=== PATIENT | male | born 1955 | race Caucasian/White ===

== ENCOUNTER 2017-10-21 09:45 | Inpatient (IN) | payer MEDICARE, MEDICAID ==
[2017-10-21 09:49] VITALS: BMI 25.7
--- NOTE | 2017-10-21 09:57 | C.PDOC ---
Time Seen by Provider: 10/21/17 09:54 Chief Complaint (Nursing): Weakness/Neurological Deficit Past Medical History - Medical History PMH: Anemia, GERD, HTN, Multiple Sclerosis, Seizures Denies: Alzheimer's Disease, Asthma, Atrial Fibrillation, Bronchitis, Cardia Arrhythmia, CHF, COPD, Dementia, Emphysema, HIV, Hypercholesterolemia, Hyperthyroidism, Hypothyroidism, Kidney Stones, Migraine, Mitral Valve Prolapse , Parkinson's Disease, Peripheral Edema, Pneumonia, Pulmonary Embolism, Chronic Kidney Disease, Sleep Apnea, TIA Surgical History: Denies: Pacemaker - [facility] Procedures INFUSION OF IMMUNOSUPPRESSIVE ANTIBODY THERAPY (05/01/14) INJECT CA CHEMOTHER NEC (02/03/14) INJECT/INFUSE NEC (05/19/13) Family History: States: Unknown Family Hx - Social History Hx Tobacco Use: No Hx Alcohol Use: No Hx Substance Use: No - Immunization History Hx Tetanus Toxoid Vaccination: No Hx Influenza Vaccination: No Hx Pneumococcal Vaccination: No Disposition - Disposition
--- NOTE | 2017-10-21 10:01 | C.PDOC ---
History Of Present Illness 62yo male, with history of MS, sent to ED from [facility] due to slurred speech for an unknown duration. Per patient, he has a chronic weakness to his right arm and bilateral legs. A full HPI and ROS is limited due to patient's clinical condition. LIMITED DUE TO CLIN COND Time Seen by Provider: 10/21/17 09:54 Chief Complaint (Nursing): Weakness/Neurological Deficit History Per: Other ([facility] records) History/Exam Limitations: clinical condition Onset/Duration Of Symptoms: Unknown Past Medical History Reviewed: Historical Data, Nursing Documentation, Vital Signs Vital Signs: Last Vital Signs Temp 101 F H 10/21/17 12:32 Pulse 106 H 10/21/17 12:32 Resp 18 10/21/17 12:32 BP 119/75 10/21/17 12:32 Pulse Ox 97 10/21/17 13:26 - Medical History PMH: Anemia, GERD, HTN, Multiple Sclerosis, Seizures Denies: Alzheimer's Disease, Asthma, Atrial Fibrillation, Bronchitis, Cardia Arrhythmia, CHF, COPD, Dementia, Emphysema, HIV, Hypercholesterolemia, Hyperthyroidism, Hypothyroidism, Kidney Stones, Migraine, Mitral Valve Prolapse , Parkinson's Disease, Peripheral Edema, Pneumonia, Pulmonary Embolism, Chronic Kidney Disease, Sleep Apnea, TIA Surgical History: Denies: Pacemaker - [facility] Procedures INFUSION OF IMMUNOSUPPRESSIVE ANTIBODY THERAPY (05/01/14) INJECT CA CHEMOTHER NEC (02/03/14) INJECT/INFUSE NEC (05/19/13) Family History: States: Unknown Family Hx - Social History Hx Tobacco Use: No Hx Alcohol Use: No Hx Substance Use: No - Immunization History Hx Tetanus Toxoid Vaccination: No Hx Influenza Vaccination: Yes Hx Pneumococcal Vaccination: Yes Review Of Systems Review Of Systems: ROS cannot be obtained secondary to pt's inabilty to answer questions. Physical Exam - Physical Exam Appears: Toxic (mild), Other (moderate painful distress) Skin: Normal Color, Warm, Other (large sacral pressure ulcer) Head: Atraumatic, Normacephalic Eye(s): bilateral: Normal Inspection, PERRL, EOMI Neck: Normal ROM, Supple Chest: Symmetrical Cardiovascular: Rhythm Regular Respiratory: Other (poor effort, no focal findinds) Gastrointestinal/Abdominal: Normal Exam, Soft, No Tenderness Back: Normal Inspection Extremity: Other (chronc contractions to right arm and bilateral legs) Neurological/Psych: Other (Appropriate response to verbal stimulus and command. CN) ED Course And Treatment - Laboratory Results Result Diagrams: 10/21/17 10:14 10/21/17 10:14 ECG: Interpreted By Me ECG Rhythm: Sinus Tachycardia Interpretation Of ECG: TWI I, AVL CHANGED FROM 2014 Rate From EC O2 Sat by Pulse Oximetry: 97 (RA) Pulse Ox Interpretation: Normal Progress - Re-Evaluation Re-evaluation Note: 10/21/17 12:00 IMPROVED ALERTNESS. @ BEDSIDE. STATES PT W SLURRED SPEECH X 4 DAYS, "LESS ALERT". CHRONIC RUE, B/L LEG WEAKNESS. PENDING LABS 10/21/17 13:26 D/W DR BHAT AWARE OF ER FINDINGS WILL ADMIT - Data Reviewed Data Reviewed: Lab, Diagnostic imaging, EKG, Old records - Continuity of Care Discussed patient case with:: Patient, Family-HIPPA compliant Medical Decision Making Medical Decision Making: Plan: -- CMP -- CBC -- Magnesium -- Phosphorous -- PT -- PTT -- VBG -- Urine culture -- Blood culture -- Urinalysis -- CXR -- EKG -- Tylenol 975 mg NE -- IV Lactated Ringers Prior records: Records from patient's last visit in 2014 reviewed, patient was bedridden due to MS. Disposition Counseled Patient/Family Regarding: Studies Performed, Diagnosis - Disposition Disposition: HOSPITALIZED Disposition Time: 14:02 Condition: STABLE Forms: [facility] (Fijian) - POA Present On Arrival: None - Clinical Impression Clinical Impression: Urinary tract infection, Altered mental status - Scribe Statement The provider has reviewed the documentation as recorded by the Scribe (Galilea Kothari) Provider Attestation: All medical record entries made by the Scribe were at my direction and personally dictated by me. I have reviewed the chart and agree that the record accurately reflects my personal performance of the history, physical exam, medical decision making, and the department course for this patient. I have also personally directed, reviewed, and agree with the discharge instructions and disposition. Decision To Admit - Pt Status Changed To: Hospital Disposition Of: Inpatient - Admit Certification Admit to Inpatient:: After my assessment, the patient will require hospitalization for at least two midnights. This is because of the severity of symptoms shown, intensity of services needed, and/or the medical risk in this patient being treated as an outpatient. - InPatient: Physician Admission Certification:: see note - . Bed Request Type: Regular Admitting Physician: Dayanara Bhat Patient Diagnosis: Urinary tract infection, Altered mental status
[2017-10-21 10:21] LABS: BASO % 0.4 % (0.0-2.0); EOS # 0.1 K/uL (0.0-0.7); HEMOGLOBIN 13.2 g/dL (12.0-18.0); LYMPH # 0.8 K/uL (1.0-4.3); LYMPH % 8.8 % (20.0-40.0); MEAN CELL VOLUME 86.4 fL (80.0-94.0); MEAN CORPUSCULAR HEMOGLOBIN 28.7 pg (27.0-31.0); MEAN CORPUSCULAR HGB CONC 33.2 g/dL (33.0-37.0); MEAN PLATELET VOLUME 9.4 fL (7.2-11.7); MONO # 0.5 K/uL (0.0-0.8); MONO % 5.1 % (0.0-10.0); NEUT # 7.8 K/uL (1.8-7.0); NEUT % 84.7 % (50.0-75.0); PLATELET COUNT 190 K/uL (130-400); RBC 4.59 Mil/uL (4.40-5.90); RED CELL DISTRIBUTION WIDTH 15.4 % (11.5-14.5); WHITE BLOOD COUNT 9.2 K/uL (4.8-10.8)
[2017-10-21 10:24] LABS: VENOUS BLOOD GAS BASE EXCESS 1.5 mmol/L (0.0-2.0); VENOUS BLOOD GAS PCO2 39 mmHg (40-60); VENOUS BLOOD GAS PO2 63 mm/Hg (30-55); VENOUS BLOOD PH 7.43 (7.32-7.43)
[2017-10-21 10:29] LABS: INR 1.2; PROTHROMBIN TIME 13.8 SECONDS (9.7-12.2)
--- NOTE | 2017-10-21 10:37 | RAD ---
HISTORY: Sepsis Patient COMPARISON: Chest radiograph dated 10/28/2014. FINDINGS: LUNGS: No active pulmonary disease. PLEURA: No significant pleural effusion identified, no pneumothorax apparent. CARDIOVASCULAR: Normal. OSSEOUS STRUCTURES: Unchanged. VISUALIZED UPPER ABDOMEN: Gaseous distention of bowel loops. OTHER FINDINGS: None. IMPRESSION: No active disease.
[2017-10-21 10:41] LABS: ALBUMIN 3.9 g/dL (3.5-5.0); ALT/SGPT 11 U/L (21-72); AST/SGOT 20 U/L (17-59); BLOOD UREA NITROGEN 14 mg/dL (9-20); CALCIUM 8.3 mg/dl (8.6-10.4); GFR AFRICAN-AMERICAN > 60; GFR NON-AFRICAN AMERICAN > 60
[2017-10-21] MEDS ORDERED: Vancomycin 1 gm/NS 200 ml 1 GM/200 ML BAG IVPB STA (10:42)
[2017-10-21] MEDS ORDERED: Piperacill/Tazo 3.375gm in Dex 3.375 GM/50 ML BAG IVPB STA (10:42)
[2017-10-21 10:49] LABS: BANDS 2 % (0-2); MONOCYTE 6 % (0-10); TOTAL CELLS COUNTED 100
[2017-10-21 10:50] LABS: ANISOCYTOSIS SLIGHT; LYMPHOCYTE 11 % (20-40); NEUTROPHIL 81 % (50-75); PLATELET ESTIMATE NORMAL (NORMAL)
[2017-10-21 11:36] LABS: SQUAMOUS EPITHIAL < 1 /hpf (0-5); URINE BACTERIA RARE (<OCC); URINE BILIRUBIN NEGATIVE (NEGATIVE); URINE BLOOD NEGATIVE (NEGATIVE); URINE CLARITY Hazy (Clear); URINE COLOR Yellow (YELLOW); URINE GLUCOSE (UA) NORMAL (Normal); URINE LEUKOCYTE ESTERASE 3+ Leu/uL (Negative); URINE PROTEIN NEGATIVE (NEGATIVE); URINE UROBILINOGEN NORMAL mg/dL (0.2-1.0)
[2017-10-21] MEDS ORDERED: Vancomycin 1 GM 1 GM/250 ML BAG IVPB ONE (12:06)
[2017-10-21] MEDS ORDERED: Piperacillin/Tazobact 3.375 gm 100 ML IVPB ONE (12:06)
--- NOTE | 2017-10-21 14:17 | CP.PCM.HP ---
History of Present Illness - History of Present Illness History of Present Illness: COMPREHENSIVE HISTORY & PHYSICAL EXAM HPI PT TRANSFERRED FROM [place] AFTER PT FOUNG TO HAVE CHANGE OF MENTAL STATUS AND TEMP OF 101F . EVALUATED IN ER, SHOWED URO SEPSIS . PT HAS PH OF MS IN [place] , BED BOUND WITH NO POWER L EXT AND UPPER EXT HTN PAST HIST. PERSONAL HIST: Smoking. N Alcohol. N Allergy N Travel_- . FAMILY HIST : ROS : Constitutional: Negative for weight change, Eyes: Negative for redness, swelling, itching, discharge, vision changes, blurry vision, double vision, glaucoma, cataracts, Ears: Negative for hearing loss, ringing, , tinnitus, vertigo Nose: Negative for rhinorrhea, stuffiness, sniffing, itching, postnasal drip, discoloration, nasal congestion and epistaxis. Throat: Negative for throat clearing, sore throat, hoarseness, difficulty swallowing and difficulty speaking. Respiratory: Negative for cough, , sputum production, chest tightness, wheezing, pleuritic chest pain ,daytime somnolence, chronic cough, hemoptysis, snoring at night, Cardiovascular: Negative for chest pain, palpitations, orthopnea, PND, Edema of legs, leg cramps, angina, claudication, , irregular heartbeat, Neurology: Negative for seizures, tremors, migraines, slurred speech, syncope , memory loss, mood changes, recurrent headaches Gastrointestinal: Negative for difficulty swallowing, diarrhea, constipation, black stools, rectal bleeding, nausea, flatulence, reflux, poor appetite, changes in bowel habits, abdominal pain Genitourinary: Negative for frequent urination, hematuria, discharge, incontinence, urinary retention, frequent UTI, Psychiatric: Negative for depression, anxiety/panic, suicidal tendencies, Musculoskeletal: Negative for swollen joints, back pain, , neck pain, morning stiffness of joints, . Skin: Negative for rash,itching, dry skin and pigmented lesions. P/E: Constitutional: Appears stated age and in no apparent distress. Head: Normocephalic. Ears: External ear canals patent without inflammation. Tympanic membranes intact with normal light reflex and landmark. Eyes: Pupils are central, bilaterally equal, symmetrical and reacts to light with normal movements and no icterus or pallor. Nose: External nares are patent. Mucosa is pink Mouth-Throat: Good general appearance and condition. No post-pharyngeal/oropharyngeal erythema and tonsillar hypertrophy. Good dental hygiene. Neck-Lymphatic: Neck is supple with normal ROM, no thyromegaly, lymph nodes or masses. JVD is normal with no carotid bruit. Lungs: Clear to percussion and auscultation with bilateral normal air entry. Cardiovascular: S1 and S2 are normal with no murmurs, gallops and rub. GI Exam: No hepatomegaly. Abdomen is soft and non-tender. No Organomegaly , masses or hernias are evident and bowel sounds are normal and active. Neurology: Higher function and all cranial nerves intact, NO POWER ALL EXT WITH REFLEXES DOWN , Musculoskeletal: No tender spots with normal curvature of the spine with no swelling or restricted ROM of the small and large joints. CONTRACTURE OF BOTH HANDS Extremities: Homans sign absent. Intact pulses with no pitting edema, calf tenderness or skin color changes. Skin: No rash, eruptions or abnormal skin pigmentation STG. 2 LEFT GLUTEAL D. ULCER LAB/RADIOLOGY: ASSESMENT : UTI WITH SEPSIS , CHANGE OF MENTAL STATUS MS , SLOWLY PROGRESSING HTN STG 2 L GLUTEAL DECUBITI PLAN: IV FLUIDS IV AB ID EVAL Present on Admission - Present on Admission History of DVT/PE: No History of Uncontrolled Diabetes: No Urinary Catheter: No Decubitus Ulcer Present: Yes (left glut. fold ) Decubitus Ulcer Stage: II Past Patient History - Past Social History Smoking Status: Unknown If Ever Smoked - CARDIAC Hx Atrial Fibrillation: No Hx Cardia Arrhythmia: No Hx Congestive Heart Failure: No Hx Hypercholesterolemia: No Hx Hypertension: Yes Hx Mitral Valve Prolapse: No Hx Pacemaker: No Hx Peripheral Edema: No - PULMONARY Hx Asthma: No Hx Bronchitis: No Hx Chronic Obstructive Pulmonary Disease (COPD): No Hx Emphysema: No Hx Pneumonia: No Hx Pulmonary Embolism: No Hx Sleep Apnea: No - NEUROLOGICAL Hx Alzheimer's Disease: No Hx Dementia: No Hx Migraine: No Hx Multiple Sclerosis: Yes Hx Parkinson's Disease: No Hx Seizures: Yes Hx Transient Ischemic Attacks (TIA): No - HEENT Hx HEENT Problems: No Hx Blind: No Hx Cataracts: No Hx Deafness: No Hx Difficulty Chewing: No Hx Epistaxis: No Hx Glaucoma: No Hx Macular Degeneration: No - RENAL Hx Chronic Kidney Disease: No Hx Kidney Stones: No - ENDOCRINE/METABOLIC Hx Hyperthyroidism: No Hx Hypothyroidism: No - HEMATOLOGICAL/ONCOLOGICAL Hx Anemia: Yes Hx Human Immunodeficiency Virus (HIV): No - MUSCULOSKELETAL/RHEUMATOLOGICAL Hx Falls: No - GASTROINTESTINAL Hx Gastrointestinal Disorders: Yes Hx Gastroesophageal Reflux: Yes - PSYCHIATRIC Hx Substance Use: No Meds Allergies/Adverse Reactions: Allergies Allergy/AdvReac Type Severity Reaction Status Date / Time No Known Allergies Allergy Verified 10/21/17 09:48 Results - Vital Signs Recent Vital Signs: Last Vital Signs Temp 101 F H 10/21/17 12:32 Pulse 106 H 10/21/17 12:32 Resp 18 10/21/17 12:32 BP 119/75 10/21/17 12:32 Pulse Ox 97 10/21/17 14:03 - Labs Result Diagrams: 10/22/17 07:26 10/22/17 07:26 Labs: Laboratory Results - last 24 hr 10/21/17 10/21/17 10/21/17 09:48 10:14 10:14 WBC 9.2 RBC 4.59 Hgb 13.2 D Hct 39.7 MCV 86.4 MCH 28.7 MCHC 33.2 RDW 15.4 H Plt Count 190 MPV 9.4 Neut % (Auto) 84.7 H Lymph % (Auto) 8.8 L [place] % (Auto) 5.1 Eos % (Auto) 1.0 Baso % (Auto) 0.4 Neut # (Auto) 7.8 H Lymph # (Auto) 0.8 L [place] # (Auto) 0.5 Eos # (Auto) 0.1 Baso # (Auto) 0.0 Neutrophils % (Manual) 81 H Band Neutrophils % 2 Lymphocytes % (Manual) 11 L Monocytes % (Manual) 6 Platelet Estimate Normal Anisocytosis (manual) Slight PT 13.8 H INR 1.2 APTT 31 pO2 VBG pH VBG pCO2 VBG HCO3 VBG Total CO2 VBG O2 Sat (Calc) VBG Base Excess VBG Potassium Glucose Lactate Sodium Potassium Chloride Carbon Dioxide Anion Gap BUN Creatinine Est GFR ( Amer) Est GFR (Non-Af Amer) POC Glucose (mg/dL) 87 Random Glucose Calcium Phosphorus Magnesium Total Bilirubin AST ALT Alkaline Phosphatase Troponin I Total Protein Albumin Globulin Albumin/Globulin Ratio Venous Blood Potassium Urine Color Urine Clarity Urine pH Ur Specific [place] Urine Protein Urine Glucose (UA) Urine Ketones Urine Blood Urine Nitrate Urine Bilirubin Urine Urobilinogen Ur Leukocyte Esterase Urine WBC (Auto) Urine RBC (Auto) Ur Squamous Epith Cells Urine Bacteria Influenza Typ A,B (EIA) 10/21/17 10/21/17 10/21/17 10:14 10:19 11:17 WBC RBC Hgb Hct MCV MCH MCHC RDW Plt Count MPV Neut % (Auto) Lymph % (Auto) [place] % (Auto) Eos % (Auto) Baso % (Auto) Neut # (Auto) Lymph # (Auto) [place] # (Auto) Eos # (Auto) Baso # (Auto) Neutrophils % (Manual) Band Neutrophils % Lymphocytes % (Manual) Monocytes % (Manual) Platelet Estimate Anisocytosis (manual) PT INR APTT pO2 63 H VBG pH 7.43 VBG pCO2 39 L VBG HCO3 26.0 VBG Total CO2 27.1 VBG O2 Sat (Calc) 95.9 H VBG Base Excess 1.5 VBG Potassium 3.6 Glucose 90 Lactate 1.3 Sodium 144 142.0 Potassium 3.7 Chloride 105 107.0 Carbon Dioxide 25 Anion Gap 17 BUN 14 Creatinine 0.7 L Est GFR ( Amer) > 60 Est GFR (Non-Af Amer) > 60 POC Glucose (mg/dL) Random Glucose 93 Calcium 8.3 L Phosphorus 2.4 L Magnesium 1.8 Total Bilirubin 0.8 AST 20 ALT 11 L D Alkaline Phosphatase 74 Troponin I < 0.0120 Total Protein 7.7 Albumin 3.9 Globulin 3.7 Albumin/Globulin Ratio 1.0 Venous Blood Potassium 3.6 Urine Color Yellow Urine Clarity Hazy Urine pH 5.0 Ur Specific [place] 1.018 Urine Protein Negative Urine Glucose (UA) Normal Urine Ketones Negative Urine Blood Negative Urine Nitrate Negative Urine Bilirubin Negative Urine Urobilinogen Normal Ur Leukocyte Esterase 3+ H Urine WBC (Auto) 221 H Urine RBC (Auto) 3 Ur Squamous Epith Cells < 1 Urine Bacteria Rare Influenza Typ A,B (EIA) 10/21/17 11:54 WBC RBC Hgb Hct MCV MCH MCHC RDW Plt Count MPV Neut % (Auto) Lymph % (Auto) [place] % (Auto) Eos % (Auto) Baso % (Auto) Neut # (Auto) Lymph # (Auto) [place] # (Auto) Eos # (Auto) Baso # (Auto) Neutrophils % (Manual) Band Neutrophils % Lymphocytes % (Manual) Monocytes % (Manual) Platelet Estimate Anisocytosis (manual) PT INR APTT pO2 VBG pH VBG pCO2 VBG HCO3 VBG Total CO2 VBG O2 Sat (Calc) VBG Base Excess VBG Potassium Glucose Lactate Sodium Potassium Chloride Carbon Dioxide Anion Gap BUN Creatinine Est GFR ( Amer) Est GFR (Non-Af Amer) POC Glucose (mg/dL) Random Glucose Calcium Phosphorus Magnesium Total Bilirubin AST ALT Alkaline Phosphatase Troponin I Total Protein Albumin Globulin Albumin/Globulin Ratio Venous Blood Potassium Urine Color Urine Clarity Urine pH Ur Specific [place] Urine Protein Urine Glucose (UA) Urine Ketones Urine Blood Urine Nitrate Urine Bilirubin Urine Urobilinogen Ur Leukocyte Esterase Urine WBC (Auto) Urine RBC (Auto) Ur Squamous Epith Cells Urine Bacteria Influenza Typ A,B (EIA) Negative for flu a/b
--- NOTE | 2017-10-21 14:29 | CT ---
PROCEDURE: CT HEAD WITHOUT CONTRAST. HISTORY: AMS COMPARISON: CT head dated 07/17/2012. TECHNIQUE: Axial computed tomography images were obtained through the head/brain without intravenous contrast. Radiation dose: Total exam DLP = 1349.9 mGy-cm. This CT exam was performed using one or more of the following dose reduction techniques: Automated exposure control, adjustment of the mA and/or kV according to patient size, and/or use of iterative reconstruction technique. FINDINGS: HEMORRHAGE: No intracranial hemorrhage. BRAIN: No mass effect or edema. Mild atrophy. Mild chronic microvascular ischemic changes. Nonspecific hypodensities in the supratentorial white matter. VENTRICLES: Mildly prominent. No hydrocephalus. CALVARIUM: Unremarkable. PARANASAL SINUSES: Unremarkable as visualized. No significant inflammatory changes. MASTOID AIR CELLS: Unremarkable as visualized. No inflammatory changes. OTHER FINDINGS: None. IMPRESSION: Nonspecific small hypodensities in the supratentorial white matter. MRI of the brain is recommended for further evaluation.
[2017-10-21] MEDS ORDERED: Enoxaparin 40 mg Syringe SC SCH (14:30)
[2017-10-21 14:35] LABS: VENOUS BLOOD GAS BASE EXCESS 0.3 mmol/L (0.0-2.0); VENOUS BLOOD GAS PCO2 42 mmHg (40-60); VENOUS BLOOD GAS PO2 37 mm/Hg (30-55); VENOUS BLOOD PH 7.39 (7.32-7.43)
[2017-10-21 16:17] VITALS: RESP 20
--- NOTE | 2017-10-21 18:15 | CP.PCM.CON ---
History of Present Illness - History of Present Illness History of Present Illness: INFECTIOUS DISEASE CONSULT; History of Present Illness: 62-year-old male admitted via the emergency room because of altered mental status and slurring of the speech and elevated temperature to 101-102 as noted. Patient is a [facility] resident with history of multiple sclerosis, anemia, GERD, hypertension. A Vyas catheter was inserted while in the ER and appropriate cultures were done. Urine was cloudy and hazy with wbc's of 221 and 3+ leukocytes. Patient unable to give any details. History obtained mainly from the chart/and who is at the bedside. Patient was given a dose of Zosyn 3.3751 in the ER and vancomycin 1 g IV piggyback 1 dose. Infectious disease consultation requested by PMD for further evaluation. PMH: Anemia, GERD, HTN, Multiple Sclerosis, Seizures Other PMH: Urosepsis, Syncope, bradycardia Surgical History: No Surg Hx. ALLERGY; NKA Social History;denies smoking, denies drinking. Patient is a [facility] resident. MEDS; SEE MARS. Review of Systems - Review of Systems Systems not reviewed;Unavailable: Altered Mental Status - Constitutional Constitutional: Chills, Fever, Lethargy - EENT Nose/Mouth/Throat: Dry Mouth - Cardiovascular Cardiovascular: absent: Dyspnea - Respiratory Respiratory: absent: Cough - Gastrointestinal Gastrointestinal: absent: Nausea, Vomiting - Genitourinary Genitourinary: Pyuria, Freq UTI - Musculoskeletal Musculoskeletal: As Per HPI, Limited Range of Motion, Muscle Weakness - Integumentary Integumentary: Skin Ulcer (LT. BUTTOCK-STAGE 2) - Neurological Neurological: As Per HPI (SLURRING OF SPEECH.), Confusion, Weakness. absent: Syncope - Hematologic/Lymphatic Hematologic: As Per HPI Past Patient History - Past Social History Smoking Status: Unknown If Ever Smoked - CARDIAC Hx Atrial Fibrillation: No Hx Cardia Arrhythmia: No Hx Congestive Heart Failure: No Hx Hypercholesterolemia: No Hx Hypertension: Yes Hx Mitral Valve Prolapse: No Hx Pacemaker: No Hx Peripheral Edema: No - PULMONARY Hx Asthma: No Hx Bronchitis: No Hx Chronic Obstructive Pulmonary Disease (COPD): No Hx Emphysema: No Hx Pneumonia: No Hx Pulmonary Embolism: No Hx Sleep Apnea: No - NEUROLOGICAL Hx Alzheimer's Disease: No Hx Dementia: No Hx Migraine: No Hx Multiple Sclerosis: Yes Hx Parkinson's Disease: No Hx Seizures: Yes Hx Transient Ischemic Attacks (TIA): No - HEENT Hx HEENT Problems: No Hx Blind: No Hx Cataracts: No Hx Deafness: No Hx Difficulty Chewing: No Hx Epistaxis: No Hx Glaucoma: No Hx Macular Degeneration: No - RENAL Hx Chronic Kidney Disease: No Hx Kidney Stones: No - ENDOCRINE/METABOLIC Hx Hyperthyroidism: No Hx Hypothyroidism: No - HEMATOLOGICAL/ONCOLOGICAL Hx Anemia: Yes Hx Human Immunodeficiency Virus (HIV): No - MUSCULOSKELETAL/RHEUMATOLOGICAL Hx Falls: No - GASTROINTESTINAL Hx Gastrointestinal Disorders: Yes Hx Gastroesophageal Reflux: Yes - PSYCHIATRIC Hx Substance Use: No Meds Allergies/Adverse Reactions: Allergies Allergy/AdvReac Type Severity Reaction Status Date / Time No Known Allergies Allergy Verified 10/21/17 09:48 - Medications Medications: Current Medications Acetaminophen (Tylenol 325 Mg Supp) 975 mg MO ONCE PRN PRN Reason: Fever >100.4 F Last Admin: 10/21/17 09:55 Dose: 975 mg Baclofen (Lioresal) 20 mg PO QID [facility] Diazepam (Valium) 5 mg PO HS [facility] Enoxaparin Sodium (Lovenox) mg SC DAILY [facility] Famotidine (Pepcid) 20 mg PO DAILY [facility] Heparin Sodium (Porcine) (Heparin) 5,000 units SC Q12 [facility] Home Med (Losartan) 1 tab PO DAILY [facility] Home Med (Zinc Oxide [Boudreauxs]) 10 gm TP TID [facility] Lactic Acid (Lac-Hydrin 12% Lotion (225 G)) 1 gm TOP DAILY [facility] Losartan Potassium (Cozaar) 50 mg PO DAILY [facility] Magnesium Hydroxide (Milk Of Magnesia) 30 ml PO HS [facility] Physical Exam - Constitutional Appears: No Acute Distress, Confused - Head Exam Head Exam: NORMAL INSPECTION - Eye Exam Eye Exam: EOMI, PERRL - ENT Exam ENT Exam: Mucous Membranes Dry - Neck Exam Neck exam: Positive for: Normal Inspection. Negative for: Meningismus - Respiratory Exam Respiratory Exam: Decreased Breath Sounds - Cardiovascular Exam Cardiovascular Exam: REGULAR RHYTHM, +S1, +S2 - GI/Abdominal Exam GI & Abdominal Exam: Normal Bowel Sounds, Soft. absent: Tenderness - Extremities Exam Extremities exam: Positive for: pedal pulses present. Negative for: calf tenderness, full ROM (chronc contractions to right arm and bilateral legs) - Neurological Exam Neurological exam: Altered (SLURRED SPEECH.) - Psychiatric Exam Psychiatric exam: Flat Affect - Skin Skin Exam: Warm Results - Vital Signs Recent Vital Signs: Last Vital Signs Temp 99.3 F 10/21/17 15:30 Pulse 82 10/21/17 15:30 Resp 20 10/21/17 15:30 BP 122/81 10/21/17 15:30 Pulse Ox 100 10/21/17 15:30 - Labs Result Diagrams: 10/21/17 10:14 10/21/17 10:14 Labs: Laboratory Results - last 24 hr 10/21/17 10/21/17 10/21/17 09:48 10:14 10:14 WBC 9.2 RBC 4.59 Hgb 13.2 D Hct 39.7 MCV 86.4 MCH 28.7 MCHC 33.2 RDW 15.4 H Plt Count 190 MPV 9.4 Neut % (Auto) 84.7 H Lymph % (Auto) 8.8 L Hopkins % (Auto) 5.1 Eos % (Auto) 1.0 Baso % (Auto) 0.4 Neut # (Auto) 7.8 H Lymph # (Auto) 0.8 L Hopkins # (Auto) 0.5 Eos # (Auto) 0.1 Baso # (Auto) 0.0 Neutrophils % (Manual) 81 H Band Neutrophils % 2 Lymphocytes % (Manual) 11 L Monocytes % (Manual) 6 Platelet Estimate Normal Anisocytosis (manual) Slight PT 13.8 H INR 1.2 APTT 31 pO2 VBG pH VBG pCO2 VBG HCO3 VBG Total CO2 VBG O2 Sat (Calc) VBG Base Excess VBG Potassium Glucose Lactate Sodium Potassium Chloride Carbon Dioxide Anion Gap BUN Creatinine Est GFR ( Amer) Est GFR (Non-Af Amer) POC Glucose (mg/dL) 87 Random Glucose Calcium Phosphorus Magnesium Total Bilirubin AST ALT Alkaline Phosphatase Troponin I Total Protein Albumin Globulin Albumin/Globulin Ratio Venous Blood Potassium Urine Color Urine Clarity Urine pH Ur Specific [place] Urine Protein Urine Glucose (UA) Urine Ketones Urine Blood Urine Nitrate Urine Bilirubin Urine Urobilinogen Ur Leukocyte Esterase Urine WBC (Auto) Urine RBC (Auto) Ur Squamous Epith Cells Urine Bacteria Influenza Typ A,B (EIA) 10/21/17 10/21/17 10/21/17 10:14 10:19 11:17 WBC RBC Hgb Hct MCV MCH MCHC RDW Plt Count MPV Neut % (Auto) Lymph % (Auto) Hopkins % (Auto) Eos % (Auto) Baso % (Auto) Neut # (Auto) Lymph # (Auto) Hopkins # (Auto) Eos # (Auto) Baso # (Auto) Neutrophils % (Manual) Band Neutrophils % Lymphocytes % (Manual) Monocytes % (Manual) Platelet Estimate Anisocytosis (manual) PT INR APTT pO2 63 H VBG pH 7.43 VBG pCO2 39 L VBG HCO3 26.0 VBG Total CO2 27.1 VBG O2 Sat (Calc) 95.9 H VBG Base Excess 1.5 VBG Potassium 3.6 Glucose 90 Lactate 1.3 Sodium 144 142.0 Potassium 3.7 Chloride 105 107.0 Carbon Dioxide 25 Anion Gap 17 BUN 14 Creatinine 0.7 L Est GFR ( Amer) > 60 Est GFR (Non-Af Amer) > 60 POC Glucose (mg/dL) Random Glucose 93 Calcium 8.3 L Phosphorus 2.4 L Magnesium 1.8 Total Bilirubin 0.8 AST 20 ALT 11 L D Alkaline Phosphatase 74 Troponin I < 0.0120 Total Protein 7.7 Albumin 3.9 Globulin 3.7 Albumin/Globulin Ratio 1.0 Venous Blood Potassium 3.6 Urine Color Yellow Urine Clarity Hazy Urine pH 5.0 Ur Specific [place] 1.018 Urine Protein Negative Urine Glucose (UA) Normal Urine Ketones Negative Urine Blood Negative Urine Nitrate Negative Urine Bilirubin Negative Urine Urobilinogen Normal Ur Leukocyte Esterase 3+ H Urine WBC (Auto) 221 H Urine RBC (Auto) 3 Ur Squamous Epith Cells < 1 Urine Bacteria Rare Influenza Typ A,B (EIA) 10/21/17 10/21/17 11:54 14:31 WBC RBC Hgb Hct MCV MCH MCHC RDW Plt Count MPV Neut % (Auto) Lymph % (Auto) Hopkins % (Auto) Eos % (Auto) Baso % (Auto) Neut # (Auto) Lymph # (Auto) Hopkins # (Auto) Eos # (Auto) Baso # (Auto) Neutrophils % (Manual) Band Neutrophils % Lymphocytes % (Manual) Monocytes % (Manual) Platelet Estimate Anisocytosis (manual) PT INR APTT pO2 37 VBG pH 7.39 VBG pCO2 42 VBG HCO3 24.4 VBG Total CO2 26.7 VBG O2 Sat (Calc) 76.6 H VBG Base Excess 0.3 VBG Potassium 3.6 Glucose 91 Lactate 1.9 Sodium 144.0 Potassium Chloride 109.0 H Carbon Dioxide Anion Gap BUN Creatinine Est GFR ( Amer) Est GFR (Non-Af Amer) POC Glucose (mg/dL) Random Glucose Calcium Phosphorus Magnesium Total Bilirubin AST ALT Alkaline Phosphatase Troponin I Total Protein Albumin Globulin Albumin/Globulin Ratio Venous Blood Potassium 3.6 Urine Color Urine Clarity Urine pH Ur Specific [place] Urine Protein Urine Glucose (UA) Urine Ketones Urine Blood Urine Nitrate Urine Bilirubin Urine Urobilinogen Ur Leukocyte Esterase Urine WBC (Auto) Urine RBC (Auto) Ur Squamous Epith Cells Urine Bacteria Influenza Typ A,B (EIA) Negative for flu a/b - Imaging and Cardiology CT scan - head Status: Report reviewed by me (NONSPECIFIC SMALL HYPODENSITIES SUPRATENTORIAL WHITE MATTER. mri SUGGESTED.) Assessment & Plan (1) Sepsis syndrome Status: Acute (2) Altered mental status Status: Acute (3) Urinary tract infection Status: Acute (4) Multiple sclerosis Status: Acute - Assessment and Plan (Free Text) Plan: PANCULTURE. WOUND CULTURE LT/BUTTOCK -P PATIENT GOT ONE DOSE OF ZOSYN 3.375 G IN THE ER AND ONE DOSE OF VANCOMYCIN 1 G AFTER APPROPRIATE CULTURES. START iv MAXIPEME 2 G iv PIGGYBACK EVERY 12 HOURLY. 10/21/17. FOR BETTER GRAM-NEGATIVE ESBL E.COLI/kLEBSIELLA PNEUMONIAE COVERAGE. FOLLOW-UP CULTURES TO ADJUST ANTIBIOTICS. LWC aS PER WOUND CARE. cASE DISCUSSED WITH THE STAFF /PMD..
[2017-10-21] MEDS: Cefepime IV 2 gm in Dextrose 2 GM/100 ML BAG IVPB SCH (21:44)
[2017-10-21] MEDS: Magnesium Hydroxide Susp 30 ml UD PO SCH (21:44)
[2017-10-22 07:43] LABS: BASO % 0.7 % (0.0-2.0); EOS # 0.1 K/uL (0.0-0.7); EOS % 2.2 % (0.0-4.0); HEMOGLOBIN 12.4 g/dL (12.0-18.0); LYMPH # 1.5 K/uL (1.0-4.3); LYMPH % 26.6 % (20.0-40.0); MEAN CELL VOLUME 86.7 fL (80.0-94.0); MEAN CORPUSCULAR HEMOGLOBIN 29.1 pg (27.0-31.0); MEAN CORPUSCULAR HGB CONC 33.5 g/dL (33.0-37.0); MEAN PLATELET VOLUME 9.6 fL (7.2-11.7); MONO # 0.5 K/uL (0.0-0.8); MONO % 8.8 % (0.0-10.0); NEUT # 3.4 K/uL (1.8-7.0); NEUT % 61.7 % (50.0-75.0); RBC 4.25 Mil/uL (4.40-5.90); RED CELL DISTRIBUTION WIDTH 15.5 % (11.5-14.5); WHITE BLOOD COUNT 5.5 K/uL (4.8-10.8)
[2017-10-22] MEDS: Cefepime IV 2 gm in Dextrose 2 GM/100 ML BAG IVPB SCH ×2 (09:27→21:57)
[2017-10-22 09:51] LABS: ALBUMIN 3.7 g/dL (3.5-5.0); AST/SGOT 39 U/L (17-59); BLOOD UREA NITROGEN 18 mg/dL (9-20); CALCIUM 8.3 mg/dl (8.6-10.4); GFR AFRICAN-AMERICAN > 60; GFR NON-AFRICAN AMERICAN > 60
[2017-10-22] MEDS ORDERED: LOSARTAN PO SCH (10:00)
[2017-10-22 10:22] LABS: ALT/SGPT 7 U/L (21-72)
--- NOTE | 2017-10-22 13:57 | CP.PCM.PN ---
Subjective - Date & Time of Evaluation Date of Evaluation: 10/22/17 Time of Evaluation: 13:54 - Subjective Subjective: CHIEF COMPLAINTS TODAY : MORE ALERT NO ACUTE DISTRESS ROS. HEENT : N. Resp : No cough, wheezing ,pleuritic CP ,or hemoptysis Cardio : No anginal CP, PND, orthopnea, palpitation GI : No abd.pain, n/v ,diarrhea or GI bleeding . 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 Ext : No swelling ,calf pain PE. Pt. is alert awake in no distress. V.S As noted in the chart Head ,ear nose,throat and eyes : Normal. Neck : Supple with normal carotids. Lungs: Clear air entry. Heart : S1 & S2 normal with S4. No murmur. Abd : Soft non tender with normal bowel sounds. Neuro : ALL EXT MOTOR WEAKNESS Ext : No edema with intact pulses.Non tender calves Derm : No rashes or GRADE 2 L. GLUTEAL decubitus ulcer. LABS/RADIOLOGY: DU MULTI ORGANISM / URINE GRAM -VE >100,000 ASSESSMENT/PLAN : IV AB LOCAL D ULCER CARE Objective - Vital Signs/Intake and Output Vital Signs (last 24 hours): Temp Pulse Resp BP Pulse Ox 98.4 F 76 20 118/73 98 10/22/17 08:20 10/22/17 08:20 10/22/17 08:20 10/22/17 08:20 10/22/17 08:20 Intake and Output: 10/22/17 10/22/17 11:59 23:59 Intake Total 120 Output Total 200 Balance -80 - Medications Medications: Current Medications Acetaminophen (Tylenol 325 Mg Supp) 975 mg KS ONCE PRN PRN Reason: Fever >100.4 F Last Admin: 10/21/17 09:55 Dose: 975 mg Baclofen (Lioresal) 20 mg PO QID [facility] Last Admin: 10/22/17 09:27 Dose: 20 mg Diazepam (Valium) 5 mg PO HS [facility] Last Admin: 10/21/17 21:44 Dose: 5 mg Famotidine (Pepcid) 20 mg PO DAILY [facility] Last Admin: 10/22/17 09:27 Dose: 20 mg Heparin Sodium (Porcine) (Heparin) 5,000 units SC Q12 [facility] Last Admin: 10/22/17 09:27 Dose: 5,000 units Home Med (Zinc Oxide [Boudreauxs]) 10 gm TP TID [facility] Cefepime HCl (Maxipime Iv 2 Gm Premix) 2 gm in 100 mls @ 200 mls/hr IVPB Q12H [facility] PRN Reason: Protocol Stop: 10/26/17 22:01 Last Admin: 10/22/17 09:27 Dose: 200 mls/hr Lactic Acid (Lac-Hydrin 12% Lotion (225 G)) 1 gm TOP DAILY [facility] Losartan Potassium (Cozaar) 50 mg PO DAILY [facility] Last Admin: 10/22/17 09:27 Dose: 50 mg Magnesium Hydroxide (Milk Of Magnesia) 30 ml PO HS [facility] Last Admin: 10/21/17 21:44 Dose: 30 ml Pneumococcal Polyvalent Vaccine (Pneumovax 23 Vaccine) 0.5 ml IM .ONCE ONE Stop: 10/24/17 10:01 - Labs Labs: 10/22/17 07:26 10/22/17 07:26 PT 13.8 SECONDS (9.7-12.2) H 10/21/17 10:14 INR 1.2 10/21/17 10:14 APTT 31 SECONDS (21-34) 10/21/17 10:14
[2017-10-22] MEDS: Ammonium Lactate 12% Lotion (225 g) TOP SCH (14:20)
[2017-10-22] MEDS: Magnesium Hydroxide Susp 30 ml UD PO SCH (22:00)
--- NOTE | 2017-10-22 23:10 | CP.PCM.PN ---
Subjective - Date & Time of Evaluation Date of Evaluation: 10/22/17 Time of Evaluation: 23:09 - Subjective Subjective: CHIEF COMPLAINTS TODAY : MORE ALERT TRYING TO VERBALIZE. SPEECH STILL NOT CLEAR ROS. HEENT : N. Resp : No cough, wheezing ,pleuritic CP ,or hemoptysis Cardio : No anginal CP, PND, orthopnea, palpitation GI : No abd.pain, n/v ,diarrhea or GI bleeding . 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 Ext : No swelling ,calf pain PE. Pt. is alert awake in no distress. V.S As noted in the chart Head ,ear nose,throat and eyes : Normal. Neck : Supple with normal carotids. Lungs: Clear air entry. Heart : S1 & S2 normal with S4. No murmur. Abd : Soft non tender with normal bowel sounds. Neuro : ALL EXT MOTOR WEAKNESS Ext : No edema with intact pulses.Non tender calves Derm : No rashes or GRADE 2 L. GLUTEAL decubitus ulcer. LABS/RADIOLOGY: BLOOD CULTURES 10/21/17 -VE GROWTH FOR 24 HOURS. URINE GRAM -VE >100,000 ORGANISMS PER Ml. DECUBITUS ULCER SKIN GNR/GPC ASSESSMENT/PLAN : ON iv MAXIPEME 2 G iv PIGGYBACK EVERY 12 HOURLY. 10/21/17. FOR BETTER GRAM-NEGATIVE ESBL E.COLI/kLEBSIELLA PNEUMONIAE COVERAGE. FOLLOW-UP CULTURES TO ADJUST ANTIBIOTICS. LOCAL DEC.-.ULCER CARE PER WOUND CARE. Objective - Vital Signs/Intake and Output Vital Signs (last 24 hours): Temp Pulse Resp BP Pulse Ox 98.3 F 76 20 113/72 100 10/22/17 15:55 10/22/17 15:55 10/22/17 15:55 10/22/17 15:55 10/22/17 15:55 Intake and Output: 10/22/17 10/23/17 18:59 06:59 Intake Total 450 300 Output Total 300 Balance 150 300 - Medications Medications: Current Medications Acetaminophen (Tylenol 325 Mg Supp) 975 mg KS ONCE PRN PRN Reason: Fever >100.4 F Last Admin: 10/21/17 09:55 Dose: 975 mg Baclofen (Lioresal) 20 mg PO QID [facility] Last Admin: 10/22/17 21:57 Dose: 20 mg Diazepam (Valium) 5 mg PO HS [facility] Last Admin: 10/22/17 21:57 Dose: 5 mg Famotidine (Pepcid) 20 mg PO DAILY [facility] Last Admin: 10/22/17 09:27 Dose: 20 mg Heparin Sodium (Porcine) (Heparin) 5,000 units SC Q12 [facility] Last Admin: 10/22/17 21:56 Dose: 5,000 units Home Med (Zinc Oxide [Boudreauxs]) 10 gm TP TID [facility] Cefepime HCl (Maxipime Iv 2 Gm Premix) 2 gm in 100 mls @ 200 mls/hr IVPB Q12H [facility] PRN Reason: Protocol Stop: 10/26/17 22:01 Last Admin: 10/22/17 21:57 Dose: 200 mls/hr Lactic Acid (Lac-Hydrin 12% Lotion (225 G)) 1 gm TOP DAILY [facility] Last Admin: 10/22/17 14:20 Dose: Not Given Losartan Potassium (Cozaar) 50 mg PO DAILY [facility] Last Admin: 10/22/17 09:27 Dose: 50 mg Magnesium Hydroxide (Milk Of Magnesia) 30 ml PO HS [facility] Last Admin: 10/21/17 21:44 Dose: 30 ml Pneumococcal Polyvalent Vaccine (Pneumovax 23 Vaccine) 0.5 ml IM .ONCE ONE Stop: 10/24/17 10:01 - Labs Labs: 10/22/17 07:26 10/22/17 07:26 PT 13.8 SECONDS (9.7-12.2) H 10/21/17 10:14 INR 1.2 10/21/17 10:14 APTT 31 SECONDS (21-34) 10/21/17 10:14 Assessment and Plan (1) Sepsis syndrome Status: Acute (2) Altered mental status Status: Acute (3) Urinary tract infection Status: Acute (4) Multiple sclerosis Status: Acute
--- NOTE | 2017-10-23 08:06 | CARD ---
APPROVED REPORT EKG Measurement Heart [id number] <Conclusion> Sinus tachycardia Nonspecific ST and T wave abnormality Abnormal ECG
[2017-10-23 08:15] LABS: BASO % 0.7 % (0.0-2.0); EOS # 0.3 K/uL (0.0-0.7); EOS % 5.6 % (0.0-4.0); HEMOGLOBIN 12.3 g/dL (12.0-18.0); LYMPH # 1.7 K/uL (1.0-4.3); LYMPH % 30.3 % (20.0-40.0); MEAN CELL VOLUME 86.5 fL (80.0-94.0); MEAN CORPUSCULAR HGB CONC 33.5 g/dL (33.0-37.0); MEAN PLATELET VOLUME 9.5 fL (7.2-11.7); MONO # 0.5 K/uL (0.0-0.8); MONO % 8.9 % (0.0-10.0); NEUT % 54.5 % (50.0-75.0); RBC 4.24 Mil/uL (4.40-5.90); RED CELL DISTRIBUTION WIDTH 15.7 % (11.5-14.5); WHITE BLOOD COUNT 5.5 K/uL (4.8-10.8)
[2017-10-23 08:31] LABS: ALBUMIN 3.4 g/dL (3.5-5.0); ALT/SGPT 14 U/L (21-72); AST/SGOT 35 U/L (17-59); BLOOD UREA NITROGEN 15 mg/dL (9-20); CALCIUM 7.9 mg/dl (8.6-10.4); GFR AFRICAN-AMERICAN > 60; GFR NON-AFRICAN AMERICAN > 60
[2017-10-23] MEDS ORDERED: Potassium Chloride 20 mEq ER Tab PO ONE (10:00)
[2017-10-23] MEDS: Cefepime IV 2 gm in Dextrose 2 GM/100 ML BAG IVPB SCH ×2 (10:02→21:26)
[2017-10-23] MEDS: Ammonium Lactate 12% Lotion (225 g) TOP SCH (11:55)
--- NOTE | 2017-10-23 13:49 | CP.PCM.PN ---
Subjective - Date & Time of Evaluation Date of Evaluation: 10/23/17 Time of Evaluation: 13:49 - Subjective Subjective: CHIEF COMPLAINTS TODAY : MORE ALERT NO ACUTE DISTRESS ROS. HEENT : N. Resp : No cough, wheezing ,pleuritic CP ,or hemoptysis Cardio : No anginal CP, PND, orthopnea, palpitation GI : No abd.pain, n/v ,diarrhea or GI bleeding . DIRECTOR DENTAL SERVICES : No headache, vertigo, Musculoskel : No joint swelling , Derm : No rash Psych : Normal affect. Ext : No swelling ,calf pain PE. Pt. is alert awake in no distress. V.S As noted in the chart Head ,ear nose,throat and eyes : Normal. Neck : Supple with normal carotids. Lungs: Clear air entry. Heart : S1 & S2 normal with S4. No murmur. Abd : Soft non tender with normal bowel sounds. Neuro : ALL EXT MOTOR WEAKNESS Ext : No edema with intact pulses.Non tender calves Derm : No rashes or GRADE 2 L. GLUTEAL decubitus ulcer. LABS/RADIOLOGY: DU MULTI ORGANISM / URINE GRAM -VE >100,000 CITROBACTER ASSESSMENT/PLAN : IV AB LOCAL D ULCER CARE Objective - Vital Signs/Intake and Output Vital Signs (last 24 hours): Temp Pulse Resp BP Pulse Ox 97.9 F 66 20 112/73 97 10/23/17 07:56 10/23/17 07:56 10/23/17 07:56 10/23/17 07:56 10/23/17 07:56 Intake and Output: 10/23/17 10/23/17 11:59 23:59 Intake Total 120 Output Total 200 Balance -80 - Medications Medications: Current Medications Acetaminophen (Tylenol 325 Mg Supp) 975 mg DC ONCE PRN PRN Reason: Fever >100.4 F Last Admin: 10/21/17 09:55 Dose: 975 mg Baclofen (Lioresal) 20 mg PO QID [facility] Last Admin: 10/23/17 09:53 Dose: 20 mg Diazepam (Valium) 5 mg PO HS [facility] Last Admin: 10/22/17 21:57 Dose: 5 mg Famotidine (Pepcid) 20 mg PO DAILY [facility] Last Admin: 10/23/17 09:47 Dose: 20 mg Heparin Sodium (Porcine) (Heparin) 5,000 units SC Q12 [facility] Last Admin: 10/23/17 09:46 Dose: 5,000 units Cefepime HCl (Maxipime Iv 2 Gm Premix) 2 gm in 100 mls @ 200 mls/hr IVPB Q12H [facility] PRN Reason: Protocol Stop: 10/26/17 22:01 Last Admin: 10/23/17 10:02 Dose: 200 mls/hr Lactic Acid (Lac-Hydrin 12% Lotion (225 G)) 1 gm TOP DAILY [facility] Last Admin: 10/23/17 11:55 Dose: 1 applic Losartan Potassium (Cozaar) 50 mg PO DAILY [facility] Last Admin: 10/23/17 09:47 Dose: 50 mg Magnesium Hydroxide (Milk Of Magnesia) 30 ml PO HS [facility] Last Admin: 10/21/17 21:44 Dose: 30 ml Petrolatum (Desitin Original) 2 gm TOP TID [facility] Pneumococcal Polyvalent Vaccine (Pneumovax 23 Vaccine) 0.5 ml IM .ONCE ONE Stop: 10/24/17 10:01 - Labs Labs: 10/23/17 08:00 10/23/17 08:00 PT 13.8 SECONDS (9.7-12.2) H 10/21/17 10:14 INR 1.2 10/21/17 10:14 APTT 31 SECONDS (21-34) 10/21/17 10:14
[2017-10-23] MEDS: Zinc Oxide Topical 30 gm Tube TOP SCH ×2 (14:08→17:49)
[2017-10-23] MEDS: Magnesium Hydroxide Susp 30 ml UD PO SCH (21:36)
--- NOTE | 2017-10-23 23:05 | CP.PCM.PN ---
Subjective - Date & Time of Evaluation Date of Evaluation: 10/23/17 Time of Evaluation: 23:04 - Subjective Subjective: CHIEF COMPLAINTS TODAY : MORE ALERT STATES FEELING MUCH BETTER ROS. HEENT : N. Resp : No cough, wheezing ,pleuritic CP ,or hemoptysis Cardio : No anginal CP, PND, orthopnea, palpitation GI : No abd.pain, n/v ,diarrhea or GI bleeding . 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 Ext : No swelling ,calf pain PE. Pt. is alert awake in no distress. V.S As noted in the chart Head ,ear nose,throat and eyes : Normal. Neck : Supple with normal carotids. Lungs: Clear air entry. Heart : S1 & S2 normal with S4. No murmur. Abd : Soft non tender with normal bowel sounds. Neuro : ALL EXT MOTOR WEAKNESS Ext : No edema with intact pulses.Non tender calves Derm : No rashes or GRADE 2 L. GLUTEAL decubitus ulcer. LABS/RADIOLOGY: BLOOD CULTURES 10/21/17 -VE GROWTH FOR 48 HOURS. URINE CULTURE +VE>100,000CFU/ML -CITROBACTER DIVERGENCE S- MAXIPIME. DECUBITUS ULCER SKIN GNR/GPC-P IDENTIFICATION. ASSESSMENT/PLAN : ON iv MAXIPEME 2 G iv PIGGYBACK EVERY 12 HOURLY. 10/21/17. FOR BETTER GRAM-NEGATIVE ESBL E.COLI/kLEBSIELLA PNEUMONIAE COVERAGE. FOLLOW-UP CULTURES TO ADJUST ANTIBIOTICS. LOCAL DEC.-.ULCER CARE PER WOUND CARE. Objective - Vital Signs/Intake and Output Vital Signs (last 24 hours): Temp Pulse Resp BP Pulse Ox 98.3 F 62 20 109/71 96 10/23/17 16:23 10/23/17 16:23 10/23/17 16:23 10/23/17 16:23 10/23/17 16:23 Intake and Output: 10/23/17 10/24/17 18:59 06:59 Intake Total 720 300 Output Total 500 250 Balance 220 50 - Medications Medications: Current Medications Acetaminophen (Tylenol 325 Mg Supp) 975 mg ME ONCE PRN PRN Reason: Fever >100.4 F Last Admin: 10/21/17 09:55 Dose: 975 mg Baclofen (Lioresal) 20 mg PO QID [facility] Last Admin: 10/23/17 21:26 Dose: 20 mg Diazepam (Valium) 5 mg PO HS [facility] Last Admin: 10/23/17 21:26 Dose: 5 mg Famotidine (Pepcid) 20 mg PO DAILY [facility] Last Admin: 10/23/17 09:47 Dose: 20 mg Heparin Sodium (Porcine) (Heparin) 5,000 units SC Q12 [facility] Last Admin: 10/23/17 21:25 Dose: 5,000 units Cefepime HCl (Maxipime Iv 2 Gm Premix) 2 gm in 100 mls @ 200 mls/hr IVPB Q12H [facility] PRN Reason: Protocol Stop: 10/26/17 22:01 Last Admin: 10/23/17 21:26 Dose: 200 mls/hr Lactic Acid (Lac-Hydrin 12% Lotion (225 G)) 1 gm TOP DAILY [facility] Last Admin: 10/23/17 11:55 Dose: 1 applic Losartan Potassium (Cozaar) 50 mg PO DAILY [facility] Last Admin: 10/23/17 09:47 Dose: 50 mg Magnesium Hydroxide (Milk Of Magnesia) 30 ml PO HS [facility] Last Admin: 10/23/17 21:36 Dose: Not Given Petrolatum (Desitin Original) 2 gm TOP TID [facility] Last Admin: 10/23/17 17:49 Dose: 1 applic Pneumococcal Polyvalent Vaccine (Pneumovax 23 Vaccine) 0.5 ml IM .ONCE ONE Stop: 10/24/17 10:01 - Labs Labs: 10/23/17 08:00 10/23/17 08:00 PT 13.8 SECONDS (9.7-12.2) H 10/21/17 10:14 INR 1.2 10/21/17 10:14 APTT 31 SECONDS (21-34) 10/21/17 10:14 Assessment and Plan (1) Sepsis syndrome Status: Acute (2) Altered mental status Status: Acute (3) Urinary tract infection Status: Acute (4) Multiple sclerosis Status: Acute
[2017-10-24 08:44] LABS: BASO % 0.7 % (0.0-2.0); EOS # 0.3 K/uL (0.0-0.7); EOS % 6.2 % (0.0-4.0); HEMOGLOBIN 11.8 g/dL (12.0-18.0); LYMPH # 1.9 K/uL (1.0-4.3); LYMPH % 35.7 % (20.0-40.0); MEAN CELL VOLUME 86.6 fL (80.0-94.0); MEAN CORPUSCULAR HEMOGLOBIN 28.8 pg (27.0-31.0); MEAN CORPUSCULAR HGB CONC 33.2 g/dL (33.0-37.0); MEAN PLATELET VOLUME 9.5 fL (7.2-11.7); MONO # 0.4 K/uL (0.0-0.8); MONO % 6.9 % (0.0-10.0); NEUT # 2.6 K/uL (1.8-7.0); NEUT % 50.5 % (50.0-75.0); NRBC % 0.1 % (0.0-2.0); RBC 4.12 Mil/uL (4.40-5.90); RED CELL DISTRIBUTION WIDTH 15.5 % (11.5-14.5); WHITE BLOOD COUNT 5.2 K/uL (4.8-10.8)
[2017-10-24 09:03] LABS: ALBUMIN 3.3 g/dL (3.5-5.0); ALT/SGPT 13 U/L (21-72); AST/SGOT 24 U/L (17-59); BLOOD UREA NITROGEN 14 mg/dL (9-20); CALCIUM 7.7 mg/dl (8.6-10.4); GFR AFRICAN-AMERICAN > 60; GFR NON-AFRICAN AMERICAN > 60
[2017-10-24] MEDS ORDERED: Pneumococcal 23-Valent Vaccine IM ONE (10:00)
[2017-10-24] MEDS: Ammonium Lactate 12% Lotion (225 g) TOP SCH (10:30)
[2017-10-24] MEDS: Zinc Oxide Topical 30 gm Tube TOP SCH ×3 (10:30→18:52)
[2017-10-24] MEDS: Cefepime IV 2 gm in Dextrose 2 GM/100 ML BAG IVPB SCH ×2 (10:33→21:13)
--- NOTE | 2017-10-24 14:36 | CP.PCM.PN ---
Subjective - Date & Time of Evaluation Date of Evaluation: 10/24/17 Time of Evaluation: 14:35 - Subjective Subjective: CHIEF COMPLAINTS TODAY : MORE ALERT NO ACUTE DISTRESS ROS. HEENT : N. Resp : No cough, wheezing ,pleuritic CP ,or hemoptysis Cardio : No anginal CP, PND, orthopnea, palpitation GI : No abd.pain, n/v ,diarrhea or GI bleeding . 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 Ext : No swelling ,calf pain PE. Pt. is alert awake in no distress. V.S As noted in the chart Head ,ear nose,throat and eyes : Normal. Neck : Supple with normal carotids. Lungs: Clear air entry. Heart : S1 & S2 normal with S4. No murmur. Abd : Soft non tender with normal bowel sounds. Neuro : ALL EXT MOTOR WEAKNESS Ext : No edema with intact pulses.Non tender calves Derm : No rashes or GRADE 2 L. GLUTEAL decubitus ulcer. LABS/RADIOLOGY: DU MULTI ORGANISM / URINE GRAM -VE >100,000 CITROBACTER ASSESSMENT/PLAN : IV AB Objective - Vital Signs/Intake and Output Vital Signs (last 24 hours): Temp Pulse Resp BP Pulse Ox 97.7 F 72 20 135/80 96 10/24/17 08:00 10/24/17 08:00 10/24/17 08:00 10/24/17 08:00 10/24/17 08:00 Intake and Output: 10/24/17 10/24/17 11:59 23:59 Intake Total 200 Output Total 200 Balance 0 - Medications Medications: Current Medications Acetaminophen (Tylenol 325 Mg Supp) 975 mg [place] ONCE PRN PRN Reason: Fever >100.4 F Last Admin: 10/21/17 09:55 Dose: 975 mg Baclofen (Lioresal) 20 mg PO QID [facility] Last Admin: 10/24/17 14:04 Dose: 20 mg Diazepam (Valium) 5 mg PO HS [facility] Last Admin: 10/23/17 21:26 Dose: 5 mg Famotidine (Pepcid) 20 mg PO DAILY [facility] Last Admin: 10/24/17 10:29 Dose: 20 mg Heparin Sodium (Porcine) (Heparin) 5,000 units SC Q12 [facility] Last Admin: 10/24/17 10:29 Dose: 5,000 units Cefepime HCl (Maxipime Iv 2 Gm Premix) 2 gm in 100 mls @ 200 mls/hr IVPB Q12H [facility] PRN Reason: Protocol Stop: 10/26/17 22:01 Last Admin: 10/24/17 10:33 Dose: 200 mls/hr Lactic Acid (Lac-Hydrin 12% Lotion (225 G)) 1 gm TOP DAILY [facility] Last Admin: 10/24/17 10:30 Dose: 1 applic Losartan Potassium (Cozaar) 50 mg PO DAILY [facility] Last Admin: 10/24/17 10:29 Dose: 50 mg Magnesium Hydroxide (Milk Of Magnesia) 30 ml PO HS [facility] Last Admin: 10/23/17 21:36 Dose: Not Given Petrolatum (Desitin Original) 2 gm TOP TID [facility] Last Admin: 10/24/17 14:05 Dose: 1 applic - Labs Labs: 10/24/17 08:26 10/24/17 08:26 PT 13.8 SECONDS (9.7-12.2) H 10/21/17 10:14 INR 1.2 10/21/17 10:14 APTT 31 SECONDS (21-34) 10/21/17 10:14
[2017-10-24] MEDS ORDERED: Potassium Chloride 20 mEq ER Tab PO ONE (16:00)
[2017-10-24] MEDS: Magnesium Hydroxide Susp 30 ml UD PO SCH (21:21)
--- NOTE | 2017-10-24 23:48 | CP.PCM.PN ---
Subjective - Date & Time of Evaluation Date of Evaluation: 10/24/17 Time of Evaluation: 23:48 - Subjective Subjective: CHIEF COMPLAINTS TODAY : MORE ALERT STATES FEELING MUCH BETTER ROS. HEENT : N. Resp : No cough, wheezing ,pleuritic CP ,or hemoptysis Cardio : No anginal CP, PND, orthopnea, palpitation GI : No abd.pain, n/v ,diarrhea or GI bleeding . 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 Ext : No swelling ,calf pain PE. Pt. is alert awake in no distress. V.S As noted in the chart Head ,ear nose,throat and eyes : Normal. Neck : Supple with normal carotids. Lungs: Clear air entry. Heart : S1 & S2 normal with S4. No murmur. Abd : Soft non tender with normal bowel sounds. Neuro : ALL EXT MOTOR WEAKNESS Ext : No edema with intact pulses.Non tender calves Derm : No rashes or GRADE 2 L. GLUTEAL decubitus ulcer. LABS/RADIOLOGY: BLOOD CULTURES 10/21/17 -VE GROWTH FOR 48 HOURS. URINE CULTURE +VE>100,000CFU/ML -CITROBACTER DIVERGENCE S- MAXIPIME. DECUBITUS ULCER --POLYMICROBIAL - CONTAMINATED BY FEACAL SHEILA ASSESSMENT/PLAN : ON iv MAXIPEME 2 G iv PIGGYBACK EVERY 12 HOURLY. 10/21/17. FOR BETTER GRAM-NEGATIVE ESBL E.COLI/kLEBSIELLA PNEUMONIAE COVERAGE. LOCAL DEC.-.ULCER CARE PER WOUND CARE. CONTACT ISOLATION. Objective - Vital Signs/Intake and Output Vital Signs (last 24 hours): Temp Pulse Resp BP Pulse Ox 97.6 F 63 20 124/72 97 10/24/17 16:00 10/24/17 16:00 10/24/17 16:00 10/24/17 16:00 10/24/17 16:00 Intake and Output: 10/24/17 10/25/17 18:59 06:59 Intake Total 800 200 Output Total 500 251 Balance 300 -51 - Medications Medications: Current Medications Acetaminophen (Tylenol 325 Mg Supp) 975 mg [place] ONCE PRN PRN Reason: Fever >100.4 F Last Admin: 10/21/17 09:55 Dose: 975 mg Baclofen (Lioresal) 20 mg PO QID [facility] Last Admin: 10/24/17 21:13 Dose: 20 mg Diazepam (Valium) 5 mg PO HS [facility] Last Admin: 10/24/17 21:13 Dose: 5 mg Famotidine (Pepcid) 20 mg PO DAILY [facility] Last Admin: 10/24/17 10:29 Dose: 20 mg Heparin Sodium (Porcine) (Heparin) 5,000 units SC Q12 [facility] Last Admin: 10/24/17 21:13 Dose: 5,000 units Cefepime HCl (Maxipime Iv 2 Gm Premix) 2 gm in 100 mls @ 200 mls/hr IVPB Q12H [facility] PRN Reason: Protocol Stop: 10/26/17 22:01 Last Admin: 10/24/17 21:13 Dose: 200 mls/hr Lactic Acid (Lac-Hydrin 12% Lotion (225 G)) 1 gm TOP DAILY [facility] Last Admin: 10/24/17 10:30 Dose: 1 applic Losartan Potassium (Cozaar) 50 mg PO DAILY [facility] Last Admin: 10/24/17 10:29 Dose: 50 mg Magnesium Hydroxide (Milk Of Magnesia) 30 ml PO HS [facility] Last Admin: 10/24/17 21:21 Dose: Not Given Petrolatum (Desitin Original) 2 gm TOP TID [facility] Last Admin: 10/24/17 18:52 Dose: 1 applic - Labs Labs: 10/24/17 08:26 10/24/17 08:26 PT 13.8 SECONDS (9.7-12.2) H 10/21/17 10:14 INR 1.2 10/21/17 10:14 APTT 31 SECONDS (21-34) 10/21/17 10:14 Assessment and Plan (1) Sepsis syndrome Status: Acute (2) Altered mental status Status: Acute (3) Urinary tract infection Status: Acute (4) Multiple sclerosis Status: Acute
[2017-10-25 07:55] LABS: BASO % 0.9 % (0.0-2.0); EOS # 0.4 K/uL (0.0-0.7); EOS % 7.5 % (0.0-4.0); HEMOGLOBIN 12.3 g/dL (12.0-18.0); LYMPH % 39.7 % (20.0-40.0); MEAN CELL VOLUME 86.3 fL (80.0-94.0); MEAN CORPUSCULAR HEMOGLOBIN 29.3 pg (27.0-31.0); MEAN CORPUSCULAR HGB CONC 33.9 g/dL (33.0-37.0); MEAN PLATELET VOLUME 9.2 fL (7.2-11.7); MONO # 0.4 K/uL (0.0-0.8); MONO % 7.5 % (0.0-10.0); NEUT # 2.2 K/uL (1.8-7.0); NEUT % 44.4 % (50.0-75.0); RBC 4.22 Mil/uL (4.40-5.90)
[2017-10-25 08:18] LABS: ALBUMIN 3.3 g/dL (3.5-5.0); ALT/SGPT 19 U/L (21-72); AST/SGOT 20 U/L (17-59); BLOOD UREA NITROGEN 12 mg/dL (9-20); CALCIUM 7.9 mg/dl (8.6-10.4); GFR AFRICAN-AMERICAN > 60; GFR NON-AFRICAN AMERICAN > 60
[2017-10-25] MEDS: Zinc Oxide Topical 30 gm Tube TOP SCH ×3 (10:33→18:47)
[2017-10-25] MEDS: Ammonium Lactate 12% Lotion (225 g) TOP SCH (10:33)
[2017-10-25] MEDS: Cefepime IV 2 gm in Dextrose 2 GM/100 ML BAG IVPB SCH ×2 (10:35→21:33)
--- NOTE | 2017-10-25 15:17 | CP.PCM.PN ---
Subjective - Date & Time of Evaluation Date of Evaluation: 10/25/17 Time of Evaluation: 15:17 - Subjective Subjective: CHIEF COMPLAINTS TODAY : MORE ALERT NO ACUTE DISTRESS ROS. HEENT : N. Resp : No cough, wheezing ,pleuritic CP ,or hemoptysis Cardio : No anginal CP, PND, orthopnea, palpitation GI : No abd.pain, n/v ,diarrhea or GI bleeding . 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 Ext : No swelling ,calf pain PE. Pt. is alert awake in no distress. V.S As noted in the chart Head ,ear nose,throat and eyes : Normal. Neck : Supple with normal carotids. Lungs: Clear air entry. Heart : S1 & S2 normal with S4. No murmur. Abd : Soft non tender with normal bowel sounds. Neuro : ALL EXT MOTOR WEAKNESS Ext : No edema with intact pulses.Non tender calves Derm : No rashes or GRADE 2 L. GLUTEAL decubitus ulcer. LABS/RADIOLOGY: DU MULTI ORGANISM / URINE GRAM -VE >100,000 CITROBACTER ASSESSMENT/PLAN : IV AB Objective - Vital Signs/Intake and Output Vital Signs (last 24 hours): Temp Pulse Resp BP Pulse Ox 98.3 F 66 20 120/80 98 10/25/17 08:00 10/25/17 08:00 10/25/17 08:00 10/25/17 08:00 10/25/17 08:00 Intake and Output: 10/25/17 10/25/17 11:59 23:59 Output Total 200 Balance -200 - Medications Medications: Current Medications Acetaminophen (Tylenol 325 Mg Supp) 975 mg [place] ONCE PRN PRN Reason: Fever >100.4 F Last Admin: 10/21/17 09:55 Dose: 975 mg Baclofen (Lioresal) 20 mg PO QID [facility] Last Admin: 10/25/17 15:14 Dose: 20 mg Diazepam (Valium) 5 mg PO HS [facility] Last Admin: 10/24/17 21:13 Dose: 5 mg Famotidine (Pepcid) 20 mg PO DAILY [facility] Last Admin: 10/25/17 10:31 Dose: 20 mg Cefepime HCl (Maxipime Iv 2 Gm Premix) 2 gm in 100 mls @ 200 mls/hr IVPB Q12H [facility] PRN Reason: Protocol Stop: 10/26/17 22:01 Last Admin: 10/25/17 10:35 Dose: 200 mls/hr Lactic Acid (Lac-Hydrin 12% Lotion (225 G)) 1 gm TOP DAILY [facility] Last Admin: 10/25/17 10:33 Dose: 1 applic Losartan Potassium (Cozaar) 50 mg PO DAILY [facility] Last Admin: 10/25/17 10:31 Dose: 50 mg Magnesium Hydroxide (Milk Of Magnesia) 30 ml PO HS [facility] Last Admin: 10/24/17 21:21 Dose: Not Given Petrolatum (Desitin Original) 2 gm TOP TID [facility] Last Admin: 10/25/17 15:15 Dose: 1 applic - Labs Labs: 10/25/17 07:40 10/25/17 07:40 PT 13.8 SECONDS (9.7-12.2) H 10/21/17 10:14 INR 1.2 10/21/17 10:14 APTT 31 SECONDS (21-34) 10/21/17 10:14
[2017-10-25] MEDS: Magnesium Hydroxide Susp 30 ml UD PO SCH (21:34)
[2017-10-26 07:21] LABS: BASO # 0.1 K/uL (0.0-0.2); BASO % 1.1 % (0.0-2.0); EOS # 0.4 K/uL (0.0-0.7); EOS % 7.7 % (0.0-4.0); HEMOGLOBIN 11.7 g/dL (12.0-18.0); LYMPH # 1.8 K/uL (1.0-4.3); LYMPH % 35.7 % (20.0-40.0); MEAN CELL VOLUME 86.4 fL (80.0-94.0); MEAN CORPUSCULAR HEMOGLOBIN 29.1 pg (27.0-31.0); MEAN CORPUSCULAR HGB CONC 33.7 g/dL (33.0-37.0); MEAN PLATELET VOLUME 9.3 fL (7.2-11.7); MONO # 0.3 K/uL (0.0-0.8); MONO % 6.7 % (0.0-10.0); NEUT # 2.4 K/uL (1.8-7.0); NEUT % 48.8 % (50.0-75.0); NRBC % 0.1 % (0.0-2.0); RBC 4.04 Mil/uL (4.40-5.90); RED CELL DISTRIBUTION WIDTH 15.6 % (11.5-14.5)
[2017-10-26 07:58] LABS: ALBUMIN 3.3 g/dL (3.5-5.0); ALT/SGPT 15 U/L (21-72); AST/SGOT 22 U/L (17-59); BLOOD UREA NITROGEN 12 mg/dL (9-20); GFR AFRICAN-AMERICAN > 60; GFR NON-AFRICAN AMERICAN > 60
[2017-10-26] MEDS: Cefepime IV 2 gm in Dextrose 2 GM/100 ML BAG IVPB SCH (10:36)
[2017-10-26] MEDS: Ammonium Lactate 12% Lotion (225 g) TOP SCH (10:37)
[2017-10-26] MEDS: Zinc Oxide Topical 30 gm Tube TOP SCH ×2 (10:37→14:07)
--- NOTE | 2017-10-26 11:51 | CP.PCM.PN ---
Subjective - Date & Time of Evaluation Date of Evaluation: 10/26/17 Time of Evaluation: 11:51 - Subjective Subjective: CHIEF COMPLAINTS TODAY : MORE ALERT feeling good ROS. HEENT : N. Resp : No cough, wheezing ,pleuritic CP ,or hemoptysis Cardio : No anginal CP, PND, orthopnea, palpitation GI : No abd.pain, n/v ,diarrhea or GI bleeding . 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 Ext : No swelling ,calf pain PE. Pt. is alert awake in no distress. V.S As noted in the chart Head ,ear nose,throat and eyes : Normal. Neck : Supple with normal carotids. Lungs: Clear air entry. Heart : S1 & S2 normal with S4. No murmur. Abd : Soft non tender with normal bowel sounds. Neuro : ALL EXT MOTOR WEAKNESS Ext : No edema with intact pulses.Non tender calves Derm : No rashes or GRADE 2 L. GLUTEAL decubitus ulcer. LABS/RADIOLOGY: BLOOD CULTURES 10/21/17 -VE GROWTH FOR 48 HOURS. URINE CULTURE +VE>100,000CFU/ML -CITROBACTER DIVERGENCE S- MAXIPIME. DECUBITUS ULCER --POLYMICROBIAL - CONTAMINATED BY FEACAL SHEILA ASSESSMENT/PLAN : dc iv MAXIPEME 2 G iv PIGGYBACK EVERY 12 HOURLY. 10/21/17. start po CIPRO 750MG PO BID X 10DAYS. F/U RENAL FUNCTION CLOSELY. LOCAL DEC.-.ULCER CARE . PER WOUND CARE. CONTACT ISOLATION. Objective - Vital Signs/Intake and Output Vital Signs (last 24 hours): Temp Pulse Resp BP Pulse Ox 98.3 F 62 20 118/73 96 10/26/17 01:15 10/26/17 01:15 10/26/17 01:15 10/26/17 01:15 10/26/17 01:15 Intake and Output: 10/26/17 10/26/17 06:59 18:59 Intake Total 470 Output Total 851 Balance -381 - Medications Medications: Current Medications Acetaminophen (Tylenol 325 Mg Supp) 975 mg [place] ONCE PRN PRN Reason: Fever >100.4 F Last Admin: 10/21/17 09:55 Dose: 975 mg Baclofen (Lioresal) 20 mg PO QID [facility] Last Admin: 10/26/17 10:36 Dose: 20 mg Diazepam (Valium) 5 mg PO HS [facility] Last Admin: 10/25/17 21:34 Dose: 5 mg Famotidine (Pepcid) 20 mg PO DAILY [facility] Last Admin: 10/26/17 10:36 Dose: 20 mg Cefepime HCl (Maxipime Iv 2 Gm Premix) 2 gm in 100 mls @ 200 mls/hr IVPB Q12H [facility] PRN Reason: Protocol Stop: 10/26/17 22:01 Last Admin: 10/26/17 10:36 Dose: 200 mls/hr Lactic Acid (Lac-Hydrin 12% Lotion (225 G)) 1 gm TOP DAILY [facility] Last Admin: 10/26/17 10:37 Dose: 1 applic Losartan Potassium (Cozaar) 50 mg PO DAILY [facility] Last Admin: 10/26/17 10:36 Dose: 50 mg Magnesium Hydroxide (Milk Of Magnesia) 30 ml PO HS [facility] Last Admin: 10/25/17 21:34 Dose: Not Given Petrolatum (Desitin Original) 2 gm TOP TID [facility] Last Admin: 10/26/17 10:37 Dose: 1 applic - Labs Labs: 10/26/17 06:56 10/26/17 06:56 PT 13.8 SECONDS (9.7-12.2) H 10/21/17 10:14 INR 1.2 10/21/17 10:14 APTT 31 SECONDS (21-34) 10/21/17 10:14 Assessment and Plan (1) Sepsis syndrome Status: Acute (2) Altered mental status Status: Acute (3) Urinary tract infection Status: Acute (4) Multiple sclerosis Status: Acute
--- NOTE | 2017-10-26 12:49 | CP.PCM.PN ---
Subjective - Date & Time of Evaluation Date of Evaluation: 10/26/17 Time of Evaluation: 12:41 - Subjective Subjective: -PLACE UNDER THE SERVICE OF DR. UNDERWOOD WHILE AT [facility]---CALL UPON ARRIVAL TO FACILITY FOR FURTHER ADMITTING ORDERS. -CONTINUE MEDICATIONS PER THE MED REC FORM---CHANGES CAN BE MADE BY DR. UNDERWOOD. -CONTINUE ANTIBIOTICS FOLLOWS: CIPRO 750 MG PO BID X10 DAYS (START 10/27/17 AND LAST DOSE TO BE GIVEN DURING THE EVENING OF 11/06/17). -WOUND CARE ORDERS FOR SACRAL DECUBITUS: Recommending to start aloevesta protective ointment to be placed on entire sacral region and to both gluteal folds 3x/day as a protective measure, and must be repositioned frequently using wedge to optimize offloading. Recommended prevalon boots for both heels. -FACILITY WOUND CARE TEAM TO EVALUATE UPON ARRIVAL FOR FURTHER RECOMMENDATIONS. -FOR FURTHER ORDERS OR QUESTIONS, CONTACT DR. UNDERWOOD'S OFFICE. Objective - Vital Signs/Intake and Output Vital Signs (last 24 hours): Temp Pulse Resp BP Pulse Ox 98.3 F 62 20 118/73 96 10/26/17 01:15 10/26/17 01:15 10/26/17 01:15 10/26/17 01:15 10/26/17 01:15 Intake and Output: 10/26/17 10/26/17 06:59 18:59 Intake Total 470 Output Total 851 Balance -381 - Medications Medications: Current Medications Acetaminophen (Tylenol 325 Mg Supp) 975 mg [place] ONCE PRN PRN Reason: Fever >100.4 F Last Admin: 10/21/17 09:55 Dose: 975 mg Baclofen (Lioresal) 20 mg PO QID [facility] Last Admin: 10/26/17 10:36 Dose: 20 mg Diazepam (Valium) 5 mg PO HS [facility] Last Admin: 10/25/17 21:34 Dose: 5 mg Famotidine (Pepcid) 20 mg PO DAILY [facility] Last Admin: 10/26/17 10:36 Dose: 20 mg Cefepime HCl (Maxipime Iv 2 Gm Premix) 2 gm in 100 mls @ 200 mls/hr IVPB Q12H [facility] PRN Reason: Protocol Stop: 10/26/17 22:01 Last Admin: 10/26/17 10:36 Dose: 200 mls/hr Lactic Acid (Lac-Hydrin 12% Lotion (225 G)) 1 gm TOP DAILY [facility] Last Admin: 10/26/17 10:37 Dose: 1 applic Losartan Potassium (Cozaar) 50 mg PO DAILY [facility] Last Admin: 10/26/17 10:36 Dose: 50 mg Magnesium Hydroxide (Milk Of Magnesia) 30 ml PO HS [facility] Last Admin: 10/25/17 21:34 Dose: Not Given Petrolatum (Desitin Original) 2 gm TOP TID [facility] Last Admin: 10/26/17 10:37 Dose: 1 applic - Labs Labs: 10/26/17 06:56 10/26/17 06:56 PT 13.8 SECONDS (9.7-12.2) H 10/21/17 10:14 INR 1.2 10/21/17 10:14 APTT 31 SECONDS (21-34) 10/21/17 10:14
[2017-10-26 13:25] LABS: URINE BACTERIA RARE (<OCC); URINE BILIRUBIN NEGATIVE (NEGATIVE); URINE BLOOD 2+ (NEGATIVE); URINE CLARITY Hazy (Clear); URINE COLOR Yellow (YELLOW); URINE GLUCOSE (UA) NORMAL (Normal); URINE LEUKOCYTE ESTERASE 2+ Leu/uL (Negative); URINE PROTEIN 1+ mg/dL (NEGATIVE); URINE UROBILINOGEN NORMAL mg/dL (0.2-1.0)
--- NOTE | 2017-10-26 13:55 | CP.PCM.PN ---
Subjective - Date & Time of Evaluation Date of Evaluation: 10/26/17 Time of Evaluation: 13:52 - Subjective Subjective: PT TRANSFERRED FROM [place] AFTER PT FOUNG TO HAVE CHANGE OF MENTAL STATUS AND TEMP OF 101F . EVALUATED IN ER, SHOWED URO SEPSIS . PT HAS PH OF MS IN [place] , BED BOUND WITH NO POWER L EXT AND UPPER EXT HTN URINE C/S POS , CITROBACT AND ID ADJUSTED IV AB WOUND C/S SHOWED MULTIPLE ORGANISM PT IMPROVED CLINICALLY AND NOW TRANSFERRED TO [facility] ON PO CIPRO Objective - Vital Signs/Intake and Output Vital Signs (last 24 hours): Temp Pulse Resp BP Pulse Ox 98.3 F 62 20 118/73 96 10/26/17 01:15 10/26/17 01:15 10/26/17 01:15 10/26/17 01:15 10/26/17 01:15 Intake and Output: 10/26/17 10/26/17 11:59 23:59 Intake Total 120 Output Total 250 Balance -130 - Medications Medications: Current Medications Acetaminophen (Tylenol 325 Mg Supp) 975 mg [place] ONCE PRN PRN Reason: Fever >100.4 F Last Admin: 10/21/17 09:55 Dose: 975 mg Artificial Tears (Artificial Tears) 1 ml OD QID [facility] Baclofen (Lioresal) 20 mg PO QID [facility] Last Admin: 10/26/17 10:36 Dose: 20 mg Diazepam (Valium) 5 mg PO HS [facility] Last Admin: 10/25/17 21:34 Dose: 5 mg Famotidine (Pepcid) 20 mg PO DAILY [facility] Last Admin: 10/26/17 10:36 Dose: 20 mg Cefepime HCl (Maxipime Iv 2 Gm Premix) 2 gm in 100 mls @ 200 mls/hr IVPB Q12H [facility] PRN Reason: Protocol Stop: 10/26/17 22:01 Last Admin: 10/26/17 10:36 Dose: 200 mls/hr Lactic Acid (Lac-Hydrin 12% Lotion (225 G)) 1 gm TOP DAILY [facility] Last Admin: 10/26/17 10:37 Dose: 1 applic Losartan Potassium (Cozaar) 50 mg PO DAILY [facility] Last Admin: 10/26/17 10:36 Dose: 50 mg Magnesium Hydroxide (Milk Of Magnesia) 30 ml PO HS [facility] Last Admin: 10/25/17 21:34 Dose: Not Given Petrolatum (Desitin Original) 2 gm TOP TID [facility] Last Admin: 10/26/17 10:37 Dose: 1 applic - Labs Labs: 10/26/17 06:56 10/26/17 06:56 PT 13.8 SECONDS (9.7-12.2) H 10/21/17 10:14 INR 1.2 10/21/17 10:14 APTT 31 SECONDS (21-34) 10/21/17 10:14
[2017-10-26] MEDS ORDERED: Aritificial Tears (15ml) OD SCH (14:00)
[2017-10-26] MEDS ORDERED: Potassium Chloride 20 mEq ER Tab PO ONE (15:39)
[2017-10-26 16:10] VITALS: BP 126/80; PULSE 60; TEMP 97.8; O2SAT 97
== END 2017-10-26 17:24 | DRG 872 ==
LOC: C.ER 09:45 → C.9E 14:03 → C.3T 15:09
PROVIDERS: ADMIT Internal Medicine Cardiovascular Disease; ATTEND Internal Medicine Cardiovascular Disease
DX: A41.9 Sepsis, unspecified organism (principal); N39.0 Urinary tract infection, site not specified; G35 Multiple sclerosis; I10 Essential (primary) hypertension; K21.9 Gastro-esophageal reflux disease without esophagitis; Z74.01 Bed confinement status; L89.159 Pressure ulcer of sacral region, unspecified stage; L89.322 Pressure ulcer of left buttock, stage 2

== ENCOUNTER 2018-11-08 16:44 | Inpatient (IN) | payer MEDICARE, MEDICAID ==
[2018-11-08 16:45] VITALS: BMI 25.7
--- NOTE | 2018-11-08 17:00 | C.PDOC ---
History Of Present Illness 63 y/o male presents to the ED, referred by PMD from half-way for evaluation of sacral ulcer, +MRSA. Patient reports ulcer has been present for 3 weeks. He complains of worsening pain with local pressure. No fever, chills, or other associated symptoms. Patient has history of chronic weakness to his right arm and bilateral legs. Patient is poor historian. He is a half-way resident with history of multiple sclerosis, anemia, GERD, hypertension. Records reviewed, patient was recently discharged for urosepsis. Time Seen by Provider: 11/08/18 16:58 Chief Complaint (Nursing): Abnormal Skin Integrity History Per: Collections Analyst History/Exam Limitations: no limitations Onset/Duration Of Symptoms: Days Current Symptoms Are (Timing): Still Present Past Medical History Reviewed: Historical Data, Nursing Documentation, Vital Signs - Medical History PMH: Anemia, GERD, HTN, Multiple Sclerosis, Seizures Denies: Alzheimer's Disease, Asthma, Atrial Fibrillation, Bronchitis, Cardia Arrhythmia, CHF, COPD, Dementia, Emphysema, HIV, Hypercholesterolemia, Hyperthyroidism, Hypothyroidism, Kidney Stones, Migraine, Mitral Valve Prolapse, Parkinson's Disease, Peripheral Edema, Pneumonia, Pulmonary Embolism, Chronic Kidney Disease, Sleep Apnea, TIA Surgical History: Denies: Pacemaker - [facility] Procedures INFUSION OF IMMUNOSUPPRESSIVE ANTIBODY THERAPY (05/01/14) INJECT CA CHEMOTHER NEC (02/03/14) INJECT/INFUSE NEC (05/19/13) Family History: States: Unknown Family Hx - Social History Hx Tobacco Use: No Hx Alcohol Use: No Hx Substance Use: No - Immunization History Hx Tetanus Toxoid Vaccination: No Hx Influenza Vaccination: Yes Hx Pneumococcal Vaccination: Yes Review Of Systems Constitutional: Negative for: Fever, Chills Respiratory: Negative for: Cough, Shortness of Breath Gastrointestinal: Negative for: Vomiting, Diarrhea Skin: Positive for: Lesions (+sacral ulcer) Neurological: Positive for: Weakness (chronic paresis to extremities) Physical Exam - Physical Exam Appears: Non-toxic, No Acute Distress Skin: Warm, Other (Pressure ulcer to sacrum with fresh dressing in place) Head: Atraumatic, Normacephalic Eye(s): bilateral: Normal Inspection, PERRL, EOMI Neck: Normal ROM Chest: Symmetrical Cardiovascular: Rhythm Regular, No Murmur Respiratory: Normal Breath Sounds, No Rales, No Rhonchi, No Wheezing, Other (NARD) Gastrointestinal/Abdominal: Soft, No Tenderness, No Distention Extremity: Bilateral: Atraumatic, Other (Chronic paresis to RUE and B/L LE) Pulses: Left Radial: Normal, Right Radial: Normal Neurological/Psych: Oriented x3, Normal Speech ED Course And Treatment - Laboratory Results Result Diagrams: 11/08/18 17:43 11/08/18 17:43 ECG: Interpreted By Me ECG Rhythm: Sinus Rhythm ECG Interpretation: Normal Rate From EC O2 Sat by Pulse Oximetry: 98 (on RA) Pulse Ox Interpretation: Normal - Radiology CXR: Interpreted by Me CXR Interpretation: Yes: No Acute Disease Progress - Re-Evaluation Re-evaluation Note: 11/08/18 17:34 d/w dr guzman WILL ADMIT. CONSULT DR TRINIDAD - Data Reviewed Data Reviewed: Lab, Diagnostic imaging, EKG, Old records Medical Decision Making Medical Decision Making: Initial Plan: - EKG - Labs - chest x-ray Disposition Counseled Patient/Family Regarding: Studies Performed, Diagnosis - Disposition Disposition: HOSPITALIZED Disposition Time: 17:36 Condition: STABLE - POA Present On Arrival: Pressure Ulcer - Clinical Impression Clinical Impression: MRSA (methicillin resistant staph aureus) culture positive, Sacral decubitus ulcer - Scribe Statement The provider has reviewed the documentation as recorded by the Agusto Suárze Provider Attestation: All medical record entries made by the Agusto were at my direction and personally dictated by me. I have reviewed the chart and agree that the record accurately reflects my personal performance of the history, physical exam, medical decision making, and the department course for this patient. I have also personally directed, reviewed, and agree with the discharge instructions and disposition.
[2018-11-08 17:48] LABS: BASO # 0.1 K/uL (0.0-0.2); BASO % 0.9 % (0.0-2.0); EOS # 0.3 K/uL (0.0-0.7); EOS % 3.4 % (0.0-4.0); HEMOGLOBIN 12.9 g/dL (12.0-18.0); LYMPH # 2.5 K/uL (1.0-4.3); LYMPH % 32.3 % (20.0-40.0); MEAN CELL VOLUME 86.7 fL (80.0-94.0); MEAN CORPUSCULAR HEMOGLOBIN 27.8 pg (27.0-31.0); MEAN PLATELET VOLUME 9.3 fL (7.2-11.7); MONO # 0.6 K/uL (0.0-0.8); MONO % 7.6 % (0.0-10.0); NEUT # 4.3 K/uL (1.8-7.0); NEUT % 55.8 % (50.0-75.0); RBC 4.64 Mil/uL (4.40-5.90); RED CELL DISTRIBUTION WIDTH 15.1 % (11.5-14.5)
[2018-11-08 17:58] LABS: WHITE BLOOD COUNT 7.8 K/uL (4.8-10.8)
[2018-11-08 18:11] LABS: ALB/GLOB RATIO 1.1 (1.0-2.1); ALBUMIN 3.7 g/dL (3.5-5.0); BLOOD UREA NITROGEN 15 mg/dL (9-20); GFR NON-AFRICAN AMERICAN > 60
[2018-11-08 18:12] LABS: ALT/SGPT < 6 U/L (21-72); AST/SGOT 33 U/L (17-59)
--- NOTE | 2018-11-08 18:50 | RAD ---
Date of service: 11/08/2018 PROCEDURE: CHEST RADIOGRAPH, 1 VIEW HISTORY: MED CLEAR COMPARISON: 10/21/2017. FINDINGS: LUNGS: Clear. PLEURA: No pneumothorax or pleural fluid seen. CARDIOVASCULAR: No aortic atherosclerotic calcification present. Normal. OSSEOUS STRUCTURES: No significant abnormalities. VISUALIZED UPPER ABDOMEN: Normal. OTHER FINDINGS: None. IMPRESSION: No active disease. No acute/significant interval changes.
--- NOTE | 2018-11-08 19:18 | CP.PCM.HP ---
History of Present Illness - History of Present Illness History of Present Illness: PT. WAS BEING TREATED IN [place] BY WOUND CARE MD FOR DECUBITUS ULCER WITHOUT ANY IMPROVEMENT. THE ULCER HAS BECOME UNSTAGEABLE AND EXTENDING TO BONE . THERE FAILED ATTEMPTS FOR DEBRIDEMENT IN [place] PT IS OVER WT AND HAS MS , BED RIDDEN WITH NO POWER IN LOWER AND NOW UPPER EXT PT HAS ANXIETY /HTN AND HAS BEEN TREATED IN [place]ST FOR UTI PT WAS TRANSFERRED TO FOR DEBRIDEMENT IN [place] AND IV AB C/S OF WOUND IN [place] SHOWED MRSA AND PEUDOMONAS Present on Admission - Present on Admission Any Indicators Present on Admission: Yes History of DVT/PE: No History of Uncontrolled Diabetes: No Urinary Catheter: No Decubitus Ulcer Present: Yes (EXTENSIVE ) Decubitus Ulcer Location: SACRUM/L GLUTEAL Decubitus Ulcer Stage: Unstageable Review of Systems - Review of Systems All systems: reviewed and no additional remarkable complaints except - Constitutional Constitutional: absent: As Per HPI, Anorexia, Chills, Daytime Sleepiness, Excessive Sweating, Fatigue, Fever, Frequent Falls, Headache, Increased Appetite, Lethargy, Malaise, Night Sweats, Snoring, Sleep Apnea, Weight Gain, Weight Loss, Weakness, Other - EENT Eyes: absent: As Per HPI, Blind Spots, Blurred Vision, Change in Vision, Decreased Night Vision, Diplopia, Discharge, Dry Eye, Exophthalmos, Floaters, Irritation, Itchy Eyes, Loss of Peripheral Vision, Pain, Photophobia, Requires Corrective Lenses, Sees Flashes, Spots in Vision, Tunnel Vision, Other Visual Disturbances, Loss of Vision, Other Nose/Mouth/Throat: absent: As Per HPI, Epistaxis, Nasal Congestion, Nasal Discharge, Nasal Obstruction, Nasal Trauma, Nose Pain, Post Nasal Drip, Sinus Pain, Sinus Pressure, Bleeding Gums, Change in Voice, Dental Pain, Dry Mouth, Dysphagia, Halitosis, Hoarsness, Lip Swelling, Mouth Lesions, Mouth Pain, Odynophagia, Sore Throat, Throat Swelling, Tongue Swelling, Facial Pain, Neck Pain, Neck Mass, Other - Cardiovascular Cardiovascular: absent: As Per HPI, Acrocyanosis, Chest Pain, Chest Pain at Rest, Chest Pain with Activity, Claudication, Diaphoresis, Dyspnea, Dyspnea on Exertion, Edema, Irregular Heart Rhythm, Pain Radiating to Arm/Neck/Jaw, Leg Edema, Leg Ulcers, Lightheadedness, Orthopnea, Palpitations, Paroxysmal Nocturnal Dyspnea, Pedal Edema, Radiating Pain, Rapid Heart Rate, Slow Heart Rate, Syncope, Other - Respiratory Respiratory: absent: As Per HPI, Cough, Dyspnea, Hemoptysis, Dyspnea on Exertion, Wheezing, Snoring, Stridor, Pain on Inspiration, Chest Congestion, Excessive Mucous Production, Change in Mucous Color, Pain with Coughing, Other - Gastrointestinal Gastrointestinal: absent: As Per HPI, Abdominal Pain, Belching, Bloating, Change in Bowel Habits, Change in Stool Character, Coffee Ground Emesis, Constipation, Cramping, Diarrhea, Dyspepsia, Dysphagia, Early Satiety, Excessive Flatus, Fecal Incontinence, Heartburn, Hematemesis, Hematochezia, Loose Stools, Melena, Nausea, Odynophagia, Temesmus, Vomiting, Other - Musculoskeletal Musculoskeletal: Muscle Weakness (NO PWER BOTH L EXT ) - Integumentary Integumentary: Non-Healing Lesions, Skin Ulcer, Sores - Neurological Neurological: Memory Loss, Weakness Past Patient History - Infectious Disease Hx of Infectious Diseases: MRSA - Past Medical History & Family History Past Medical History?: Yes - Past Social History Smoking Status: Unknown If Ever Smoked - CARDIAC Hx Atrial Fibrillation: No Hx Cardia Arrhythmia: No Hx Congestive Heart Failure: No Hx Hypercholesterolemia: No Hx Hypertension: Yes Hx Mitral Valve Prolapse: No Hx Pacemaker: No Hx Peripheral Edema: No - PULMONARY Hx Asthma: No Hx Bronchitis: No Hx Chronic Obstructive Pulmonary Disease (COPD): No Hx Emphysema: No Hx Pneumonia: No Hx Pulmonary Embolism: No Hx Sleep Apnea: No - NEUROLOGICAL Hx Alzheimer's Disease: No Hx Dementia: No Hx Migraine: No Hx Multiple Sclerosis: Yes Hx Parkinson's Disease: No Hx Seizures: Yes Hx Transient Ischemic Attacks (TIA): No - HEENT Hx HEENT Problems: No Hx Blind: No Hx Cataracts: No Hx Deafness: No Hx Difficulty Chewing: No Hx Epistaxis: No Hx Glaucoma: No Hx Macular Degeneration: No - RENAL Hx Chronic Kidney Disease: No Hx Kidney Stones: No - ENDOCRINE/METABOLIC Hx Hyperthyroidism: No Hx Hypothyroidism: No - HEMATOLOGICAL/ONCOLOGICAL Hx Anemia: Yes Hx Human Immunodeficiency Virus (HIV): No - INTEGUMENTARY Hx Dermatological Problems: Yes Other/Comment: left buttocks pressure ulcer, two open areas - MUSCULOSKELETAL/RHEUMATOLOGICAL Hx Falls: No - GASTROINTESTINAL Hx Gastrointestinal Disorders: Yes Hx Gastroesophageal Reflux: Yes - GENITOURINARY/GYNECOLOGICAL Hx Genitourinary Disorders: No - PSYCHIATRIC Hx Substance Use: No - ANESTHESIA Hx Anesthesia: No (unable to obtain info from patient) Meds Allergies/Adverse Reactions: Allergies Allergy/AdvReac Type Severity Reaction Status Date / Time No Known Allergies Allergy Verified 10/21/17 09:48 Physical Exam - Constitutional Appears: Well - Head Exam Head Exam: ATRAUMATIC, NORMAL INSPECTION, NORMOCEPHALIC - Eye Exam Pupil Exam: NORMAL ACCOMODATION, PERRL - ENT Exam ENT Exam: Mucous Membranes Moist, Normal Exam - Neck Exam Neck exam: Positive for: Normal Inspection - Respiratory Exam Respiratory Exam: Clear to Auscultation Bilateral, NORMAL BREATHING PATTERN - Cardiovascular Exam Cardiovascular Exam: REGULAR RHYTHM - GI/Abdominal Exam GI & Abdominal Exam: Normal Bowel Sounds, Soft. absent: Tenderness - Neurological Exam Neurological exam: Alert, Altered, CN II-XII Intact (NO PWER BOTH EXT , UPPER EXT 3/5) - Psychiatric Exam Psychiatric exam: Depressed, Flat Affect (UNSTAGEABLE DEC. ULCER ) Results - Vital Signs Recent Vital Signs: Last Vital Signs Temp 98.6 F 11/08/18 17:04 Pulse 8 L 11/08/18 17:04 Resp 86 H 11/08/18 17:04 BP 124/80 11/08/18 17:04 Pulse Ox 98 11/08/18 18:42 - Labs Result Diagrams: 11/11/18 06:56 11/11/18 06:56 Labs: Laboratory Results - last 24 hr 11/08/18 11/08/18 17:43 17:43 WBC 7.8 D RBC 4.64 Hgb 12.9 Hct 40.2 MCV 86.7 MCH 27.8 MCHC 32.0 L RDW 15.1 H Plt Count 292 D MPV 9.3 Neut % (Auto) 55.8 Lymph % (Auto) 32.3 [place] % (Auto) 7.6 Eos % (Auto) 3.4 Baso % (Auto) 0.9 Neut # (Auto) 4.3 Lymph # (Auto) 2.5 [place] # (Auto) 0.6 Eos # (Auto) 0.3 Baso # (Auto) 0.1 Sodium 136 Potassium 4.0 Chloride 98 Carbon Dioxide 29 Anion Gap 13 BUN 15 Creatinine 0.6 L Est GFR ( Amer) > 60 Est GFR (Non-Af Amer) > 60 Random Glucose 122 H D Calcium 8.0 L Total Bilirubin 0.5 AST 33 ALT < 6 L D Alkaline Phosphatase 49 Total Protein 7.2 Albumin 3.7 Globulin 3.5 Albumin/Globulin Ratio 1.1 Assessment & Plan (1) MRSA (methicillin resistant staph aureus) culture positive Status: Acute Comment: IV AB PER ID (2) Sacral decubitus ulcer Status: Acute Comment: WILL NEED OR FOR DEBRIDEMENT (3) Multiple sclerosis Status: Acute
[2018-11-08] MEDS ORDERED: Magnesium Hydroxide Susp 30 ml UD PO PRN (19:47)
--- NOTE | 2018-11-08 22:44 | CP.PCM.CON ---
History of Present Illness - History of Present Illness History of Present Illness: INFECTIOUS DISEASE CONSULT; HPI: 63 y/o male presents to the ED, referred by PMD from skilled nursing for evaluation of sacral ulcer, +MRSA. Patient reports ulcer has been present for 3 weeks. He complains of worsening pain with local pressure. No fever, chills, or other associated symptoms. Patient has history of chronic weakness to his right arm and bilateral legs. Patient is poor historian. He is a skilled nursing resident with history of multiple sclerosis, anemia, GERD, hypertension. Records reviewed, patient was recently discharged for urosepsis. PMH: Anemia, GERD, HTN, Multiple Sclerosis, Seizures Denies: Alzheimer's Disease, Asthma, Atrial Fibrillation, Bronchitis, Cardia Arrhythmia, CHF, COPD, Dementia, Emphysema, HIV, Hypercholesterolemia, Hyperthyroidism, Hypothyroidism, Kidney Stones, Migraine, Mitral Valve Prolapse, Parkinson's Disease, Peripheral Edema, Pneumonia, Pulmonary Embolism, Chronic Kidney Disease, Sleep Apnea, TIA Surgical History: Denies: Pacemaker - [facility] Procedures INFUSION OF IMMUNOSUPPRESSIVE ANTIBODY THERAPY (05/01/14) INJECT CA CHEMOTHER NEC (02/03/14) INJECT/INFUSE NEC (05/19/13) Family History: States: Unknown Family Hx - Social History Hx Tobacco Use: No Hx Alcohol Use: No Hx Substance Use: No - Immunization History Hx Tetanus Toxoid Vaccination: No Hx Influenza Vaccination: Yes Hx Pneumococcal Vaccination: Yes. ALLERGY; NKA Review of Systems - Review of Systems Systems not reviewed;Unavailable: Altered Mental Status Past Patient History - Infectious Disease Hx of Infectious Diseases: MRSA - Past Medical History & Family History Past Medical History?: Yes - Past Social History Smoking Status: Unknown If Ever Smoked - CARDIAC Hx Atrial Fibrillation: No Hx Cardia Arrhythmia: No Hx Congestive Heart Failure: No Hx Hypercholesterolemia: No Hx Hypertension: Yes Hx Mitral Valve Prolapse: No Hx Pacemaker: No Hx Peripheral Edema: No - PULMONARY Hx Asthma: No Hx Bronchitis: No Hx Chronic Obstructive Pulmonary Disease (COPD): No Hx Emphysema: No Hx Pneumonia: No Hx Pulmonary Embolism: No Hx Sleep Apnea: No - NEUROLOGICAL Hx Alzheimer's Disease: No Hx Dementia: No Hx Migraine: No Hx Multiple Sclerosis: Yes Hx Parkinson's Disease: No Hx Seizures: Yes Hx Transient Ischemic Attacks (TIA): No - HEENT Hx HEENT Problems: No Hx Blind: No Hx Cataracts: No Hx Deafness: No Hx Difficulty Chewing: No Hx Epistaxis: No Hx Glaucoma: No Hx Macular Degeneration: No - RENAL Hx Chronic Kidney Disease: No Hx Kidney Stones: No - ENDOCRINE/METABOLIC Hx Hyperthyroidism: No Hx Hypothyroidism: No - HEMATOLOGICAL/ONCOLOGICAL Hx Anemia: Yes Hx Human Immunodeficiency Virus (HIV): No - INTEGUMENTARY Hx Dermatological Problems: Yes Other/Comment: left buttocks pressure ulcer, two open areas - MUSCULOSKELETAL/RHEUMATOLOGICAL Hx Falls: No - GASTROINTESTINAL Hx Gastrointestinal Disorders: Yes Hx Gastroesophageal Reflux: Yes - GENITOURINARY/GYNECOLOGICAL Hx Genitourinary Disorders: No - PSYCHIATRIC Hx Substance Use: No - ANESTHESIA Hx Anesthesia: No (unable to obtain info from patient) Meds Allergies/Adverse Reactions: Allergies Allergy/AdvReac Type Severity Reaction Status Date / Time No Known Allergies Allergy Verified 10/21/17 09:48 - Medications Medications: Current Medications Diazepam (Valium) 5 mg PO HS [facility] Enoxaparin Sodium (Lovenox) 40 mg SC DAILY [facility] Famotidine (Pepcid) 20 mg PO HS [facility] Losartan Potassium (Cozaar) 50 mg PO DAILY [facility] Magnesium Hydroxide (Milk Of Magnesia) 30 ml PO Q4 PRN PRN Reason: Heartburn Physical Exam - Constitutional Appears: No Acute Distress Additional comments: MORBIDLY OBESE - Head Exam Head Exam: NORMAL INSPECTION - Eye Exam Eye Exam: EOMI, PERRL - ENT Exam ENT Exam: Normal Oropharynx - Neck Exam Neck exam: Positive for: Normal Inspection. Negative for: Meningismus - Respiratory Exam Respiratory Exam: Clear to Auscultation Bilateral, NORMAL BREATHING PATTERN - Cardiovascular Exam Cardiovascular Exam: REGULAR RHYTHM, +S1, +S2 - GI/Abdominal Exam GI & Abdominal Exam: Normal Bowel Sounds, Soft (OBESE). absent: Tenderness - Extremities Exam Extremities exam: Positive for: pedal edema (1+), pedal pulses present. Negative for: calf tenderness - Neurological Exam Neurological exam: Altered, CN II-XII Intact (CHRONIC PERESIS RUE/ B/L LE.) - Psychiatric Exam Psychiatric exam: Normal Mood - Skin Skin Exam: Normal Color, Warm (SACRAL DECUBITUS ULCER - STAGE -4 +VE MALODOUROUS DISCHARGE.) Results - Vital Signs Recent Vital Signs: Last Vital Signs Temp 98.6 F 11/08/18 22:00 Pulse 90 11/08/18 22:00 Resp 20 11/08/18 22:00 BP 136/84 11/08/18 22:00 Pulse Ox 97 11/08/18 22:00 - Labs Result Diagrams: 11/08/18 17:43 11/08/18 17:43 Labs: Laboratory Results - last 24 hr 11/08/18 11/08/18 17:43 17:43 WBC 7.8 D RBC 4.64 Hgb 12.9 Hct 40.2 MCV 86.7 MCH 27.8 MCHC 32.0 L RDW 15.1 H Plt Count 292 D MPV 9.3 Neut % (Auto) 55.8 Lymph % (Auto) 32.3 [place] % (Auto) 7.6 Eos % (Auto) 3.4 Baso % (Auto) 0.9 Neut # (Auto) 4.3 Lymph # (Auto) 2.5 [place] # (Auto) 0.6 Eos # (Auto) 0.3 Baso # (Auto) 0.1 Sodium 136 Potassium 4.0 Chloride 98 Carbon Dioxide 29 Anion Gap 13 BUN 15 Creatinine 0.6 L Est GFR ( Amer) > 60 Est GFR (Non-Af Amer) > 60 Random Glucose 122 H D Calcium 8.0 L Total Bilirubin 0.5 AST 33 ALT < 6 L D Alkaline Phosphatase 49 Total Protein 7.2 Albumin 3.7 Globulin 3.5 Albumin/Globulin Ratio 1.1 - Imaging and Cardiology Chest x-ray Status: Report reviewed by me (HARLEEN) Assessment & Plan (1) Altered mental status Status: Acute (2) Sacral decubitus ulcer Status: Acute (3) MRSA (methicillin resistant staph aureus) culture positive Status: Acute (4) Multiple sclerosis Status: Acute - Assessment and Plan (Free Text) Plan: PLAN; PANCULTURE; WOUND CULTURE UA/URINE CULTURE ESR CRP START IV ZOSYN 3.375MG IVPB Q 8HRLY 11/08/18. START IV VANCOMYCIN 1250MG IVPB Q 12HRLY 11/08/18 F/U VANCO TROUGH PRIOR TO 4TH DOSE AND KEEP BTWEEN 10-20MG/L F/U RENAL FUNCTION CLOSELY. WOUND CARE CONSULT ? SURGICAL DEBRIDEMENT , WILL DISCUSS . THANK YOU.
[2018-11-08] MEDS ORDERED: Piperacillin/Tazobact 3.375 GM in Sodium Chloride 100 ML IVPB SCH (23:00)
[2018-11-09] MEDS ORDERED: Piperacillin/Tazobact 3.375 GM in Sodium Chloride 100 ML IVPB SCH
[2018-11-09 01:55] LABS: SQUAMOUS EPITHIAL 1 /hpf (0-5); URINE BILIRUBIN NEGATIVE (NEGATIVE); URINE BLOOD NEGATIVE (NEGATIVE); URINE CLARITY Hazy (Clear); URINE COLOR Yellow (YELLOW); URINE GLUCOSE (UA) NORMAL (Normal); URINE LEUKOCYTE ESTERASE NEG Leu/uL (Negative); URINE PROTEIN 1+ mg/dL (NEGATIVE)
[2018-11-09] MEDS: Piperacillin/Tazobact 3.375 GM in Sodium Chloride 100 ML IVPB SCH ×3 (07:15→22:07)
[2018-11-09 07:47] LABS: BASO % 0.7 % (0.0-2.0); EOS # 0.2 K/uL (0.0-0.7); EOS % 3.8 % (0.0-4.0); LYMPH % 32.6 % (20.0-40.0); MEAN CELL VOLUME 85.8 fL (80.0-94.0); MEAN CORPUSCULAR HEMOGLOBIN 28.5 pg (27.0-31.0); MEAN CORPUSCULAR HGB CONC 33.2 g/dL (33.0-37.0); MEAN PLATELET VOLUME 8.9 fL (7.2-11.7); MONO # 0.5 K/uL (0.0-0.8); MONO % 7.8 % (0.0-10.0); NEUT # 3.4 K/uL (1.8-7.0); NEUT % 55.1 % (50.0-75.0); NRBC % 0.1 % (0.0-2.0); RBC 3.87 Mil/uL (4.40-5.90); RED CELL DISTRIBUTION WIDTH 15.2 % (11.5-14.5); WHITE BLOOD COUNT 6.1 K/uL (4.8-10.8)
[2018-11-09 08:04] LABS: ALBUMIN 3.1 g/dL (3.5-5.0); ALT/SGPT 13 U/L (21-72); AST/SGOT 18 U/L (17-59); BLOOD UREA NITROGEN 15 mg/dL (9-20); CALCIUM 7.6 mg/dl (8.6-10.4); GFR NON-AFRICAN AMERICAN > 60
[2018-11-09] MEDS ORDERED: Potassium Chloride 20 mEq ER Tab PO ONE ×2 (10:00→11:45)
[2018-11-09] MEDS: Enoxaparin 40 mg Syringe SC SCH (11:38)
--- NOTE | 2018-11-09 13:16 | CP.PCM.PN ---
Subjective - Date & Time of Evaluation Date of Evaluation: 11/09/18 Time of Evaluation: 13:12 - Subjective Subjective: CHIEF COMPLAINTS TODAY : NO SP COMPLAINTS ROS. HEENT : N. Resp : No cough, wheezing ,pleuritic CP ,or hemoptysis Cardio : No anginal CP, PND, orthopnea, palpitation GI : No abd.pain, n/v ,diarrhea or GI bleeding . 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 Ext : No swelling ,calf pain PE. Pt. is alert awake in no distress. V.S As noted in the chart Head ,ear nose,throat and eyes : Normal. Neck : Supple with normal carotids. Lungs: Clear air entry. Heart : S1 & S2 normal with S4. No murmur. Abd : Soft non tender with normal bowel sounds. Neuro : Moves all ext. with no localized deficit. Ext : No edema with intact pulses.Non tender calves Derm : No rashes SACRAL ULCER , UNSTAGEABLE TOUCHING BONE SIMILAR ON L. GLUTEAL REGION LABS/RADIOLOGY: ASSESSMENT/PLAN : IV AB ID/SURGICAL CONSULT LOCAL WOUND CARE Objective - Vital Signs/Intake and Output Vital Signs (last 24 hours): Temp Pulse Resp BP Pulse Ox 99.1 F 82 20 112/68 96 11/09/18 08:07 11/09/18 08:07 11/09/18 08:07 11/09/18 08:07 11/09/18 08:07 Intake and Output: 11/09/18 11/09/18 11:59 23:59 Intake Total 500 Output Total 200 Balance 300 - Medications Medications: Current Medications Diazepam (Valium) 5 mg PO HS [facility] Last Admin: 11/08/18 22:59 Dose: 5 mg Enoxaparin Sodium (Lovenox) 40 mg SC DAILY [facility] Last Admin: 11/09/18 11:38 Dose: 40 mg Famotidine (Pepcid) 20 mg PO HS [facility] Last Admin: 11/08/18 22:50 Dose: 20 mg Vancomycin HCl 1,250 mg/ (Sodium Chloride) 250 mls @ 166.6 mls/hr IVPB Q12H [facility]; Protocol Last Admin: 11/09/18 11:39 Dose: 166.6 mls/hr Piperacillin Sod/Tazobactam (Sod 3.375 gm/ Sodium Chloride) 100 mls @ 200 mls/hr IVPB Q8H [facility]; Protocol Last Admin: 11/09/18 07:15 Dose: 200 mls/hr Losartan Potassium (Cozaar) 50 mg PO DAILY [facility] Last Admin: 11/09/18 11:38 Dose: 50 mg Magnesium Hydroxide (Milk Of Magnesia) 30 ml PO Q4 PRN PRN Reason: Heartburn - Labs Labs: 11/09/18 07:26 11/09/18 07:26 Assessment and Plan (1) MRSA (methicillin resistant staph aureus) culture positive Status: Acute (2) Sacral decubitus ulcer Status: Acute (3) Multiple sclerosis Status: Acute
[2018-11-09] MEDS: Dakin's Topical 0.5%-Full Strength (480 ml) TOP SCH (15:22)
[2018-11-10] MEDS: Piperacillin/Tazobact 3.375 GM in Sodium Chloride 100 ML IVPB SCH ×4 (06:32→21:59)
[2018-11-10 07:30] LABS: BASO # 0.1 K/uL (0.0-0.2); BASO % 0.9 % (0.0-2.0); EOS # 0.3 K/uL (0.0-0.7); EOS % 4.7 % (0.0-4.0); LYMPH # 1.9 K/uL (1.0-4.3); LYMPH % 28.5 % (20.0-40.0); MEAN CORPUSCULAR HEMOGLOBIN 28.3 pg (27.0-31.0); MEAN CORPUSCULAR HGB CONC 32.9 g/dL (33.0-37.0); MEAN PLATELET VOLUME 9.1 fL (7.2-11.7); MONO # 0.5 K/uL (0.0-0.8); MONO % 6.9 % (0.0-10.0); NEUT # 3.9 K/uL (1.8-7.0); RBC 3.88 Mil/uL (4.40-5.90); RED CELL DISTRIBUTION WIDTH 15.4 % (11.5-14.5); WHITE BLOOD COUNT 6.6 K/uL (4.8-10.8)
[2018-11-10 08:01] LABS: ALBUMIN 3.1 g/dL (3.5-5.0); ALT/SGPT 20 U/L (21-72); AST/SGOT 23 U/L (17-59); BLOOD UREA NITROGEN 12 mg/dL (9-20); CALCIUM 7.7 mg/dl (8.6-10.4); GFR NON-AFRICAN AMERICAN > 60
[2018-11-10 08:13] LABS: INR 1.4; PROTHROMBIN TIME 15.4 SECONDS (9.7-12.2)
[2018-11-10] MEDS ORDERED: Potassium Chloride 20 mEq ER Tab PO ONE (09:00)
[2018-11-10] MEDS: Enoxaparin 40 mg Syringe SC SCH (09:19)
[2018-11-10] MEDS: Dakin's Topical 0.5%-Full Strength (480 ml) TOP SCH (09:20)
--- NOTE | 2018-11-10 12:04 | CP.PCM.PN ---
Subjective - Date & Time of Evaluation Date of Evaluation: 11/10/18 Time of Evaluation: 12:04 - Subjective Subjective: CHIEF COMPLAINTS TODAY : NO SP COMPLAINTS ROS. HEENT : N. Resp : No cough, wheezing ,pleuritic CP ,or hemoptysis Cardio : No anginal CP, PND, orthopnea, palpitation GI : No abd.pain, n/v ,diarrhea or GI bleeding . 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 Ext : No swelling ,calf pain PE. Pt. is alert awake in no distress. V.S As noted in the chart Head ,ear nose,throat and eyes : Normal. Neck : Supple with normal carotids. Lungs: Clear air entry. Heart : S1 & S2 normal with S4. No murmur. Abd : Soft non tender with normal bowel sounds. Neuro : Moves all ext. with no localized deficit. Ext : No edema with intact pulses.Non tender calves Derm : No rashes SACRAL ULCER , UNSTAGEABLE TOUCHING BONE SIMILAR ON L. GLUTEAL REGION LABS/RADIOLOGY: ASSESSMENT/PLAN : IV AB ID/SURGICAL CONSULT LOCAL WOUND CARE Objective - Vital Signs/Intake and Output Vital Signs (last 24 hours): Temp Pulse Resp BP Pulse Ox 97.9 F 81 20 130/84 97 11/10/18 07:00 11/10/18 07:00 11/10/18 07:00 11/10/18 07:00 11/10/18 07:00 Intake and Output: 11/10/18 11/10/18 11:59 23:59 Output Total 225 Balance -225 - Medications Medications: Current Medications Diazepam (Valium) 5 mg PO [facility] Last Admin: 11/09/18 22:08 Dose: 5 mg Enoxaparin Sodium (Lovenox) 40 mg SC DAILY [facility] Last Admin: 11/10/18 09:19 Dose: Not Given Famotidine (Pepcid) 20 mg PO [facility] Last Admin: 11/09/18 22:08 Dose: 20 mg Vancomycin HCl 1,250 mg/ (Sodium Chloride) 250 mls @ 166.6 mls/hr IVPB Q12H [facility]; Protocol Last Admin: 11/09/18 23:56 Dose: 166.6 mls/hr Piperacillin Sod/Tazobactam (Sod 3.375 gm/ Sodium Chloride) 100 mls @ 200 mls/hr IVPB Q8H [facility]; Protocol Last Admin: 11/10/18 06:32 Dose: 200 mls/hr Potassium Chloride (Potassium Chloride 10 Meq/100 Ml) 10 meq in 100 mls @ 100 mls/hr IVPB ONCE ONE Stop: 11/10/18 12:14 Last Admin: 11/10/18 11:23 Dose: 100 mls/hr Losartan Potassium (Cozaar) 50 mg PO DAILY [facility] Last Admin: 11/10/18 09:19 Dose: 50 mg Magnesium Hydroxide (Milk Of Magnesia) 30 ml PO Q4 PRN PRN Reason: Heartburn Sodium Hypochlorite (Dakins Solution 0.5%) 0 ml TOP DAILY [facility] Last Admin: 11/10/18 09:20 Dose: 1 applic - Labs Labs: 11/10/18 07:21 11/10/18 07:21 PT 15.4 SECONDS (9.7-12.2) H 11/10/18 07:21 INR 1.4 11/10/18 07:21 Assessment and Plan (1) MRSA (methicillin resistant staph aureus) culture positive Status: Acute (2) Sacral decubitus ulcer Status: Acute (3) Multiple sclerosis Status: Acute
--- NOTE | 2018-11-10 12:14 | CP.PCM.PN ---
Subjective - Date & Time of Evaluation Date of Evaluation: 11/10/18 Time of Evaluation: 12:13 - Subjective Subjective: CHIEF COMPLAINTS TODAY : afebrile, No complaints SEEN BY SURGERY DR TRINIDAD SEEN BY WOUND CARE MR MAYLIN MCLEOD. HEENT : N. Resp : No cough, wheezing ,pleuritic CP ,or hemoptysis Cardio : No anginal CP, PND, orthopnea, palpitation GI : No abd.pain, n/v ,diarrhea or GI bleeding . 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 ULCERS WITH NECROTIC BASE. Psych : Normal affect. Ext : No swelling ,calf pain PE. Pt. is alert awake in no distress. V.S As noted in the chart Head ,ear nose,throat and eyes : Normal. Neck : Supple with normal carotids. Lungs: Clear air entry. Heart : S1 & S2 normal with S4. No murmur. Abd : Soft non tender with normal bowel sounds. Neuro : Moves all ext. with no localized deficit. Ext : No edema with intact pulses.Non tender calves Derm : No rashes SACRAL ULCER , UNSTAGEABLE THE NECROTIC BASE SIMILAR ON L. GLUTEAL REGION LABS/RADIOLOGY: REVIEWED BLOOD CULTURE 2: 2 SET +VE [facility] ASSESSMENT/PLAN : ON IV ZOSYN 3.375MG IVPB Q 8HRLY 11/08/18. ON IV VANCOMYCIN 1250MG IVPB Q 12HRLY 11/08/18 F/U VANCO TROUGH PRIOR TO 4TH DOSE AND KEEP BTWEEN 10-20MG/L F/U BLOOD CULTURES F/U RENAL FUNCTION CLOSELY. WOUND CARE CONSULT SURGICAL DEBRIDEMENT WITH dR. [place] ., LOCAL WOUND CARE PER WOUND CARE. Objective - Vital Signs/Intake and Output Vital Signs (last 24 hours): Temp Pulse Resp BP Pulse Ox 97.9 F 81 20 130/84 97 11/10/18 07:00 11/10/18 07:00 11/10/18 07:00 11/10/18 07:00 11/10/18 07:00 Intake and Output: 11/10/18 11/10/18 06:59 18:59 Intake Total 220 Output Total 225 Balance -5 - Medications Medications: Current Medications Diazepam (Valium) 5 mg PO HS [facility] Last Admin: 11/09/18 22:08 Dose: 5 mg Enoxaparin Sodium (Lovenox) 40 mg SC DAILY [facility] Last Admin: 11/10/18 09:19 Dose: Not Given Famotidine (Pepcid) 20 mg PO HS [facility] Last Admin: 11/09/18 22:08 Dose: 20 mg Vancomycin HCl 1,250 mg/ (Sodium Chloride) 250 mls @ 166.6 mls/hr IVPB Q12H [facility]; Protocol Last Admin: 11/09/18 23:56 Dose: 166.6 mls/hr Piperacillin Sod/Tazobactam (Sod 3.375 gm/ Sodium Chloride) 100 mls @ 200 mls/hr IVPB Q8H [facility]; Protocol Last Admin: 11/10/18 06:32 Dose: 200 mls/hr Potassium Chloride (Potassium Chloride 10 Meq/100 Ml) 10 meq in 100 mls @ 100 mls/hr IVPB ONCE ONE Stop: 11/10/18 12:14 Last Admin: 11/10/18 11:23 Dose: 100 mls/hr Losartan Potassium (Cozaar) 50 mg PO DAILY [facility] Last Admin: 11/10/18 09:19 Dose: 50 mg Magnesium Hydroxide (Milk Of Magnesia) 30 ml PO Q4 PRN PRN Reason: Heartburn Sodium Hypochlorite (Dakins Solution 0.5%) 0 ml TOP DAILY [facility] Last Admin: 11/10/18 09:20 Dose: 1 applic - Labs Labs: 11/10/18 07:21 11/10/18 07:21 PT 15.4 SECONDS (9.7-12.2) H 11/10/18 07:21 INR 1.4 11/10/18 07:21 Assessment and Plan (1) Altered mental status Status: Acute (2) Sacral decubitus ulcer Status: Acute (3) MRSA (methicillin resistant staph aureus) culture positive Status: Acute (4) Multiple sclerosis Status: Acute
[2018-11-10 13:16] LABS: BLOOD UREA NITROGEN 12 mg/dL (9-20); CALCIUM 7.7 mg/dl (8.6-10.4); GFR NON-AFRICAN AMERICAN > 60
[2018-11-10] MEDS ORDERED: Midazolam 2 MG/2 ML VIAL ONE (14:26)
[2018-11-10] MEDS ORDERED: Etomidate 20 mg/10ml Inj IV ONE (14:26)
[2018-11-10] MEDS ORDERED: HYDROmorphone 0.5 mg/0.5 ml ISec IVP PRN (14:53)
[2018-11-10] MEDS ORDERED: Piperacillin/Tazobact 3.375 gm 100 ML IVPB ONE (14:59)
[2018-11-10] MEDS ORDERED: Neostigmine 1:1000 (1 mg/ml) Inj ONE (15:11)
[2018-11-11] MEDS: Piperacillin/Tazobact 3.375 GM in Sodium Chloride 100 ML IVPB SCH ×3 (06:21→22:43)
--- NOTE | 2018-11-11 06:58 | OP ---
PROCEDURE DATE: 11/10/2018 PREOPERATIVE DIAGNOSIS: Sacral and left iliac decubitus ulcers. POSTOPERATIVE DIAGNOSES: 1. 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 2. Large sacral polyp. 3. Stage III left iliac ulcer with necrotic subcutaneous tissue. PROCEDURES PERFORMED: 1. Debridement of sacral decubitus with drainage of sacral osteomyelitis, bone biopsy, removal of sacral polyp. 2. Debridement and drainage of left iliac decubitus with abscess. SURGEON: Ulices Wesley MD ANESTHESIA: General. BLOOD LOSS: 50 mL. POSTOPERATIVE CONDITION: Stable. INDICATIONS FOR SURGERY: This is a 63-year-old male who was bedridden from multiple sclerosis, found to have multiple sacral decubitus at the [facility], transferred to [facility]. He was seen yesterday and recommendations were made to bring the patient to the operating room for debridement. Informed consent was obtained from his . GROSS FINDINGS: The patient basically had three ulcers on the left greater trochanteric ulcer which was a stage I to II which had a dry eschar which does not need a debridement. There was also a overlying sacral decubitus, measuring 5 x 8 cm which had necrotic tissue, extending down to the sacral bone. The sacral bone was grossly infected, and osteomyelitis was drained and cultured. There was another ulcer over the left iliac crest which was a stage III deep into the subcutaneous space, but did not go the bone. It was associated with a retroperitoneal abscess which was drained. DESCRIPTION OF PROCEDURE: The patient was taken to the operating room. General anesthesia was administered. He was placed in a right lateral decubitus position. The sacral ulcer was debrided first. All necrotic tissue was removed using the Bovie. The bone was exposed and a bone biopsy was taken using a rongeur, and sacral osteomyelitis was drained and cultured. A large sacral polyp was removed and sent for specimen to rule out squamous cell carcinoma. The wound was then gradually debrided and packed with Surgicel and wet saline packing gauze. Next, the iliac ulcer was debrided down into the muscle. Bleeding was controlled using Bovie, and abscess was drained and cultured. It was then packed with wet saline gauze. The patient tolerated the procedure well and returned to recovery room in stable condition. Ulices Wesley MD [facility] # [id number]
[2018-11-11 07:16] LABS: BASO % 0.6 % (0.0-2.0); EOS # 0.4 K/uL (0.0-0.7); HEMOGLOBIN 10.4 g/dL (12.0-18.0); LYMPH # 1.3 K/uL (1.0-4.3); LYMPH % 20.5 % (20.0-40.0); MEAN CELL VOLUME 86.4 fL (80.0-94.0); MEAN CORPUSCULAR HEMOGLOBIN 28.1 pg (27.0-31.0); MEAN CORPUSCULAR HGB CONC 32.5 g/dL (33.0-37.0); MEAN PLATELET VOLUME 8.9 fL (7.2-11.7); MONO # 0.5 K/uL (0.0-0.8); MONO % 7.7 % (0.0-10.0); NEUT % 65.2 % (50.0-75.0); NRBC % 0.1 % (0.0-2.0); RBC 3.7 Mil/uL (4.40-5.90); RED CELL DISTRIBUTION WIDTH 15.3 % (11.5-14.5); WHITE BLOOD COUNT 6.2 K/uL (4.8-10.8)
[2018-11-11 07:57] LABS: ALB/GLOB RATIO 1.1 (1.0-2.1); ALBUMIN 3.1 g/dL (3.5-5.0); ALT/SGPT 18 U/L (21-72); AST/SGOT 30 U/L (17-59); BLOOD UREA NITROGEN 11 mg/dL (9-20); CALCIUM 7.3 mg/dl (8.6-10.4); GFR NON-AFRICAN AMERICAN > 60
[2018-11-11] MEDS: Enoxaparin 40 mg Syringe SC SCH (10:47)
[2018-11-11] MEDS: Dakin's Topical 0.5%-Full Strength (480 ml) TOP SCH (10:47)
--- NOTE | 2018-11-11 11:56 | CP.PCM.PN ---
Subjective - Date & Time of Evaluation Date of Evaluation: 11/11/18 Time of Evaluation: 11:54 - Subjective Subjective: CHIEF COMPLAINTS TODAY : NO SP COMPLAINTS PT. HAD DEBRIDEMENT SCARAL WOUND IS UPTO SACRAL BONE WITH VISIBLE PUS ROS. HEENT : N. Resp : No cough, wheezing ,pleuritic CP ,or hemoptysis Cardio : No anginal CP, PND, orthopnea, palpitation GI : No abd.pain, n/v ,diarrhea or GI bleeding . BARREL POLISHER INSIDE : No headache, vertigo, LOWER EXT LOSS OF POWER Musculoskel : No joint swelling , Derm : No rash DU Psych : Normal affect. Ext : No swelling ,calf pain PE. Pt. is alert awake in no distress. V.S As noted in the chart Head ,ear nose,throat and eyes : Normal. Neck : Supple with normal carotids. Lungs: Clear air entry. Heart : S1 & S2 normal with S4. No murmur. Abd : Soft non tender with normal bowel sounds. Neuro : Moves all ext. with no localized deficit. Ext : No edema with intact pulses.Non tender calves Derm : No rashes SACRAL ULCER , UNSTAGEABLE TOUCHING BONE SIMILAR ON L. GLUTEAL REGION LABS/RADIOLOGY: ASSESSMENT/PLAN : IV AB FOR OM OF SACRAL BONE Objective - Vital Signs/Intake and Output Vital Signs (last 24 hours): Temp Pulse Resp BP Pulse Ox 98.2 F 96 H 20 117/72 96 11/11/18 07:00 11/11/18 07:00 11/11/18 07:00 11/11/18 07:00 11/11/18 07:00 Intake and Output: 11/10/18 11/11/18 23:59 11:59 Intake Total 970 Output Total 200 Balance 970 -200 - Medications Medications: Current Medications Diazepam (Valium) 5 mg PO HS [facility] Last Admin: 11/10/18 21:16 Dose: 5 mg Enoxaparin Sodium (Lovenox) 40 mg SC DAILY [facility] Last Admin: 11/11/18 10:47 Dose: 40 mg Famotidine (Pepcid) 20 mg PO HS [facility] Last Admin: 11/10/18 21:16 Dose: 20 mg Vancomycin HCl 1,250 mg/ (Sodium Chloride) 250 mls @ 166.6 mls/hr IVPB Q12H [facility]; Protocol Last Admin: 11/11/18 00:16 Dose: 166.6 mls/hr Piperacillin Sod/Tazobactam (Sod 3.375 gm/ Sodium Chloride) 100 mls @ 200 mls/hr IVPB Q8H [facility]; Protocol Last Admin: 11/11/18 06:21 Dose: 200 mls/hr Losartan Potassium (Cozaar) 50 mg PO DAILY [facility] Last Admin: 11/11/18 10:47 Dose: 50 mg Magnesium Hydroxide (Milk Of Magnesia) 30 ml PO Q4 PRN PRN Reason: Heartburn Sodium Hypochlorite (Dakins Solution 0.5%) 0 ml TOP DAILY [facility] Last Admin: 11/11/18 10:47 Dose: 1 applic - Labs Labs: 11/11/18 06:56 11/11/18 06:56 PT 15.4 SECONDS (9.7-12.2) H 11/10/18 07:21 INR 1.4 11/10/18 07:21 Assessment and Plan (1) MRSA (methicillin resistant staph aureus) culture positive Status: Acute (2) Sacral decubitus ulcer Status: Acute (3) Multiple sclerosis Status: Acute
[2018-11-11] MEDS ORDERED: Midazolam 2 MG/2 ML VIAL ONE (13:08)
[2018-11-11] MEDS ORDERED: Propofol 10 mg/ml Inj (20 ML) ONE (13:11)
[2018-11-11] MEDS: Lactated Ringer's 1,000 ML IV SCH (15:30)
--- NOTE | 2018-11-11 23:13 | CP.PCM.PN ---
Subjective - Date & Time of Evaluation Date of Evaluation: 11/11/18 Time of Evaluation: 23:12 - Subjective Subjective: CHIEF COMPLAINTS TODAY : afebrile, No complaints S/P 2ND I/D IN OR PER DR TRINIDAD 11/11/18 ROS. HEENT : N. Resp : No cough, wheezing ,pleuritic CP ,or hemoptysis Cardio : No anginal CP, PND, orthopnea, palpitation GI : No abd.pain, n/v ,diarrhea or GI bleeding . CONTAINER FILLER : No headache, vertigo, LOWER EXT LOSS OF POWER Musculoskel : No joint swelling , Derm : STAGE 3/ 4 SACRAL AND GLUTEAL DEC. ULCERS WITH NECROTIC BASE. Psych : Normal affect. Ext : No swelling ,calf pain PE. Pt. is alert awake in no distress. V.S As noted in the chart Head ,ear nose,throat and eyes : Normal. Neck : Supple with normal carotids. Lungs: Clear air entry. Heart : S1 & S2 normal with S4. No murmur. Abd : Soft non tender with normal bowel sounds. Neuro : Moves all ext. with no localized deficit. Ext : No edema with intact pulses.Non tender calves Derm : No rashes SACRAL ULCER , UNSTAGEABLE THE NECROTIC BASE SIMILAR ON L. GLUTEAL REGION LABS/RADIOLOGY: REVIEWED BLOOD CULTURE 2: 2 SET +VE GPC - SCN ? SKIN SHEILA WOUND CULTURE +VE pROTEUS MIRABILIS S- mERREM/zOSYN/GENTAMICIN AND GNR - uRINE CULTURE+VE GPC < 10.000ORG /ML VANC TROUGH 7.4 LOW 11/10/18 CREAT0.8/BUN 11 ASSESSMENT/PLAN : DC IV ZOSYN 3.375MG IVPB Q 8HRLY 11/08/18. START IV MERREM 1GM IVPB Q8HRLY 11/12/18 INCREASE IV VANCOMYCIN 1350MG IVPB Q 12HRLY 11/08/18 ( 11/12/18 ) F/U VANCO TROUGH PRIOR TO 4TH DOSE AND KEEP BTWEEN 10-20MG/L F/U BLOOD CULTURES F/U RENAL FUNCTION CLOSELY. WOUND CARE SURGICAL DEBRIDEMENT WITH dR. [place] ., Objective - Vital Signs/Intake and Output Vital Signs (last 24 hours): Temp Pulse Resp BP Pulse Ox 98.1 F 81 20 110/59 L 95 11/11/18 15:47 11/11/18 15:47 11/11/18 15:47 11/11/18 15:47 11/11/18 15:47 Intake and Output: 11/11/18 11/12/18 18:59 06:59 Intake Total 450 200 Balance 450 200 - Medications Medications: Current Medications Diazepam (Valium) 5 mg PO HS [facility] Last Admin: 11/11/18 22:43 Dose: 5 mg Enoxaparin Sodium (Lovenox) 40 mg SC DAILY [facility] Last Admin: 11/11/18 10:47 Dose: 40 mg Famotidine (Pepcid) 20 mg PO HS [facility] Last Admin: 11/11/18 22:43 Dose: 20 mg Vancomycin HCl 1,250 mg/ (Sodium Chloride) 250 mls @ 166.6 mls/hr IVPB Q12H [facility]; Protocol Last Admin: 11/11/18 13:00 Dose: 250 mls Piperacillin Sod/Tazobactam (Sod 3.375 gm/ Sodium Chloride) 100 mls @ 200 mls/hr IVPB Q8H [facility]; Protocol Last Admin: 11/11/18 22:43 Dose: 200 mls/hr Lactated Ringer's (Lactated Ringer's) 1,000 mls @ 100 mls/hr IV .Q10H [facility] Last Admin: 11/11/18 15:30 Dose: 100 mls/hr Losartan Potassium (Cozaar) 50 mg PO DAILY [facility] Last Admin: 11/11/18 10:47 Dose: 50 mg Magnesium Hydroxide (Milk Of Magnesia) 30 ml PO Q4 PRN PRN Reason: Heartburn Sodium Hypochlorite (Dakins Solution 0.5%) 0 ml TOP DAILY [facility] Last Admin: 11/11/18 10:47 Dose: 1 applic - Labs Labs: 11/11/18 06:56 11/11/18 06:56 PT 15.4 SECONDS (9.7-12.2) H 11/10/18 07:21 INR 1.4 11/10/18 07:21 Assessment and Plan (1) Altered mental status Status: Acute (2) Sacral decubitus ulcer Status: Acute (3) MRSA (methicillin resistant staph aureus) culture positive Status: Acute (4) Multiple sclerosis Status: Acute
[2018-11-12] MEDS: Lactated Ringer's 1,000 ML IV SCH ×4 (02:00→21:03)
[2018-11-12] MEDS: Meropenem 1 GM in Sodium Chloride 0.9% 100 ML IVPB SCH ×3 (05:57→21:03)
--- NOTE | 2018-11-12 06:02 | OP ---
PROCEDURE DATE: 11/11/2018 PREOPERATIVE DIAGNOSIS: Left sacral and hip decubitus stage IV. POSTOPERATIVE DIAGNOSIS: Left sacral and hip decubitus stage IV. PROCEDURES PERFORMED: 1. Debridement of sacral ulcer with re-drainage of osteomyelitis and repair of parasacral blood vessel. 2. Debridement of left sacral ulcer and drainage of hip osteomyelitis. SURGEON: Ulices Wesley MD ANESTHESIA: General. BLOOD LOSS: 30 mL. POSTOPERATIVE CONDITION: Stable. INDICATIONS FOR SURGERY: This is a 63-year-old man, taken back to the OR as a staged procedure for staged debridements of two severe stage IV ulcers, one at the sacral area and one at his left hip near his iliac crest. DESCRIPTION OF PROCEDURE: The patient was taken to the operating room, general anesthesia administered, placed in a right lateral decubitus position. Both wounds were prepped and draped. There was wound necrosis noted in both wounds. They were both debrided down to the bone. The bone was drained. Bone biopsies were taken in the sacral and hip regions. Bleeding was controlled using the Bovie. Larger parasacral blood vessel was repaired. Wound was pulse irrigated with saline solution, packed open with wet saline gauze. The patient tolerated the procedure well and returned to the recovery room in stable condition. Ulices Wesley MD
[2018-11-12 09:41] LABS: BASO % 0.6 % (0.0-2.0); EOS # 0.3 K/uL (0.0-0.7); EOS % 5.7 % (0.0-4.0); HEMOGLOBIN 10.1 g/dL (12.0-18.0); LYMPH # 0.8 K/uL (1.0-4.3); LYMPH % 17.1 % (20.0-40.0); MEAN CORPUSCULAR HEMOGLOBIN 28.3 pg (27.0-31.0); MEAN CORPUSCULAR HGB CONC 32.9 g/dL (33.0-37.0); MEAN PLATELET VOLUME 8.3 fL (7.2-11.7); MONO # 0.5 K/uL (0.0-0.8); MONO % 10.5 % (0.0-10.0); NEUT # 3.2 K/uL (1.8-7.0); NEUT % 66.1 % (50.0-75.0); RBC 3.57 Mil/uL (4.40-5.90); RED CELL DISTRIBUTION WIDTH 15.4 % (11.5-14.5); WHITE BLOOD COUNT 4.9 K/uL (4.8-10.8)
[2018-11-12 10:01] LABS: ALB/GLOB RATIO 1.1 (1.0-2.1); ALBUMIN 3.1 g/dL (3.5-5.0); ALT/SGPT 22 U/L (21-72); AST/SGOT 29 U/L (17-59); BLOOD UREA NITROGEN 12 mg/dL (9-20); CALCIUM 7.5 mg/dl (8.6-10.4); GFR NON-AFRICAN AMERICAN > 60
[2018-11-12] MEDS: Enoxaparin 40 mg Syringe SC SCH (10:26)
[2018-11-12] MEDS: Dakin's Topical 0.5%-Full Strength (480 ml) TOP SCH (10:27)
--- NOTE | 2018-11-12 11:28 | CP.PCM.PN ---
Subjective - Date & Time of Evaluation Date of Evaluation: 11/12/18 Time of Evaluation: 11:27 - Subjective Subjective: CHIEF COMPLAINTS TODAY : NO SP COMPLAINTS PT. HAD DEBRIDEMENT SCARAL WOUND IS UPTO SACRAL BONE WITH VISIBLE PUS ROS. HEENT : N. Resp : No cough, wheezing ,pleuritic CP ,or hemoptysis Cardio : No anginal CP, PND, orthopnea, palpitation GI : No abd.pain, n/v ,diarrhea or GI bleeding . FOLLOW UP MANAGER : No headache, vertigo, LOWER EXT LOSS OF POWER Musculoskel : No joint swelling , Derm : No rash DU Psych : Normal affect. Ext : No swelling ,calf pain PE. Pt. is alert awake in no distress. V.S As noted in the chart Head ,ear nose,throat and eyes : Normal. Neck : Supple with normal carotids. Lungs: Clear air entry. Heart : S1 & S2 normal with S4. No murmur. Abd : Soft non tender with normal bowel sounds. Neuro : Moves all ext. with no localized deficit. Ext : No edema with intact pulses.Non tender calves Derm : No rashes SACRAL ULCER , UNSTAGEABLE TOUCHING BONE SIMILAR ON L. GLUTEAL REGION LABS/RADIOLOGY: ASSESSMENT/PLAN : IV AB FOR OM OF SACRAL BON Objective - Vital Signs/Intake and Output Vital Signs (last 24 hours): Temp Pulse Resp BP Pulse Ox 99.8 F H 93 H 20 118/61 95 11/11/18 23:20 11/11/18 23:20 11/11/18 23:20 11/11/18 23:20 11/11/18 23:20 Intake and Output: 11/11/18 11/12/18 23:59 11:59 Intake Total 650 Balance 650 - Medications Medications: Current Medications Diazepam (Valium) 5 mg PO HS [facility] Last Admin: 11/11/18 22:43 Dose: 5 mg Enoxaparin Sodium (Lovenox) 40 mg SC DAILY [facility] Last Admin: 11/12/18 10:26 Dose: Not Given Famotidine (Pepcid) 20 mg PO HS [facility] Last Admin: 11/11/18 22:43 Dose: 20 mg Lactated Ringer's (Lactated Ringer's) 1,000 mls @ 100 mls/hr IV .Q10H [facility] Last Admin: 11/12/18 10:55 Dose: Not Given Meropenem 1 gm/ Sodium (Chloride) 100 mls @ 100 mls/hr IVPB Q8H [facility]; Protocol Last Admin: 11/12/18 05:57 Dose: 100 mls/hr Vancomycin HCl 1,350 mg/ (Sodium Chloride) 250 mls @ 166.6 mls/hr IVPB Q12H [facility]; Protocol Last Admin: 11/12/18 03:25 Dose: Not Given Potassium Chloride (Potassium Chloride 20 Meq/100 Ml) 20 meq in 100 mls @ 50 mls/hr IVPB ONCE ONE Stop: 11/12/18 12:59 Last Admin: 11/12/18 10:56 Dose: 50 mls/hr Losartan Potassium (Cozaar) 50 mg PO DAILY [facility] Last Admin: 11/12/18 10:26 Dose: 50 mg Magnesium Hydroxide (Milk Of Magnesia) 30 ml PO Q4 PRN PRN Reason: Heartburn Sodium Hypochlorite (Dakins Solution 0.5%) 0 ml TOP DAILY [facility] Last Admin: 11/12/18 10:27 Dose: 1 applic - Labs Labs: 11/12/18 09:30 11/12/18 09:30 PT 15.4 SECONDS (9.7-12.2) H 11/10/18 07:21 INR 1.4 11/10/18 07:21 Assessment and Plan (1) MRSA (methicillin resistant staph aureus) culture positive Status: Acute (2) Sacral decubitus ulcer Status: Acute (3) Multiple sclerosis Status: Acute
[2018-11-12] MEDS ORDERED: Midazolam 2 MG/2 ML VIAL ONE (14:51)
[2018-11-12] MEDS ORDERED: Propofol 10 mg/ml Inj (20 ML) ONE (14:51)
[2018-11-12] MEDS ORDERED: HYDROmorphone 0.5 mg/0.5 ml ISec IVP PRN (15:18)
--- NOTE | 2018-11-12 22:51 | CP.PCM.PN ---
Subjective - Date & Time of Evaluation Date of Evaluation: 11/12/18 Time of Evaluation: 22:51 - Subjective Subjective: CHIEF COMPLAINTS TODAY : afebrile, No complaints S/P 3rd I/D IN OR PER DR AMOS MCLEOD. HEENT : N. Resp : No cough, wheezing ,pleuritic CP ,or hemoptysis Cardio : No anginal CP, PND, orthopnea, palpitation GI : No abd.pain, n/v ,diarrhea or GI bleeding . 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 ULCERS WITH PACKING Psych : Normal affect. Ext : No swelling ,calf pain PE. Pt. is alert awake in no distress. V.S As noted in the chart Head ,ear nose,throat and eyes : Normal. Neck : Supple with normal carotids. Lungs: Clear air entry. Heart : S1 & S2 normal with S4. No murmur. Abd : Soft non tender with normal bowel sounds. Neuro : Moves all ext. with no localized deficit. Ext : No edema with intact pulses.Non tender calves Derm : No rashes SACRAL ULCER , UNSTAGEABLE WITH PACKING SIMILAR ON L. GLUTEAL REGION LABS/RADIOLOGY: REVIEWED WBC 4.9 CREAT 0.9/BUN 12 BLOOD CULTURE 2: 2 SET +VE GPC - SCN ? SKIN SHEILA WOUND CULTURE +VE pROTEUS MIRABILIS S- mERREM/zOSYN/GENTAMICIN AND PSEUDOMONAS AERUGINOSA S- MERREM URINE CULTURE+VE GPC < 10.000ORG /ML ASSESSMENT/PLAN : START IV MERREM 1GM IVPB Q8HRLY 11/12/18 D/C IV VANCOMYCIN. START IV GENTAMICIN 200MG IVPB 11/13/18 ONCE F/U 100MG IVPB Q 24HRLY DAILY X 5DAYS F/U RENAL FUNCTION CLOSELY. WOUND CARE PER DR TRINIDAD PT WILL NEED WOUND VAC. Objective - Vital Signs/Intake and Output Vital Signs (last 24 hours): Temp Pulse Resp BP Pulse Ox 98 F 84 23 140/70 96 11/12/18 16:45 11/12/18 16:45 11/12/18 16:45 11/12/18 16:45 11/12/18 16:45 Intake and Output: 11/12/18 11/13/18 18:59 06:59 Intake Total 425 Balance 425 - Medications Medications: Current Medications Diazepam (Valium) 5 mg PO HS [facility] Last Admin: 11/12/18 21:02 Dose: 5 mg Enoxaparin Sodium (Lovenox) 40 mg SC DAILY [facility] Last Admin: 11/12/18 10:26 Dose: Not Given Famotidine (Pepcid) 20 mg PO HS [facility] Last Admin: 11/12/18 21:03 Dose: 20 mg Lactated Ringer's (Lactated Ringer's) 1,000 mls @ 100 mls/hr IV .Q10H [facility] Last Admin: 11/12/18 21:03 Dose: Not Given Meropenem 1 gm/ Sodium (Chloride) 100 mls @ 100 mls/hr IVPB Q8H [facility]; Protocol Last Admin: 11/12/18 21:03 Dose: 100 mls/hr Lactated Ringer's (Lactated Ringer's) 1,000 mls @ 100 mls/hr IV .Q10H [facility] Last Admin: 11/12/18 15:30 Dose: Not Given Gentamicin Sulfate 200 mg/ (Sodium Chloride) 105 mls @ 100 mls/hr IVPB ONCE ONE; Protocol Stop: 11/13/18 11:02 Losartan Potassium (Cozaar) 50 mg PO DAILY [facility] Last Admin: 11/12/18 10:26 Dose: 50 mg Magnesium Hydroxide (Milk Of Magnesia) 30 ml PO Q4 PRN PRN Reason: Heartburn Sodium Hypochlorite (Dakins Solution 0.5%) 0 ml TOP DAILY [facility] Last Admin: 11/12/18 10:27 Dose: 1 applic - Labs Labs: 11/12/18 09:30 11/12/18 09:30 PT 15.4 SECONDS (9.7-12.2) H 11/10/18 07:21 INR 1.4 11/10/18 07:21 Assessment and Plan (1) Altered mental status Status: Acute (2) Sacral decubitus ulcer Status: Acute (3) MRSA (methicillin resistant staph aureus) culture positive Status: Acute (4) Multiple sclerosis Status: Acute
[2018-11-13 00:29] VITALS: RESP 20
[2018-11-13] MEDS: Lactated Ringer's 1,000 ML IV SCH ×5 (00:52→22:55)
[2018-11-13] MEDS: Meropenem 1 GM in Sodium Chloride 0.9% 100 ML IVPB SCH ×3 (05:11→21:13)
[2018-11-13 08:10] LABS: ALBUMIN 2.9 g/dL (3.5-5.0); ALT/SGPT 29 U/L (21-72); AST/SGOT 35 U/L (17-59); BLOOD UREA NITROGEN 10 mg/dL (9-20); CALCIUM 7.5 mg/dl (8.6-10.4); GFR NON-AFRICAN AMERICAN > 60
[2018-11-13 08:13] LABS: BASO % 0.2 % (0.0-2.0); EOS # 0.1 K/uL (0.0-0.7); EOS % 3.3 % (0.0-4.0); LYMPH # 1.4 K/uL (1.0-4.3); LYMPH % 37.6 % (20.0-40.0); MEAN CELL VOLUME 85.3 fL (80.0-94.0); MEAN CORPUSCULAR HEMOGLOBIN 28.3 pg (27.0-31.0); MEAN CORPUSCULAR HGB CONC 33.2 g/dL (33.0-37.0); MEAN PLATELET VOLUME 8.7 fL (7.2-11.7); MONO # 0.4 K/uL (0.0-0.8); MONO % 10.4 % (0.0-10.0); NEUT # 1.8 K/uL (1.8-7.0); NEUT % 48.5 % (50.0-75.0); RBC 3.52 Mil/uL (4.40-5.90); RED CELL DISTRIBUTION WIDTH 15.5 % (11.5-14.5); WHITE BLOOD COUNT 3.8 K/uL (4.8-10.8)
[2018-11-13] MEDS: Enoxaparin 40 mg Syringe SC SCH (09:57)
[2018-11-13] MEDS: Dakin's Topical 0.5%-Full Strength (480 ml) TOP SCH (09:58)
[2018-11-13] MEDS ORDERED: Potassium Chloride 20 mEq ER Tab PO ONE (10:15)
--- NOTE | 2018-11-13 12:45 | CP.PCM.PN ---
Subjective - Date & Time of Evaluation Date of Evaluation: 11/13/18 Time of Evaluation: 12:44 - Subjective Subjective: CHIEF COMPLAINTS TODAY : NO SP COMPLAINTS PT. HAD DEBRIDEMENT SCARAL WOUND IS UPTO SACRAL BONE WITH VISIBLE PUS ROS. HEENT : N. Resp : No cough, wheezing ,pleuritic CP ,or hemoptysis Cardio : No anginal CP, PND, orthopnea, palpitation GI : No abd.pain, n/v ,diarrhea or GI bleeding . ACADEMIC AFFAIRS MANAGER : No headache, vertigo, LOWER EXT LOSS OF POWER Musculoskel : No joint swelling , Derm : No rash DU Psych : Normal affect. Ext : No swelling ,calf pain PE. Pt. is alert awake in no distress. V.S As noted in the chart Head ,ear nose,throat and eyes : Normal. Neck : Supple with normal carotids. Lungs: Clear air entry. Heart : S1 & S2 normal with S4. No murmur. Abd : Soft non tender with normal bowel sounds. Neuro : Moves all ext. with no localized deficit. Ext : No edema with intact pulses.Non tender calves Derm : No rashes SACRAL ULCER , UNSTAGEABLE TOUCHING BONE SIMILAR ON L. GLUTEAL REGION LABS/RADIOLOGY: ASSESSMENT/PLAN : IV AB FOR OM OF SACRAL BON Objective - Vital Signs/Intake and Output Vital Signs (last 24 hours): Temp Pulse Resp BP Pulse Ox 98.8 F 71 20 127/83 97 11/13/18 07:00 11/13/18 07:00 11/13/18 07:00 11/13/18 07:00 11/13/18 07:00 Intake and Output: 11/13/18 11/13/18 11:59 23:59 Intake Total 900 Output Total 650 Balance 250 - Medications Medications: Current Medications Diazepam (Valium) 5 mg PO HS [facility] Last Admin: 11/12/18 21:02 Dose: 5 mg Enoxaparin Sodium (Lovenox) 40 mg SC DAILY [facility] Last Admin: 11/13/18 09:57 Dose: 40 mg Famotidine (Pepcid) 20 mg PO HS [facility] Last Admin: 11/12/18 21:03 Dose: 20 mg Lactated Ringer's (Lactated Ringer's) 1,000 mls @ 100 mls/hr IV .Q10H [facility] Last Admin: 11/12/18 21:03 Dose: Not Given Meropenem 1 gm/ Sodium (Chloride) 100 mls @ 100 mls/hr IVPB Q8H [facility]; Protocol Last Admin: 11/13/18 05:11 Dose: 100 mls/hr Lactated Ringer's (Lactated Ringer's) 1,000 mls @ 100 mls/hr IV .Q10H [facility] Last Admin: 11/13/18 11:56 Dose: Not Given Losartan Potassium (Cozaar) 50 mg PO DAILY [facility] Last Admin: 11/13/18 09:57 Dose: 50 mg Magnesium Hydroxide (Milk Of Magnesia) 30 ml PO Q4 PRN PRN Reason: Heartburn Potassium Chloride (Potassium Chloride Oral Soln) 20 meq PO DAILY [facility] Stop: 11/17/18 10:01 Sodium Hypochlorite (Dakins Solution 0.5%) 0 ml TOP DAILY [facility] Last Admin: 11/13/18 09:58 Dose: 1 applic - Labs Labs: 11/13/18 07:32 11/13/18 07:32 PT 15.4 SECONDS (9.7-12.2) H 11/10/18 07:21 INR 1.4 11/10/18 07:21 Assessment and Plan (1) MRSA (methicillin resistant staph aureus) culture positive Status: Acute (2) Sacral decubitus ulcer Status: Acute (3) Multiple sclerosis Status: Acute
--- NOTE | 2018-11-13 15:47 | CP.PCM.PN ---
Subjective - Date & Time of Evaluation Date of Evaluation: 11/13/18 Time of Evaluation: 15:47 - Subjective Subjective: CHIEF COMPLAINTS TODAY : afebrile, No complaints S/P 3rd I/D IN OR PER DR TRINIDAD ON 11/12/18 ROS. HEENT : N. Resp : No cough, wheezing ,pleuritic CP ,or hemoptysis Cardio : No anginal CP, PND, orthopnea, palpitation GI : No abd.pain, n/v ,diarrhea or GI bleeding . 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 ULCERS WITH PACKING Psych : Normal affect. Ext : No swelling ,calf pain PE. Pt. is alert awake in no distress. V.S As noted in the chart Head ,ear nose,throat and eyes : Normal. Neck : Supple with normal carotids. Lungs: Clear air entry. Heart : S1 & S2 normal with S4. No murmur. Abd : Soft non tender with normal bowel sounds. Neuro : Moves all ext. with no localized deficit. Ext : No edema with intact pulses.Non tender calves Derm : No rashes SACRAL ULCER , UNSTAGEABLE WITH PACKING SIMILAR ON L. GLUTEAL REGION LABS/RADIOLOGY: REVIEWED WBC 3.8 / VANCO CREAT 0.7 /BUN 10 0N 11/13/18 BLOOD CULTURE 2: 2 SET +VE GPC - SCN ? SKIN SHEILA WOUND CULTURE +VE PROTEUS MIRABILIS S- MERREM/zOSYN/GENTAMICIN AND PSEUDOMONAS AERUGINOSA S- MERREM URINE CULTURE+VE GPC < 10.000ORG /ML ASSESSMENT/PLAN : CONTINUE IV MERREM 1GM IVPB Q8HRLY 11/12/18 PT WILL NEED 6WEEKS OF IV MERREM IN VIEW OF DEEP UNSTAGEABLE SACRAL DEC. ULCERS - CLOSE TO BONE PER SURGERY. START IV GENTAMICIN 200MG IVPB 11/13/18 ONCE F/U 100MG IVPB Q 24HRLY DAILY X 5DAYS 11/14/18 TO 11/18/18 F/U RENAL FUNCTION CLOSELY AND RENAL TOXICITY WOUND CARE PER DR TRINIDAD PT WILL NEED WOUND VAC. PT WILL NEED PICC- LINE IF OK WITH PMD. Objective - Vital Signs/Intake and Output Vital Signs (last 24 hours): Temp Pulse Resp BP Pulse Ox 98.8 F 71 20 127/83 97 04/27/19 07:00 11/13/18 07:00 11/13/18 07:00 11/13/18 07:00 11/13/18 07:00 Intake and Output: 11/13/18 11/13/18 06:59 18:59 Intake Total 1800 Output Total 1250 400 Balance 550 -400 - Medications Medications: Current Medications Diazepam (Valium) 5 mg PO HS [facility] Last Admin: 11/12/18 21:02 Dose: 5 mg Enoxaparin Sodium (Lovenox) 40 mg SC DAILY [facility] Last Admin: 11/13/18 09:57 Dose: 40 mg Famotidine (Pepcid) 20 mg PO HS [facility] Last Admin: 11/12/18 21:03 Dose: 20 mg Lactated Ringer's (Lactated Ringer's) 1,000 mls @ 100 mls/hr IV .Q10H [facility] Last Admin: 11/12/18 21:03 Dose: Not Given Meropenem 1 gm/ Sodium (Chloride) 100 mls @ 100 mls/hr IVPB Q8H [facility]; Protocol Last Admin: 11/13/18 13:27 Dose: 100 mls/hr Lactated Ringer's (Lactated Ringer's) 1,000 mls @ 100 mls/hr IV .Q10H [facility] Last Admin: 11/13/18 11:56 Dose: Not Given Losartan Potassium (Cozaar) 50 mg PO DAILY [facility] Last Admin: 11/13/18 09:57 Dose: 50 mg Magnesium Hydroxide (Milk Of Magnesia) 30 ml PO Q4 PRN PRN Reason: Heartburn Potassium Chloride (Potassium Chloride Oral Soln) 20 meq PO DAILY [facility] Stop: 11/17/18 10:01 Sodium Hypochlorite (Dakins Solution 0.5%) 0 ml TOP DAILY [facility] Last Admin: 11/13/18 09:58 Dose: 1 applic - Labs Labs: 11/13/18 07:32 11/13/18 07:32 PT 15.4 SECONDS (9.7-12.2) H 11/10/18 07:21 INR 1.4 11/10/18 07:21 Assessment and Plan (1) Altered mental status Status: Acute (2) Sacral decubitus ulcer Status: Acute (3) MRSA (methicillin resistant staph aureus) culture positive Status: Acute (4) Multiple sclerosis Status: Acute
[2018-11-14] MEDS: Meropenem 1 GM in Sodium Chloride 0.9% 100 ML IVPB SCH ×3 (05:55→21:21)
[2018-11-14 08:19] LABS: ALBUMIN 2.9 g/dL (3.5-5.0); ALT/SGPT 26 U/L (21-72); AST/SGOT 28 U/L (17-59); BASO % 0.6 % (0.0-2.0); BLOOD UREA NITROGEN 7 mg/dL (9-20); CALCIUM 7.7 mg/dl (8.6-10.4); EOS # 0.2 K/uL (0.0-0.7); EOS % 4.4 % (0.0-4.0); GFR NON-AFRICAN AMERICAN > 60; HEMOGLOBIN 10.2 g/dL (12.0-18.0); LYMPH # 1.4 K/uL (1.0-4.3); LYMPH % 36.6 % (20.0-40.0); MEAN CELL VOLUME 85.2 fL (80.0-94.0); MEAN CORPUSCULAR HEMOGLOBIN 28.2 pg (27.0-31.0); MEAN CORPUSCULAR HGB CONC 33.1 g/dL (33.0-37.0); MEAN PLATELET VOLUME 8.6 fL (7.2-11.7); MONO # 0.2 K/uL (0.0-0.8); MONO % 6.5 % (0.0-10.0); NEUT % 51.9 % (50.0-75.0); RBC 3.62 Mil/uL (4.40-5.90); RED CELL DISTRIBUTION WIDTH 15.2 % (11.5-14.5); WHITE BLOOD COUNT 3.9 K/uL (4.8-10.8)
--- NOTE | 2018-11-14 08:30 | OP ---
PROCEDURE DATE: 11/12/2018 PREOPERATIVE DIAGNOSIS: Sacral and left hip osteomyelitis with decubitus ulcers. POSTOPERATIVE DIAGNOSIS: Sacral and left hip osteomyelitis with decubitus ulcers. PROCEDURE PERFORMED: Re-drainage of sacral and left hip osteomyelitis with debridement of decubiti. SURGEON: Ulices Wesley MD ANESTHESIA: General. ESTIMATED BLOOD LOSS: 40 mL. POSTOPERATIVE CONDITION: Stable. INDICATIONS FOR SURGERY: This is a 63-year-old male, bedridden with MS with 2 large decubitus ulcers, taken back in a stage to debridement to the operating room. GROSS FINDINGS: There was a sacral and left iliac crest decubiti, which extended into bone. The left iliac crest decubiti was debrided down to the bone and a bone biopsy was taken and osteomyelitis was drained. There was also a large sacral polyp removed from the sacral wound. DESCRIPTION OF PROCEDURE: The patient was taken to the operating room, general anesthesia was administered, placed in the right lateral decubitus position. The wounds were prepped and draped. The wounds were again aggressively debrided. Bleeding was controlled using Bovie and larger parasacral blood vessels were repaired. The wound was pulse irrigated with saline and Kantrex solution. A large sacral polyp was removed using the Bovie. Bone biopsy was taken using a rongeur. Bleeding was controlled using the Bovie. Pulse irrigation was performed to both wounds and they were packed open with wet saline gauze. The patient tolerated the procedure well and returned to the recovery room in stable condition. Ulices Wesley MD
[2018-11-14] MEDS: Dakin's Topical 0.5%-Full Strength (480 ml) TOP SCH (09:09)
[2018-11-14] MEDS: Potassium Chloride 20 mEq/15 ml LIQ UD PO SCH (09:09)
[2018-11-14] MEDS: Enoxaparin 40 mg Syringe SC SCH (09:09)
--- NOTE | 2018-11-14 11:57 | CP.PCM.PN ---
Subjective - Date & Time of Evaluation Date of Evaluation: 11/14/18 Time of Evaluation: 11:57 - Subjective Subjective: CHIEF COMPLAINTS TODAY : NO SP COMPLAINTS PT. HAD DEBRIDEMENT SCARAL WOUND IS UPTO SACRAL BONE WITH VISIBLE PUS ROS. HEENT : N. Resp : No cough, wheezing ,pleuritic CP ,or hemoptysis Cardio : No anginal CP, PND, orthopnea, palpitation GI : No abd.pain, n/v ,diarrhea or GI bleeding . CARBON CLEANER : No headache, vertigo, LOWER EXT LOSS OF POWER Musculoskel : No joint swelling , Derm : No rash DU Psych : Normal affect. Ext : No swelling ,calf pain PE. Pt. is alert awake in no distress. V.S As noted in the chart Head ,ear nose,throat and eyes : Normal. Neck : Supple with normal carotids. Lungs: Clear air entry. Heart : S1 & S2 normal with S4. No murmur. Abd : Soft non tender with normal bowel sounds. Neuro : Moves all ext. with no localized deficit. Ext : No edema with intact pulses.Non tender calves Derm : No rashes SACRAL ULCER , UNSTAGEABLE TOUCHING BONE SIMILAR ON L. GLUTEAL REGION LABS/RADIOLOGY: c/s : proteus and p. pseudomonas ASSESSMENT/PLAN : IV AB FOR OM OF SACRAL BON Objective - Vital Signs/Intake and Output Vital Signs (last 24 hours): Temp Pulse Resp BP Pulse Ox 98.2 F 79 20 146/82 97 11/13/18 23:39 11/14/18 09:12 11/13/18 23:39 11/14/18 09:12 11/13/18 23:39 Intake and Output: 11/13/18 11/14/18 23:59 11:59 Output Total 1300 800 Balance -1300 -800 - Medications Medications: Current Medications Diazepam (Valium) 5 mg PO HS [facility] Last Admin: 11/13/18 21:13 Dose: 5 mg Enoxaparin Sodium (Lovenox) 40 mg SC DAILY [facility] Last Admin: 11/14/18 09:09 Dose: 40 mg Famotidine (Pepcid) 20 mg PO HS [facility] Last Admin: 11/13/18 21:13 Dose: 20 mg Meropenem 1 gm/ Sodium (Chloride) 100 mls @ 100 mls/hr IVPB Q8H [facility]; Protocol Last Admin: 11/14/18 05:55 Dose: 100 mls/hr Lactated Ringer's (Lactated Ringer's) 1,000 mls @ 100 mls/hr IV .Q10H [facility] Last Admin: 11/13/18 22:55 Dose: Not Given Losartan Potassium (Cozaar) 50 mg PO DAILY [facility] Last Admin: 11/14/18 09:09 Dose: 50 mg Magnesium Hydroxide (Milk Of Magnesia) 30 ml PO Q4 PRN PRN Reason: Heartburn Potassium Chloride (Potassium Chloride Oral Soln) 20 meq PO DAILY [facility] Stop: 11/17/18 10:01 Last Admin: 11/14/18 09:09 Dose: 20 meq Sodium Hypochlorite (Dakins Solution 0.5%) 0 ml TOP DAILY [facility] Last Admin: 11/14/18 09:09 Dose: 1 applic - Labs Labs: 11/14/18 07:00 11/14/18 07:00 PT 15.4 SECONDS (9.7-12.2) H 11/10/18 07:21 INR 1.4 11/10/18 07:21 Assessment and Plan (1) MRSA (methicillin resistant staph aureus) culture positive Status: Acute (2) Sacral decubitus ulcer Status: Acute (3) Multiple sclerosis Status: Acute
[2018-11-14] MEDS: Potassium Chloride 10 mEq ER Tab PO SCH ×2 (12:31→20:25)
[2018-11-14] MEDS: Lactated Ringer's 1,000 ML IV SCH (21:23)
[2018-11-15] MEDS: Lactated Ringer's 1,000 ML IV SCH ×3 (04:00→13:55)
[2018-11-15] MEDS: Potassium Chloride 10 mEq ER Tab PO SCH ×3 (04:13→20:55)
[2018-11-15] MEDS: Meropenem 1 GM in Sodium Chloride 0.9% 100 ML IVPB SCH ×3 (06:25→21:35)
[2018-11-15 07:46] LABS: BASO % 0.7 % (0.0-2.0); EOS # 0.2 K/uL (0.0-0.7); EOS % 4.3 % (0.0-4.0); HEMOGLOBIN 10.3 g/dL (12.0-18.0); LYMPH # 1.7 K/uL (1.0-4.3); LYMPH % 41.3 % (20.0-40.0); MEAN CELL VOLUME 85.1 fL (80.0-94.0); MEAN CORPUSCULAR HEMOGLOBIN 28.1 pg (27.0-31.0); MEAN PLATELET VOLUME 8.6 fL (7.2-11.7); MONO # 0.3 K/uL (0.0-0.8); MONO % 6.9 % (0.0-10.0); NEUT # 1.9 K/uL (1.8-7.0); NEUT % 46.8 % (50.0-75.0); RBC 3.68 Mil/uL (4.40-5.90); RED CELL DISTRIBUTION WIDTH 15.4 % (11.5-14.5)
[2018-11-15 07:57] LABS: ALT/SGPT 28 U/L (21-72); AST/SGOT 25 U/L (17-59); BLOOD UREA NITROGEN 7 mg/dL (9-20); CALCIUM 7.8 mg/dl (8.6-10.4); GFR NON-AFRICAN AMERICAN > 60
[2018-11-15] MEDS: Enoxaparin 40 mg Syringe SC SCH (09:50)
[2018-11-15] MEDS: Dakin's Topical 0.5%-Full Strength (480 ml) TOP SCH (09:51)
[2018-11-15] MEDS: Potassium Chloride 20 mEq/15 ml LIQ UD PO SCH (09:52)
--- NOTE | 2018-11-15 11:54 | CP.PCM.PN ---
Subjective - Date & Time of Evaluation Date of Evaluation: 11/15/18 Time of Evaluation: 11:54 - Subjective Subjective: CHIEF COMPLAINTS TODAY : afebrile, No complaints events noted. +ve wound VAC PER SURGERY S/P 3rd I/D [place] PER DR TRINIDAD ON 11/12/18 ROS. HEENT : N. Resp : No cough, wheezing ,pleuritic CP ,or hemoptysis Cardio : No anginal CP, PND, orthopnea, palpitation GI : No abd.pain, n/v ,diarrhea or GI bleeding . 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 ULCERS Psych : Normal affect. Ext : No swelling ,calf pain PE. Pt. is alert awake in no distress. V.S As noted in the chart Head ,ear nose,throat and eyes : Normal. Neck : Supple with normal carotids. Lungs: Clear air entry. Heart : S1 & S2 normal with S4. No murmur. Abd : Soft non tender with normal bowel sounds. Neuro : Moves all ext. with no localized deficit. Ext : No edema with intact pulses.Non tender calves Derm : No rashes SACRAL ULCER , UNSTAGEABLE WITH WOUND VAC SIMILAR ON L. GLUTEAL REGION LABS/RADIOLOGY: REVIEWED WBC 3.8 / VANCO CREAT 0.7 /BUN 10 0N 11/13/18 REPEAT BLOOD CULTURES 11/13/18 -VE GROWTH X V24HRS. BLOOD CULTURE 2: 2 SET +VE GPC - SCN ? SKIN SHEILA WOUND CULTURE +VE PROTEUS MIRABILIS S- MERREM/zOSYN/GENTAMICIN AND PSEUDOMONAS AERUGINOSA S- MERREM URINE CULTURE+VE GPC < 10.000ORG /ML ASSESSMENT/PLAN : CONTINUE IV MERREM 1GM IVPB Q8HRLY 11/12/18 PT WILL NEED 6WEEKS OF IV MERREM IN VIEW OF DEEP UNSTAGEABLE SACRAL DEC. ULCERS - CLOSE TO BONE PER SURGERY. START IV GENTAMICIN 200MG IVPB 11/13/18 ONCE F/U 100MG IVPB Q 24HRLY DAILY X 5DAYS 11/15/18 TO 11/19/18 F/U RENAL FUNCTION CLOSELY AND RENAL TOXICITY WOUND CARE PER DR TRINIDAD PT WILL NEED WOUND VAC. PICC LINE CARE PER PMD Objective - Vital Signs/Intake and Output Vital Signs (last 24 hours): Temp Pulse Resp BP Pulse Ox 98 F 60 20 143/75 98 11/15/18 08:00 11/15/18 08:00 11/15/18 08:00 11/15/18 08:00 11/15/18 08:00 Intake and Output: 11/15/18 11/15/18 06:59 18:59 Output Total 400 Balance -400 - Medications Medications: Current Medications Diazepam (Valium) 5 mg PO HS [facility] Last Admin: 11/14/18 21:22 Dose: 5 mg Enoxaparin Sodium (Lovenox) 40 mg SC DAILY [facility] Last Admin: 11/15/18 09:50 Dose: 40 mg Famotidine (Pepcid) 20 mg PO HS [facility] Last Admin: 11/14/18 21:22 Dose: 20 mg Meropenem 1 gm/ Sodium (Chloride) 100 mls @ 100 mls/hr IVPB Q8H [facility]; Protocol Last Admin: 11/15/18 06:25 Dose: 100 mls/hr Lactated Ringer's (Lactated Ringer's) 1,000 mls @ 100 mls/hr IV .Q10H [facility] Last Admin: 11/14/18 21:23 Dose: 100 mls/hr Gentamicin Sulfate 100 mg/ (Sodium Chloride) 102.5 mls @ 100 mls/hr IVPB Q24H [facility]; Protocol Stop: 11/20/18 12:01 Losartan Potassium (Cozaar) 50 mg PO DAILY [facility] Last Admin: 11/15/18 09:50 Dose: 50 mg Magnesium Hydroxide (Milk Of Magnesia) 30 ml PO Q4 PRN PRN Reason: Heartburn Potassium Chloride (Potassium Chloride Oral Soln) 20 meq PO DAILY [facility] Stop: 11/17/18 10:01 Last Admin: 11/15/18 09:52 Dose: 20 meq Potassium Chloride (Klor-Con 10) 10 meq PO Q8H [facility] Last Admin: 11/15/18 04:13 Dose: 10 meq Sodium Hypochlorite (Dakins Solution 0.5%) 0 ml TOP DAILY [facility] Last Admin: 11/15/18 09:51 Dose: 1 applic - Labs Labs: 11/15/18 07:36 11/15/18 07:36 PT 15.4 SECONDS (9.7-12.2) H 11/10/18 07:21 INR 1.4 11/10/18 07:21 Assessment and Plan (1) Altered mental status Status: Acute (2) Sacral decubitus ulcer Status: Acute (3) MRSA (methicillin resistant staph aureus) culture positive Status: Acute (4) Multiple sclerosis Status: Acute
--- NOTE | 2018-11-15 12:05 | CP.PCM.PN ---
Subjective - Date & Time of Evaluation Date of Evaluation: 11/15/18 Time of Evaluation: 12:05 - Subjective Subjective: CHIEF COMPLAINTS TODAY : NO SP COMPLAINTS PT. HAD DEBRIDEMENT SCARAL WOUND IS UPTO SACRAL BONE WITH VISIBLE PUS ROS. HEENT : N. Resp : No cough, wheezing ,pleuritic CP ,or hemoptysis Cardio : No anginal CP, PND, orthopnea, palpitation GI : No abd.pain, n/v ,diarrhea or GI bleeding . 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 Ext : No swelling ,calf pain PE. Pt. is alert awake in no distress. V.S As noted in the chart Head ,ear nose,throat and eyes : Normal. Neck : Supple with normal carotids. Lungs: Clear air entry. Heart : S1 & S2 normal with S4. No murmur. Abd : Soft non tender with normal bowel sounds. Neuro : Moves all ext. with no localized deficit. Ext : No edema with intact pulses.Non tender calves Derm : No rashes SACRAL ULCER , UNSTAGEABLE TOUCHING BONE SIMILAR ON L. GLUTEAL REGION LABS/RADIOLOGY: c/s : proteus and p. pseudomonas ASSESSMENT/PLAN : IV AB FOR OM OF SACRAL BONE Objective - Vital Signs/Intake and Output Vital Signs (last 24 hours): Temp Pulse Resp BP Pulse Ox 98 F 60 20 143/75 98 11/15/18 08:00 11/15/18 08:00 11/15/18 08:00 11/15/18 08:00 11/15/18 08:00 - Medications Medications: Current Medications Diazepam (Valium) 5 mg PO HS [facility] Last Admin: 11/14/18 21:22 Dose: 5 mg Enoxaparin Sodium (Lovenox) 40 mg SC DAILY [facility] Last Admin: 11/15/18 09:50 Dose: 40 mg Famotidine (Pepcid) 20 mg PO HS [facility] Last Admin: 11/14/18 21:22 Dose: 20 mg Meropenem 1 gm/ Sodium (Chloride) 100 mls @ 100 mls/hr IVPB Q8H [facility]; Protocol Last Admin: 11/15/18 06:25 Dose: 100 mls/hr Lactated Ringer's (Lactated Ringer's) 1,000 mls @ 100 mls/hr IV .Q10H [facility] Last Admin: 11/15/18 12:03 Dose: 100 mls/hr Gentamicin Sulfate 100 mg/ (Sodium Chloride) 102.5 mls @ 100 mls/hr IVPB Q24H [facility]; Protocol Stop: 11/20/18 14:01 Losartan Potassium (Cozaar) 50 mg PO DAILY [facility] Last Admin: 11/15/18 09:50 Dose: 50 mg Magnesium Hydroxide (Milk Of Magnesia) 30 ml PO Q4 PRN PRN Reason: Heartburn Potassium Chloride (Potassium Chloride Oral Soln) 20 meq PO DAILY [facility] Stop: 11/17/18 10:01 Last Admin: 11/15/18 09:52 Dose: 20 meq Potassium Chloride (Klor-Con 10) 10 meq PO Q8H [facility] Last Admin: 11/15/18 12:01 Dose: 10 meq Sodium Hypochlorite (Dakins Solution 0.5%) 0 ml TOP DAILY [facility] Last Admin: 11/15/18 09:51 Dose: 1 applic - Labs Labs: 11/15/18 07:36 11/15/18 07:36 PT 15.4 SECONDS (9.7-12.2) H 11/10/18 07:21 INR 1.4 11/10/18 07:21 Assessment and Plan (1) MRSA (methicillin resistant staph aureus) culture positive Status: Acute (2) Sacral decubitus ulcer Status: Acute (3) Multiple sclerosis Status: Acute
--- NOTE | 2018-11-15 15:27 | RAD ---
Date of service: 11/15/2018 HISTORY: verify right PICC COMPARISON: 11/08/2018 FINDINGS: The right PICC line terminates at the cavoatrial junction. LUNGS: There are low lung volumes. There is subsegmental atelectasis in the right perihilar region. PLEURA: No pleural effusions or pneumothorax. CARDIOVASCULAR: The heart is normal in size. No aortic atherosclerotic calcifications present. OSSEOUS STRUCTURES: Within normal limits for the patient's age. VISUALIZED UPPER ABDOMEN: Normal. OTHER FINDINGS: None. IMPRESSION: Right PICC line terminates at the cavoatrial junction. No acute findings.
[2018-11-16] MEDS: Lactated Ringer's 1,000 ML IV SCH (00:02)
[2018-11-16] MEDS: Potassium Chloride 10 mEq ER Tab PO SCH ×2 (04:50→13:52)
[2018-11-16] MEDS: Meropenem 1 GM in Sodium Chloride 0.9% 100 ML IVPB SCH ×2 (07:08→14:58)
[2018-11-16 08:16] LABS: BASO % 0.8 % (0.0-2.0); EOS # 0.2 K/uL (0.0-0.7); EOS % 4.4 % (0.0-4.0); HEMOGLOBIN 10.3 g/dL (12.0-18.0); LYMPH # 1.9 K/uL (1.0-4.3); LYMPH % 44.1 % (20.0-40.0); MEAN CELL VOLUME 84.7 fL (80.0-94.0); MEAN CORPUSCULAR HEMOGLOBIN 27.6 pg (27.0-31.0); MEAN CORPUSCULAR HGB CONC 32.6 g/dL (33.0-37.0); MEAN PLATELET VOLUME 8.6 fL (7.2-11.7); MONO # 0.3 K/uL (0.0-0.8); MONO % 6.9 % (0.0-10.0); NEUT # 1.9 K/uL (1.8-7.0); NEUT % 43.8 % (50.0-75.0); NRBC % 0.1 % (0.0-2.0); RBC 3.75 Mil/uL (4.40-5.90); RED CELL DISTRIBUTION WIDTH 15.5 % (11.5-14.5); WHITE BLOOD COUNT 4.4 K/uL (4.8-10.8)
[2018-11-16 08:55] LABS: ALT/SGPT 22 U/L (21-72); AST/SGOT 29 U/L (17-59); BLOOD UREA NITROGEN 6 mg/dL (9-20); CALCIUM 8.1 mg/dl (8.6-10.4); GFR NON-AFRICAN AMERICAN > 60
[2018-11-16] MEDS: Enoxaparin 40 mg Syringe SC SCH (11:03)
[2018-11-16] MEDS: Potassium Chloride 20 mEq/15 ml LIQ UD PO SCH (11:03)
[2018-11-16] MEDS: Dakin's Topical 0.5%-Full Strength (480 ml) TOP SCH (11:04)
--- NOTE | 2018-11-16 11:33 | CP.PCM.PN ---
Subjective - Date & Time of Evaluation Date of Evaluation: 11/16/18 Time of Evaluation: 11:33 - Subjective Subjective: CHIEF COMPLAINTS TODAY : afebrile, No complaints events noted. +ve wound VAC PER SURGERY S/P 3rd I/D IN [place] PER DR TRINIDAD ON 11/12/18 PT FOR GABY TODAY ROS. HEENT : N. Resp : No cough, wheezing ,pleuritic CP ,or hemoptysis Cardio : No anginal CP, PND, orthopnea, palpitation GI : No abd.pain, n/v ,diarrhea or GI bleeding . 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 ULCERS Psych : Normal affect. Ext : No swelling ,calf pain PE. Pt. is alert awake in no distress. V.S As noted in the chart Head ,ear nose,throat and eyes : Normal. Neck : Supple with normal carotids. Lungs: Clear air entry. Heart : S1 & S2 normal with S4. No murmur. Abd : Soft non tender with normal bowel sounds. Neuro : Moves all ext. with no localized deficit. Ext : No edema with intact pulses.Non tender calves Derm : No rashes SACRAL ULCER , UNSTAGEABLE WITH WOUND VAC SIMILAR ON L. GLUTEAL REGION LABS/RADIOLOGY: REVIEWED WBC 4.4 CREAT 0.7 /BUN 10 STABLE REPEAT BLOOD CULTURES 11/13/18 -VE GROWTH X V24HRS. BLOOD CULTURE 2: 2 SET +VE GPC - SCN ? SKIN SHEILA WOUND CULTURE +VE PROTEUS MIRABILIS S- MERREM/zOSYN/GENTAMICIN AND PSEUDOMONAS AERUGINOSA S- MERREM URINE CULTURE+VE GPC < 10.000ORG /ML ASSESSMENT/PLAN : CONTINUE IV MERREM 1GM IVPB Q8HRLY 11/12/18 PT WILL NEED 6WEEKS OF IV MERREM IN VIEW OF DEEP UNSTAGEABLE SACRAL DEC. ULCERS - CLOSE TO BONE PER SURGERY. CONTINUE IV GENTAMICIN 200MG IVPB 11/13/18 ONCE F/U 100MG IVPB Q 24HRLY DAILY X 5DAYS 11/15/18 TO 11/19/18 F/U RENAL FUNCTION CLOSELY AND RENAL TOXICITY WOUND CARE PER SURGERY. I WILL F/U PT WHILE IN HOSPITAL. Objective - Vital Signs/Intake and Output Vital Signs (last 24 hours): Temp Pulse Resp BP Pulse Ox 98.0 F 67 20 134/84 98 11/16/18 08:26 11/16/18 08:26 11/16/18 08:26 11/16/18 08:26 11/16/18 08:26 Intake and Output: 11/16/18 11/16/18 06:59 18:59 Intake Total 650 Output Total 1850 Balance -1850 650 - Medications Medications: Current Medications Diazepam (Valium) 5 mg PO HS [facility] Last Admin: 11/15/18 21:35 Dose: 5 mg Famotidine (Pepcid) 20 mg PO HS [facility] Last Admin: 11/15/18 21:35 Dose: 20 mg Meropenem 1 gm/ Sodium (Chloride) 100 mls @ 100 mls/hr IVPB Q8H [facility]; Protocol Last Admin: 11/16/18 07:08 Dose: 100 mls/hr Gentamicin Sulfate 100 mg/ (Sodium Chloride) 102.5 mls @ 100 mls/hr IVPB Q24H [facility]; Protocol Stop: 11/20/18 14:01 Last Admin: 11/15/18 14:08 Dose: 100 mls/hr Losartan Potassium (Cozaar) 50 mg PO DAILY [facility] Last Admin: 11/16/18 11:03 Dose: 50 mg Magnesium Hydroxide (Milk Of Magnesia) 30 ml PO Q4 PRN PRN Reason: Heartburn Potassium Chloride (Potassium Chloride Oral Soln) 20 meq PO DAILY [facility] Stop: 11/17/18 10:01 Last Admin: 11/16/18 11:03 Dose: 20 meq Potassium Chloride (Klor-Con 10) 10 meq PO Q8H [facility] Last Admin: 11/16/18 04:50 Dose: 10 meq Sodium Hypochlorite (Dakins Solution 0.5%) 0 ml TOP DAILY [facility] Last Admin: 11/16/18 11:04 Dose: Not Given - Labs Labs: 11/16/18 08:09 11/16/18 08:09 PT 15.4 SECONDS (9.7-12.2) H 11/10/18 07:21 INR 1.4 11/10/18 07:21 Assessment and Plan (1) Altered mental status Status: Acute (2) Sacral decubitus ulcer Status: Acute (3) MRSA (methicillin resistant staph aureus) culture positive Status: Acute (4) Multiple sclerosis Status: Acute
--- NOTE | 2018-11-16 12:13 | CP.PCM.DIS ---
Provider - Provider Date of Admission: 11/10/18 10:24 Attending physician: Dayanara Bhat MD Consults: 11/08/18 17:38 General Surgery Consult Routine Comment: *REQUESTED BY PMD Consulting Provider: Ulices Wesley Consulting Physician: Ulices Wesley Reason for Consult: INFECTED PRESSURE ULCER 11/08/18 19:44 Infectious Disease Consult Routine Comment: Consulting Provider: Sally Kinney Consulting Physician: Sally Kinney Reason for Consult: sepsis 11/08/18 22:57 Nursing Referral for Wound Care Routine Comment: gluteal area Physician Instructions: Reason For Exam: stage four sacral wound and unstageable woundleft 11/08/18 23:27 Nursing Referral for Wound Care Routine Comment: Physician Instructions: Reason For Exam: pressure ulcer in sacral area and gluteal area 11/10/18 15:25 Nursing Referral for Palliative Care Routine Comment: Physician Instructions: Reason For Exam: Bedridden MS Nursing Referral for Wound Care Routine Comment: Physician Instructions: Reason For Exam: sacral ulcer 11/12/18 15:37 Discharge Planning [Case Management Referral] Routine Comment: Physician Instructions: Reason For Exam: transfer back to [place] with air mattress and woundVac Reason for Referral: Discharge Planning Time Spent in preparation of Discharge (in minutes): 35 Diagnosis - Discharge Diagnosis (1) MRSA (methicillin resistant staph aureus) culture positive Status: Acute (2) Sacral decubitus ulcer Status: Acute (3) Multiple sclerosis Status: Acute Hospital Course - Lab Results Lab Results: Micro Results 11/13/18 06:00 Blood-Venous Blood Culture - Preliminary NO GROWTH AFTER 48 HOURS 11/13/18 06:30 Blood-Venous Blood Culture - Preliminary NO GROWTH AFTER 48 HOURS 11/10/18 08:07 Sacral Gram Stain - Final 11/10/18 08:07 Sacral Wound Culture - Final Proteus Mirabilis Pseudomonas Aeruginosa 11/10/18 08:07 Other: Please Indicate Gram Stain - Final 11/10/18 08:07 Other: Please Indicate Wound Culture - Final Proteus Mirabilis Pseudomonas Aeruginosa 11/08/18 22:26 Sacral Gram Stain - Final 11/08/18 22:26 Sacral Wound Culture - Final Proteus Mirabilis Pseudomonas Aeruginosa 11/08/18 17:55 Blood S.aureus & Coag-Neg Staph PNA FISH - Final 11/08/18 17:55 Blood Blood Culture - Final Coagulase Neg Staphylococcus 11/08/18 17:55 Blood Gram Stain - Final 11/08/18 17:35 Blood Blood Culture - Final Coagulase Neg Staphylococcus 11/08/18 17:35 Blood Gram Stain - Final 11/09/18 04:21 Naris MRSA Culture (Admit) - Final MRSA NOT DETECTED 11/09/18 01:32 Urine,Clean Catch Urine Culture - Final Gram Positive Cocci Most Recent Lab Values WBC 4.4 K/uL (4.8-10.8) L 11/16/18 08:09 RBC 3.75 Mil/uL (4.40-5.90) L 11/16/18 08:09 Hgb 10.3 g/dL (12.0-18.0) L 11/16/18 08:09 Hct 31.7 % (35.0-51.0) L 11/16/18 08:09 MCV 84.7 fL (80.0-94.0) 11/16/18 08:09 MCH 27.6 pg (27.0-31.0) 11/16/18 08:09 MCHC 32.6 g/dL (33.0-37.0) L 11/16/18 08:09 RDW 15.5 % (11.5-14.5) H 11/16/18 08:09 Plt Count 312 K/uL (130-400) 11/16/18 08:09 MPV 8.6 fL (7.2-11.7) 11/16/18 08:09 Neut % (Auto) 43.8 % (50.0-75.0) L 11/16/18 08:09 Lymph % (Auto) 44.1 % (20.0-40.0) H 11/16/18 08:09 [place] % (Auto) 6.9 % (0.0-10.0) 11/16/18 08:09 Eos % (Auto) 4.4 % (0.0-4.0) H 11/16/18 08:09 Baso % (Auto) 0.8 % (0.0-2.0) 11/16/18 08:09 Neut # (Auto) 1.9 K/uL (1.8-7.0) 11/16/18 08:09 Lymph # (Auto) 1.9 K/uL (1.0-4.3) 11/16/18 08:09 [place] # (Auto) 0.3 K/uL (0.0-0.8) 11/16/18 08:09 Eos # (Auto) 0.2 K/uL (0.0-0.7) 11/16/18 08:09 Baso # (Auto) 0.0 K/uL (0.0-0.2) 11/16/18 08:09 PT 15.4 SECONDS (9.7-12.2) H 11/10/18 07:21 INR 1.4 11/10/18 07:21 Sodium 140 mmol/L (132-148) 11/16/18 08:09 Potassium 3.8 mmol/L (3.6-5.2) 11/16/18 08:09 Chloride 104 mmol/L (98-107) 11/16/18 08:09 Carbon Dioxide 31 mmol/L (22-30) H 11/16/18 08:09 Anion Gap 9 (10-20) L 11/16/18 08:09 BUN 6 mg/dL (9-20) L 11/16/18 08:09 Creatinine 0.7 mg/dL (0.8-1.5) L 11/16/18 08:09 Est GFR ( Amer) > 60 11/16/18 08:09 Est GFR (Non-Af Amer) > 60 11/16/18 08:09 POC Glucose (mg/dL) 77 mg/dL (65-110) 11/14/18 06:01 Random Glucose 81 mg/dL (75-110) 11/16/18 08:09 Calcium 8.1 mg/dl (8.6-10.4) L 11/16/18 08:09 Total Bilirubin 0.4 mg/dL (0.2-1.3) 11/16/18 08:09 AST 29 U/L (17-59) 11/16/18 08:09 ALT 22 U/L (21-72) 11/16/18 08:09 Alkaline Phosphatase 49 U/L (38-126) 11/16/18 08:09 Total Protein 6.2 g/dL (6.3-8.3) L 11/16/18 08:09 Albumin 3.0 g/dL (3.5-5.0) L 11/16/18 08:09 Globulin 3.2 gm/dL (2.2-3.9) 11/16/18 08:09 Albumin/Globulin Ratio 1.0 (1.0-2.1) 11/16/18 08:09 Urine Color Yellow (YELLOW) 11/09/18 01:32 Urine Clarity Hazy (Clear) 11/09/18 01:32 Urine pH 5.0 (5.0-8.0) 11/09/18 01:32 Ur Specific [place] 1.026 (1.003-1.030) 11/09/18 01:32 Urine Protein 1+ mg/dL (NEGATIVE) H 11/09/18 01:32 Urine Glucose (UA) Normal mg/dL (Normal) 11/09/18 01:32 Urine Ketones Negative mg/dL (NEGATIVE) 11/09/18 01:32 Urine Blood Negative (NEGATIVE) 11/09/18 01:32 Urine Nitrate Negative (NEGATIVE) 11/09/18 01:32 Urine Bilirubin Negative (NEGATIVE) 11/09/18 01:32 Urine Urobilinogen 4.0 mg/dL (0.2-1.0) 11/09/18 01:32 Ur Leukocyte Esterase Neg [place]/uL (Negative) 11/09/18 01:32 Urine WBC (Auto) 4 /hpf (0-5) 11/09/18 01:32 Urine RBC (Auto) 3 /hpf (0-3) 11/09/18 01:32 Ur Squamous Epith Cells 1 /hpf (0-5) 11/09/18 01:32 Vancomycin Trough 7.0 ug/mL (5.0-10.0) 11/10/18 11:59 - Hospital Course Hospital Course: PT. WAS BEING TREATED IN [place] BY WOUND CARE MD FOR DECUBITUS ULCER WITHOUT ANY IMPROVEMENT. THE ULCER HAS BECOME UNSTAGEABLE AND EXTENDING TO BONE . THERE FAILED ATTEMPTS FOR DE[place]IDEMENT IN [place] PT IS OVER WT AND HAS MS , BED RIDDEN WITH NO POWER IN LOWER AND NOW UPPER EXT PT HAS ANXIETY /HTN AND HAS BEEN TREATED IN [place] FOR UTI PT WAS TRANSFERRED TO FOR DEBRIDEMENT IN [place] AND IV AB C/S OF WOUND IN [place] SHOWED MRSA AND PEUDOMONAS ID/SURGERY CONSULT PT WENT TO [place] 3 TIMES FOR DEBRIDEMENT NOW HAS WOUND WAKE C/S : PROT AND PSEUDO PICC LINE FOR IV AB RT [place] Discharge Exam - Head Exam Head Exam: ATRAUMATIC, NORMAL INSPECTION, NORMOCEPHALIC Discharge Plan - Follow Up Plan Condition: STABLE Disposition: HOME/ ROUTINE Instructions: Pressure Sores (DC), How to Prevent Pressure Sores Referrals: Sally Kinney MD [Staff Provider] - Dayanara Bhat MD [Staff Provider] - Ulices Wesley MD [Staff Provider] -
[2018-11-16 15:44] VITALS: BP 135/82; PULSE 69; TEMP 97.8; O2SAT 97
== END 2018-11-16 17:46 | disposition home or self-care (01) | DRG 570 ==
LOC: C.ER 16:44 → C.9E 17:37 → C.3T 20:02 → C.9E 20:09 → C.3T 20:29 → C.5S 11-09 09:20 → OBSVTOIN 11-10 10:24
PROVIDERS: ADMIT Internal Medicine Cardiovascular Disease; ATTEND Internal Medicine Cardiovascular Disease
PROC: 0Q9 Lower Bones, Drainage (ICD-10-PCS; 2018-11-10)
PROC: 0JBM0ZZ Excision of Left Upper Leg Subcutaneous Tissue and Fascia, Open Approach (ICD-10-PCS; 2018-11-10)
PROC: 0W9H0ZZ Drainage of Retroperitoneum, Open Approach (ICD-10-PCS; 2018-11-10)
PROC: 0JB70ZX Excision of Back Subcutaneous Tissue and Fascia, Open Approach, Diagnostic (ICD-10-PCS; 2018-11-10)
PROC: 0JB70ZZ Excision of Back Subcutaneous Tissue and Fascia, Open Approach (ICD-10-PCS; principal; 2018-11-10 11:00)
PROC: 0Q9 Lower Bones, Drainage (ICD-10-PCS; 2018-11-11)
PROC: 0JB70ZZ Excision of Back Subcutaneous Tissue and Fascia, Open Approach (ICD-10-PCS; 2018-11-11)
PROC: 0Q9 Lower Bones, Drainage (ICD-10-PCS; 2018-11-12)
PROC: 0JB70ZZ Excision of Back Subcutaneous Tissue and Fascia, Open Approach (ICD-10-PCS; 2018-11-12)
DX: L89.154 Pressure ulcer of sacral region, stage 4 (principal); M46.28 Osteomyelitis of vertebra, sacral and sacrococcygeal region; L02.214 Cutaneous abscess of groin; L89.223 Pressure ulcer of left hip, stage 3; K68.19 Other retroperitoneal abscess; M79.9 Soft tissue disorder, unspecified; G35 Multiple sclerosis; I10 Essential (primary) hypertension; K21.9 Gastro-esophageal reflux disease without esophagitis; L89.892 Pressure ulcer of other site, stage 2; F41.9 Anxiety disorder, unspecified; R41.82 Altered mental status, unspecified; B95.62 Methicillin resistant Staphylococcus aureus infection as the cause of diseases classified elsewhere; G40.909 Epilepsy, unspecified, not intractable, without status epilepticus; Z87.440 Personal history of urinary (tract) infections; Z86.14 Personal history of Methicillin resistant Staphylococcus aureus infection; Z74.01 Bed confinement status

== ENCOUNTER 2018-11-24 09:31 | Inpatient (IN) | payer MEDICARE, MEDICAID ==
[2018-11-24 10:30] VITALS: BMI 32.0
[2018-11-24 12:01] LABS: BASO % 0.4 % (0.0-2.0); EOS # 0.2 K/uL (0.0-0.7); EOS % 2.7 % (0.0-4.0); LYMPH % 27.8 % (20.0-40.0); MEAN CELL VOLUME 84.7 fL (80.0-94.0); MEAN CORPUSCULAR HEMOGLOBIN 27.7 pg (27.0-31.0); MEAN CORPUSCULAR HGB CONC 32.7 g/dL (33.0-37.0); MONO # 0.7 K/uL (0.0-0.8); MONO % 9.5 % (0.0-10.0); NEUT # 4.4 K/uL (1.8-7.0); NEUT % 59.6 % (50.0-75.0); NRBC % 0.1 % (0.0-2.0); RBC 4.52 Mil/uL (4.40-5.90); RED CELL DISTRIBUTION WIDTH 15.9 % (11.5-14.5)
[2018-11-24 12:02] LABS: HEMOGLOBIN 12.5 g/dL (12.0-18.0); WHITE BLOOD COUNT 7.3 K/uL (4.8-10.8)
[2018-11-24 12:12] LABS: INR 1.4
[2018-11-24 12:16] LABS: BLOOD UREA NITROGEN 22 mg/dL (9-20); CALCIUM 8.2 mg/dl (8.6-10.4); GFR NON-AFRICAN AMERICAN > 60
--- NOTE | 2018-11-24 14:10 | CP.PCM.HP ---
History of Present Illness - History of Present Illness History of Present Illness: PT IS READMITTED FOR FURTHER DEBRIDEMENT OF SACRAL WOUND PT HAS STAGE 4 SCARAL WOUND AND AFTER 3 OR DEBRIDEMENT STILL HAS PUS OOZING FROM WOUND . ALSO HAS SACRAL OM ON IV AB WOUND C/S LAST WEEK WAS POS FOR PROTEUS AND PSEUDOMONAS PT IS BED BOUND DUE TO MS AND HAS SELF INHIBITION TO MOVE TO CHAIR IN [place] Present on Admission - Present on Admission Any Indicators Present on Admission: Yes History of DVT/PE: No History of Uncontrolled Diabetes: No Urinary Catheter: No Decubitus Ulcer Present: Yes Decubitus Ulcer Stage: Unstageable Review of Systems - Review of Systems All systems: reviewed and no additional remarkable complaints except (NO SP COMPLAINTS) Past Patient History - Infectious Disease Hx of Infectious Diseases: MRSA - Past Medical History & Family History Past Medical History?: Yes - Past Social History Smoking Status: Unknown If Ever Smoked - CARDIAC Hx Pacemaker: No - PULMONARY Hx Asthma: No Hx Bronchitis: No Hx Chronic Obstructive Pulmonary Disease (COPD): No Hx Emphysema: No Hx Pneumonia: No Hx Pulmonary Embolism: No Hx Sleep Apnea: No - NEUROLOGICAL Hx Alzheimer's Disease: No Hx Dementia: No Hx Migraine: No Hx Multiple Sclerosis: Yes Hx Parkinson's Disease: No Hx Seizures: Yes Hx Transient Ischemic Attacks (TIA): No - HEENT Hx HEENT Problems: No Hx Blind: No Hx Cataracts: No Hx Deafness: No Hx Difficulty Chewing: No Hx Epistaxis: No Hx Glaucoma: No Hx Macular Degeneration: No - RENAL Hx Chronic Kidney Disease: No Hx Kidney Stones: No - ENDOCRINE/METABOLIC Hx Hyperthyroidism: No Hx Hypothyroidism: No - HEMATOLOGICAL/ONCOLOGICAL Hx Cancer: No - INTEGUMENTARY Hx Dermatological Problems: Yes Other/Comment: left buttocks pressure ulcer, two open areas - MUSCULOSKELETAL/RHEUMATOLOGICAL Hx Falls: No - GASTROINTESTINAL Hx Gastrointestinal Disorders: Yes Hx Gastroesophageal Reflux: Yes - GENITOURINARY/GYNECOLOGICAL Hx Genitourinary Disorders: No - PSYCHIATRIC Hx Substance Use: No - SURGICAL HISTORY Hx Mastectomy: No - ANESTHESIA Hx Anesthesia: No (unable to obtain info from patient) Meds Allergies/Adverse Reactions: Allergies Allergy/AdvReac Type Severity Reaction Status Date / Time No Known Allergies Allergy Verified 11/24/18 10:22 Physical Exam - Constitutional Appears: Well - Head Exam Head Exam: ATRAUMATIC, NORMAL INSPECTION, NORMOCEPHALIC - Eye Exam Eye Exam: EOMI, Normal appearance, PERRL - Respiratory Exam Respiratory Exam: Clear to Auscultation Bilateral, NORMAL BREATHING PATTERN - Cardiovascular Exam Cardiovascular Exam: REGULAR RHYTHM - GI/Abdominal Exam GI & Abdominal Exam: Normal Bowel Sounds, Soft. absent: Tenderness - Rectal Exam Rectal Exam: Deferred - Extremities Exam Extremities exam: Negative for: calf tenderness, pedal edema - Back Exam Back exam: CVA tenderness (R) (STG 4 SACRAL DECIBITUS ). absent: CVA tenderness (L) - Neurological Exam Additional comments: NO POWER LOWER EXT AND MILD WEAKNESS UPPER EXT Results - Labs Result Diagrams: 11/24/18 11:58 11/24/18 11:58 Labs: Laboratory Results - last 24 hr 11/24/18 11/24/18 11/24/18 11:58 11:58 11:58 WBC 7.3 D RBC 4.52 Hgb 12.5 D Hct 38.3 MCV 84.7 MCH 27.7 MCHC 32.7 L RDW 15.9 H Plt Count 297 MPV 9.0 Neut % (Auto) 59.6 Lymph % (Auto) 27.8 [place] % (Auto) 9.5 Eos % (Auto) 2.7 Baso % (Auto) 0.4 Neut # (Auto) 4.4 Lymph # (Auto) 2.0 [place] # (Auto) 0.7 Eos # (Auto) 0.2 Baso # (Auto) 0.0 PT 15.0 H INR 1.4 APTT 39.0 H Sodium 141 Potassium 3.4 L Chloride 99 Carbon Dioxide 32 H Anion Gap 14 BUN 22 H Creatinine 0.6 L Est GFR ( Amer) > 60 Est GFR (Non-Af Amer) > 60 Random Glucose 130 H D Calcium 8.2 L Assessment & Plan (1) Sacral decubitus ulcer Status: Acute Comment: PER SURGERY. IC AB (2) Multiple sclerosis Status: Acute
[2018-11-24] MEDS ORDERED: Vancomycin 1 GM 1 GM/250 ML BAG IVPB STA (15:00)
[2018-11-24] MEDS ORDERED: Vancomycin 1 GM 1 GM/250 ML BAG IVPB ONE (15:54)
--- NOTE | 2018-11-24 16:13 | C.PDOC ---
History Of Present Illness 63 y/o male,w/PMhx of HTN, multiple sclerosis, and anemia, [facility] evaluation of sacral wounds. Patient was sent to the ER upon referral of . Patient denies having fever and chills. Of note, HPI is limited because patient has history of multiple sclerosis. Chief Complaint (Nursing): Wound Check History Per: Patient, Other (prison records) History/Exam Limitations: clinical condition Onset/Duration Of Symptoms: Days Current Symptoms Are (Timing): Still Present Severity: Moderate Past Medical History Reviewed: Historical Data, Nursing Documentation, Vital Signs Vital Signs: Last Vital Signs Temp 98.0 F 11/24/18 14:28 Pulse 98 H 11/24/18 14:28 Resp 16 11/24/18 14:28 BP 131/85 11/24/18 14:28 Pulse Ox 96 11/24/18 14:28 Primary Care Provider: Dayanara Bhat - Medical History PMH: Anemia, GERD, HTN, Multiple Sclerosis, Seizures Denies: Alzheimer's Disease, Asthma, Atrial Fibrillation, Bronchitis, Cardia Arrhythmia, CHF, COPD, Dementia, Deep Vein Thrombosis, Emphysema, HIV, Hypercholesterolemia, Hyperthyroidism, Hypothyroidism, Kidney Stones, Migraine, Mitral Valve Prolapse, Parkinson's Disease, Peripheral Edema, Pneumonia, Pulmonary Embolism, Chronic Kidney Disease, Sleep Apnea, TIA Surgical History: No Surg Hx Denies: Pacemaker - [facility] Procedures DRAINAGE OF RETROPERITONEUM, OPEN APPROACH (11/10/18) DRAINAGE OF SACRUM, OPEN APPROACH (11/10/18) DRAINAGE OF SACRUM, OPEN APPROACH, DIAGNOSTIC (11/10/18) EXCISION OF BACK SUBCU/FASCIA, OPEN APPROACH (11/10/18) EXCISION OF BACK SUBCU/FASCIA, OPEN APPROACH, DIAGN (11/10/18) EXCISION OF L UP LEG SUBCU/FASCIA, OPEN APPROACH (11/10/18) INFUSION OF IMMUNOSUPPRESSIVE ANTIBODY THERAPY (05/01/14) INJECT CA CHEMOTHER NEC (02/03/14) INJECT/INFUSE NEC (05/19/13) Family History: States: No Known Family Hx - Social History Hx Tobacco Use: No Hx Alcohol Use: No Hx Substance Use: No - Immunization History Hx Tetanus Toxoid Vaccination: No Hx Influenza Vaccination: Yes Hx Pneumococcal Vaccination: Yes Review Of Systems Review Of Systems: ROS cannot be obtained secondary to pt's inabilty to answer questions. Physical Exam - Physical Exam Appears: Non-toxic, No Acute Distress, Other (awake,alert,slightly audible) Skin: Normal Color, Warm, Dry, Other (2 deep stage 4 wounds on sacrum with foul smell, no drainage; healing wound to heel of left foot) Head: Atraumatic, Normacephalic Eye(s): bilateral: Normal Inspection Nose: Normal Oral Mucosa: Moist Neck: Supple Chest: Symmetrical Cardiovascular: Rhythm Regular Respiratory: Normal Breath Sounds, No Rales, No Rhonchi, No Wheezing Gastrointestinal/Abdominal: Normal Exam, Soft, No Tenderness, No Guarding, No Rebound Neurological/Psych: Other (awake,alert,slightly audible) ED Course And Treatment - Laboratory Results Result Diagrams: 11/24/18 11:58 11/24/18 11:58 Lab Results: PT 15.0 SECONDS (9.7-12.2) H 11/24/18 11:58 INR 1.4 11/24/18 11:58 APTT 39.0 SECONDS (21-34) H 11/24/18 11:58 O2 Sat by Pulse Oximetry: 96 (RA) Pulse Ox Interpretation: Normal Medical Decision Making Medical Decision Making: Plan: --Labs --Blood Culture Updates: 13:00 Case discussed with . evaluated patient in ER. 's service contacted. Pending call back. 14:00 's service contacted 2nd time. Pending call back 14:50 Case discussed with . Patient will be admitted under the service of . - Scribe Statement The provider has reviewed the documentation as recorded by the Agusto Underwood Provider Attestation: All medical record entries made by the Soniaibsandra were at my direction and personally dictated by me. I have reviewed the chart and agree that the record accurately reflects my personal performance of the history, physical exam, medical decision making, and the department course for this patient. I have also personally directed, reviewed, and agree with the discharge instructions and disposition.
[2018-11-24] MEDS ORDERED: Home Med 1 UNIT (Meropenem [Merrem Iv] 1 GM) IVPB SCH (22:45)
[2018-11-24] MEDS: Meropenem 1 GM in Sodium Chloride 0.9% 100 ML IVPB SCH (23:56)
[2018-11-25 07:27] LABS: BASO # 0.1 K/uL (0.0-0.2); BASO % 1.4 % (0.0-2.0); EOS # 0.3 K/uL (0.0-0.7); EOS % 4.7 % (0.0-4.0); HEMOGLOBIN 11.6 g/dL (12.0-18.0); LYMPH # 1.8 K/uL (1.0-4.3); LYMPH % 28.6 % (20.0-40.0); MEAN CELL VOLUME 84.1 fL (80.0-94.0); MEAN CORPUSCULAR HEMOGLOBIN 27.3 pg (27.0-31.0); MEAN CORPUSCULAR HGB CONC 32.5 g/dL (33.0-37.0); MEAN PLATELET VOLUME 9.7 fL (7.2-11.7); MONO # 0.5 K/uL (0.0-0.8); MONO % 8.6 % (0.0-10.0); NEUT # 3.6 K/uL (1.8-7.0); NEUT % 56.7 % (50.0-75.0); NRBC % 0.1 % (0.0-2.0); RBC 4.23 Mil/uL (4.40-5.90); WHITE BLOOD COUNT 6.4 K/uL (4.8-10.8)
[2018-11-25 07:51] LABS: ALBUMIN 3.3 g/dL (3.5-5.0); ALT/SGPT 26 U/L (21-72); AST/SGOT 28 U/L (17-59); BLOOD UREA NITROGEN 21 mg/dL (9-20); CALCIUM 8.2 mg/dl (8.6-10.4); GFR NON-AFRICAN AMERICAN > 60
[2018-11-25] MEDS: Meropenem 1 GM in Sodium Chloride 0.9% 100 ML IVPB SCH ×2 (08:15→17:18)
[2018-11-25] MEDS ORDERED: Home Med 1 UNIT (Amino Acids/Protein Hydrolys [Prostat 15 G Packet] 30 ML) PO SCH (10:00)
[2018-11-25] MEDS: Enoxaparin 40 mg Syringe SC SCH (10:32)
--- NOTE | 2018-11-25 12:02 | CP.PCM.PN ---
Subjective - Date & Time of Evaluation Date of Evaluation: 11/25/18 Time of Evaluation: 12:01 - Subjective Subjective: NO SP COMPLAINTS VS STABLE SCARAL ULCER FURTHER TREATMENT PER SURGERY Objective - Vital Signs/Intake and Output Vital Signs (last 24 hours): Temp Pulse Resp BP Pulse Ox 98.1 F 83 20 136/81 98 11/25/18 08:00 11/25/18 08:00 11/25/18 08:00 11/25/18 08:00 11/25/18 08:00 Intake and Output: 11/25/18 11/25/18 11:59 23:59 Output Total 200 Balance -200 - Medications Medications: Current Medications Cyanocobalamin (Vitamin B12 1000 Mcg Tab) 1,000 mcg PO DAILY [facility] Diazepam (Valium) 5 mg PO HS [facility] Enoxaparin Sodium (Lovenox) 40 mg SC DAILY [facility] Last Admin: 11/25/18 10:32 Dose: Not Given Famotidine (Pepcid) 20 mg PO HS [facility] Meropenem 1 gm/ Sodium (Chloride) 100 mls @ 100 mls/hr IVPB Q8H [facility] Last Admin: 11/24/18 23:56 Dose: 100 mls/hr Losartan Potassium (Cozaar) 50 mg PO DAILY [facility] - Labs Labs: 11/25/18 07:04 11/25/18 07:04 PT 15.0 SECONDS (9.7-12.2) H 11/24/18 11:58 INR 1.4 11/24/18 11:58 APTT 39.0 SECONDS (21-34) H 11/24/18 11:58 Assessment and Plan (1) Sacral decubitus ulcer Status: Acute (2) Multiple sclerosis Status: Acute
[2018-11-25] MEDS ORDERED: Lidocaine Hydrochloride 5 ML INJ ONE (13:03)
[2018-11-25] MEDS ORDERED: Propofol 10 mg/ml Inj (20 ML) ONE (13:03)
[2018-11-25] MEDS ORDERED: Midazolam 2 MG/2 ML VIAL ONE (13:03)
--- NOTE | 2018-11-25 18:58 | CP.PCM.CON ---
History of Present Illness - History of Present Illness History of Present Illness: 63 yo male with end stage MS [place] with necrotic wounds referred fro ID evaluation and antibiotivc management' growing Pseudomonas and proteus from wound PMH MS Bed bound in [place] with stage IV sacrum and left hip ulcer Review of Systems - Review of Systems All systems: reviewed and no additional remarkable complaints except - Constitutional Constitutional: As Per HPI - EENT Eyes: absent: As Per HPI, Blind Spots, Blurred Vision, Change in Vision, Decreased Night Vision, Diplopia, Discharge, Dry Eye, Exophthalmos, Floaters, Irritation, Itchy Eyes, Loss of Peripheral Vision, Pain, Photophobia, Requires Corrective Lenses, Sees Flashes, Spots in Vision, Tunnel Vision, Other Visual Disturbances, Loss of Vision, Other Ears: absent: As Per HPI, Decreased Hearing, Ear Discharge, Ear Pain, Tinnitus, Abnormal Hearing, Disequilibrium, Dizziness, Other Nose/Mouth/Throat: absent: As Per HPI, Epistaxis, Nasal Congestion, Nasal Discharge, Nasal Obstruction, Nasal Trauma, Nose Pain, Post Nasal Drip, Sinus Pain, Sinus Pressure, Bleeding Gums, Change in Voice, Dental Pain, Dry Mouth, Dysphagia, Halitosis, Hoarsness, Lip Swelling, Mouth Lesions, Mouth Pain, Odynophagia, Sore Throat, Throat Swelling, Tongue Swelling, Facial Pain, Neck Pain, Neck Mass, Other - Cardiovascular Cardiovascular: absent: As Per HPI, Acrocyanosis, Chest Pain, Chest Pain at Rest, Chest Pain with Activity, Claudication, Diaphoresis, Dyspnea, Dyspnea on Exertion, Edema, Irregular Heart Rhythm, Pain Radiating to Arm/Neck/Jaw, Leg Edema, Leg Ulcers, Lightheadedness, Orthopnea, Palpitations, Paroxysmal Noctu rnal Dyspnea, Pedal Edema, Radiating Pain, Rapid Heart Rate, Slow Heart Rate, Syncope, Other - Respiratory Respiratory: As Per HPI, Cough - Gastrointestinal Gastrointestinal: absent: As Per HPI, Abdominal Pain, Belching, Bloating, Change in Bowel Habits, Change in Stool Character, Coffee Ground Emesis, Constipation, Cramping, Diarrhea, Dyspepsia, Dysphagia, Early Satiety, Excessive Flatus, Fecal Incontinence, Heartburn, Hematemesis, Hematochezia, Loose Stools, Melena, Nausea, Odynophagia, Temesmus, Vomiting, Other - Genitourinary Genitourinary: absent: As Per HPI, Change in Urinary Stream, Difficulty Urinating, Dysuria, Flank Pain, Hematuria, Pyuria, Nocturia, Urinary Incont inence, Urinary Frequency, Urinary Hesitance, Urinary Urgency, Voiding Freq/Small Amts, Freq UTI, Hx Renal/Bladder Calculi, Hx /Renal Surgery, Bladder Distension, Other Past Patient History - Infectious Disease Hx of Infectious Diseases: MRSA - Past Medical History & Family History Past Medical History?: Yes - Past Social History Smoking Status: Never Smoked - CARDIAC Hx Cardiac Disorders: Yes Hx Atrial Fibrillation: No Hx Cardia Arrhythmia: No Hx Congestive Heart Failure: No Hx Hypercholesterolemia: No Hx Hypertension: Yes Hx Mitral Valve Prolapse: No Hx Pacemaker: No Hx Peripheral Edema: No - PULMONARY Hx Respiratory Disorders: No Hx Asthma: No Hx Bronchitis: No Hx Chronic Obstructive Pulmonary Disease (COPD): No Hx Emphysema: No Hx Pneumonia: No Hx Pulmonary Embolism: No Hx Sleep Apnea: No - NEUROLOGICAL Hx Neurological Disorder: Yes Hx Alzheimer's Disease: No Hx Dementia: No Hx Migraine: No Hx Multiple Sclerosis: Yes Hx Parkinson's Disease: No Hx Seizures: Yes Hx Transient Ischemic Attacks (TIA): No - HEENT Hx HEENT Problems: No Hx Blind: No Hx Cataracts: No Hx Deafness: No Hx Difficulty Chewing: No Hx Epistaxis: No Hx Glaucoma: No Hx Macular Degeneration: No - RENAL Hx Chronic Kidney Disease: No Hx Kidney Stones: No - ENDOCRINE/METABOLIC Hx Endocrine Disorders: No Hx Hyperthyroidism: No Hx Hypothyroidism: No - HEMATOLOGICAL/ONCOLOGICAL Hx Blood Disorders: Yes Hx Anemia: Yes Hx Human Immunodeficiency Virus (HIV): No - INTEGUMENTARY Hx Dermatological Problems: Yes Other/Comment: left buttocks pressure ulcer, two open areas - MUSCULOSKELETAL/RHEUMATOLOGICAL Hx Musculoskeletal Disorders: No Hx Falls: No - GASTROINTESTINAL Hx Gastrointestinal Disorders: Yes Hx Gastroesophageal Reflux: Yes - GENITOURINARY/GYNECOLOGICAL Hx Genitourinary Disorders: No - PSYCHIATRIC Hx Psychophysiologic Disorder: No Hx Substance Use: No - SURGICAL HISTORY Hx Surgeries: No Hx Mastectomy: No - ANESTHESIA Hx Anesthesia: Yes Hx Anesthesia Reactions: No Meds Allergies/Adverse Reactions: Allergies Allergy/AdvReac Type Severity Reaction Status Date / Time No Known Allergies Allergy Verified 11/24/18 10:22 - Medications Medications: Current Medications Cyanocobalamin (Vitamin B12 1000 Mcg Tab) 1,000 mcg PO DAILY [facility] Last Admin: 11/25/18 11:00 Dose: 1,000 mcg Diazepam (Valium) 5 mg PO HS [facility] Enoxaparin Sodium (Lovenox) 40 mg SC DAILY [facility] Last Admin: 11/25/18 10:32 Dose: Not Given Famotidine (Pepcid) 20 mg PO HS [facility] Meropenem 1 gm/ Sodium (Chloride) 100 mls @ 100 mls/hr IVPB Q8H [facility] Last Admin: 11/25/18 17:18 Dose: 100 mls/hr Losartan Potassium (Cozaar) 50 mg PO DAILY [facility] Last Admin: 11/25/18 10:15 Dose: 50 mg Physical Exam - Constitutional Appears: Non-toxic, No Acute Distress, Cachectic, Chronically Ill - Head Exam Head Exam: ATRAUMATIC, NORMAL INSPECTION, NORMOCEPHALIC - Eye Exam Eye Exam: EOMI, Normal appearance, PERRL Pupil Exam: NORMAL ACCOMODATION, PERRL - ENT Exam ENT Exam: Mucous Membranes Moist, Normal Exam - Neck Exam Neck exam: Positive for: Normal Inspection - Respiratory Exam Respiratory Exam: Clear to Auscultation Bilateral, NORMAL BREATHING PATTERN - Cardiovascular Exam Cardiovascular Exam: REGULAR RHYTHM - GI/Abdominal Exam GI & Abdominal Exam: Normal Bowel Sounds, Soft. absent: Tenderness - Extremities Exam Extremities exam: Positive for: normal inspection - Back Exam Back exam: NORMAL INSPECTION - Neurological Exam Neurological exam: Alert, CN II-XII Intact, Motor Sensory Deficit, Oriented x3 Additional comments: bed ridden quadriplegic - Psychiatric Exam Psychiatric exam: Normal Affect, Normal Mood - Skin Skin Exam: Abrasion, Cyanosis, Diaphoretic, Dry, Erythema, Intact, Mottled, Normal Color, Pallor, Pallor, Petechiae, Rash, Urticaria, Vesicles - Additional Findings Additional findings: multiple infected wounds stage 4 sacrum Results - Vital Signs Recent Vital Signs: Last Vital Signs Temp 97.2 F L 11/25/18 15:49 Pulse 71 11/25/18 15:49 Resp 20 11/25/18 15:49 BP 114/71 11/25/18 15:49 Pulse Ox 99 11/25/18 15:49 - Labs Result Diagrams: 11/25/18 07:04 11/25/18 07:04 Labs: Laboratory Results - last 24 hr 05/09/19 05/09/19 07:04 07:04 WBC 6.4 RBC 4.23 L Hgb 11.6 L Hct 35.5 MCV 84.1 MCH 27.3 MCHC 32.5 L RDW 16.0 H Plt Count 267 MPV 9.7 Neut % (Auto) 56.7 Lymph % (Auto) 28.6 [place] % (Auto) 8.6 Eos % (Auto) 4.7 H Baso % (Auto) 1.4 Neut # (Auto) 3.6 Lymph # (Auto) 1.8 [place] # (Auto) 0.5 Eos # (Auto) 0.3 Baso # (Auto) 0.1 Sodium 140 Potassium 3.0 L Chloride 100 Carbon Dioxide 31 H Anion Gap 12 BUN 21 H Creatinine 0.6 L Est GFR ( Amer) > 60 Est GFR (Non-Af Amer) > 60 Random Glucose 98 D Calcium 8.2 L Total Bilirubin 0.8 AST 28 ALT 26 Alkaline Phosphatase 65 Total Protein 6.6 Albumin 3.3 L Globulin 3.2 Albumin/Globulin Ratio 1.0 Assessment & Plan - Assessment and Plan (Free Text) Assessment: 63 yo male with end stage MS is admitted for rx of infr=ected decubiti'' consider CT sacrum'await cultures consider colostomhy cont wound care and IV antibiotics
[2018-11-26] MEDS: Meropenem 1 GM in Sodium Chloride 0.9% 100 ML IVPB SCH ×4 (00:08→23:36)
--- NOTE | 2018-11-26 06:40 | OP ---
PROCEDURE DATE: 11/25/2018 PREOPERATIVE DIAGNOSES: Osteomyelitis and sacral decubitus. POSTOPERATIVE DIAGNOSES: Osteomyelitis and sacral decubitus. PROCEDURE PERFORMED: Incision and drainage of osteomyelitis, bone biopsy, removal of sacral polyp, and re-debridement of wound. SURGEON: Ulices Wesley MD ANESTHESIA: General. ESTIMATED BLOOD LOSS: Less than 20 mL. POSTOPERATIVE CONDITION: Stable. INDICATIONS FOR SURGERY: This is a 63-year-old male with a history of a sacral decubitus ulcer with a documented osteomyelitis. He was treated 2 weeks ago with several debridements, sent back to the hospital and now he is back to the emergency room with fever, and apparently, a recurrent infection of his sacral area. He was seen yesterday, underwent a bedside incision and drainage of an osteo in the emergency room. Today, he was taken to the operating room, so he can have further debridement and assessment of the area. DESCRIPTION OF PROCEDURE: The patient was taken to the operating room. IV sedation was administered. He was placed in a right lateral decubitus position. Both sacral and hip wounds were explored. Necrotic tissue was debrided. Bleeding was controlled using a Bovie and a parasacral blood vessel was repaired. An osteomyelitis was re-drained. A bone biopsy was taken and sent. Bleeding was controlled using the Bovie. A sacral polyp was noted and removed and sent for specimen. The wound was then pulse irrigated with saline and Kantrex solution and packed open with wet saline gauze. The patient tolerated the procedure well and returned to the recovery room in stable condition. Ulices Wesley MD
[2018-11-26 08:25] LABS: BASO % 0.5 % (0.0-2.0); EOS # 0.2 K/uL (0.0-0.7); HEMOGLOBIN 11.1 g/dL (12.0-18.0); LYMPH # 1.8 K/uL (1.0-4.3); LYMPH % 24.6 % (20.0-40.0); MEAN CORPUSCULAR HEMOGLOBIN 27.5 pg (27.0-31.0); MEAN CORPUSCULAR HGB CONC 32.8 g/dL (33.0-37.0); MEAN PLATELET VOLUME 9.7 fL (7.2-11.7); MONO # 0.6 K/uL (0.0-0.8); MONO % 8.9 % (0.0-10.0); NEUT # 4.6 K/uL (1.8-7.0); RBC 4.05 Mil/uL (4.40-5.90); WHITE BLOOD COUNT 7.2 K/uL (4.8-10.8)
[2018-11-26 08:42] LABS: ALBUMIN 3.4 g/dL (3.5-5.0); ALT/SGPT 20 U/L (21-72); AST/SGOT 22 U/L (17-59); BLOOD UREA NITROGEN 18 mg/dL (9-20); GFR NON-AFRICAN AMERICAN > 60
[2018-11-26] MEDS: Enoxaparin 40 mg Syringe SC SCH (09:43)
--- NOTE | 2018-11-26 11:23 | CP.PCM.PN ---
Subjective - Date & Time of Evaluation Date of Evaluation: 11/26/18 Time of Evaluation: 11:23 - Subjective Subjective: HAD DEBRIDEMENT NO SP COMPLAINTS VS STABLE SCARAL ULCER FURTHER TREATMENT PER SURGERY Objective - Vital Signs/Intake and Output Vital Signs (last 24 hours): Temp Pulse Resp BP Pulse Ox 98.3 F 97 H 20 147/88 95 11/26/18 07:00 11/26/18 07:00 11/26/18 07:00 11/26/18 07:00 11/26/18 07:00 Intake and Output: 11/25/18 11/26/18 23:59 11:59 Intake Total 1000 220 Output Total 400 Balance 600 220 - Medications Medications: Current Medications Cyanocobalamin (Vitamin B12 1000 Mcg Tab) 1,000 mcg PO DAILY [facility] Last Admin: 11/26/18 09:44 Dose: Not Given Diazepam (Valium) 5 mg PO [facility] Last Admin: 11/25/18 22:01 Dose: 5 mg Enoxaparin Sodium (Lovenox) 40 mg SC DAILY [facility] Last Admin: 11/26/18 09:43 Dose: Not Given Famotidine (Pepcid) 20 mg PO HS [facility] Last Admin: 11/25/18 22:01 Dose: 20 mg Meropenem 1 gm/ Sodium (Chloride) 100 mls @ 100 mls/hr IVPB Q8H [facility] Last Admin: 11/26/18 08:30 Dose: 100 mls/hr Vancomycin/Sodium Chloride (Vancomycin 1 Gm/Ns 200 Ml) 1 gm in 200 mls @ 133 mls/hr IVPB Q24H [facility]; Protocol Stop: 12/01/18 16:01 Losartan Potassium (Cozaar) 50 mg PO DAILY [facility] Last Admin: 11/26/18 09:44 Dose: Not Given - Labs Labs: 11/26/18 08:10 11/26/18 08:10 PT 15.0 SECONDS (9.7-12.2) H 11/24/18 11:58 INR 1.4 11/24/18 11:58 APTT 39.0 SECONDS (21-34) H 11/24/18 11:58 Assessment and Plan (1) Sacral decubitus ulcer Status: Acute (2) Multiple sclerosis Status: Acute
[2018-11-26] MEDS ORDERED: Midazolam 2 MG/2 ML VIAL ONE (13:37)
[2018-11-26] MEDS ORDERED: Propofol 10 mg/ml Inj (20 ML) ONE (13:37)
[2018-11-26 15:09] LABS: SQUAMOUS EPITHIAL 2 /hpf (0-5); URINE BACTERIA RARE (<OCC); URINE BILIRUBIN NEGATIVE (NEGATIVE); URINE BLOOD NEGATIVE (NEGATIVE); URINE CLARITY Clear (Clear); URINE COLOR Amber (YELLOW); URINE GLUCOSE (UA) 1+ mg/dL (Normal); URINE LEUKOCYTE ESTERASE 1+ Leu/uL (Negative); URINE PROTEIN 1+ mg/dL (NEGATIVE)
[2018-11-26] MEDS ORDERED: Vancomycin 1 gm/NS 200 ml 1 GM/200 ML BAG IVPB SCH (16:00)
[2018-11-26] MEDS: Dextrose 5%/0.45% NS 1,000 ML IV SCH (16:07)
--- NOTE | 2018-11-26 18:56 | CP.PCM.PN ---
Subjective - Date & Time of Evaluation Date of Evaluation: 11/26/18 Time of Evaluation: 08:00 - Subjective Subjective: 63 yo male with end stage MS is admitted [place] with necrotic wounds referred fro ID evaluation and antibiotivc management' growing Pseudomonas and proteus from wound H MS Bed bound in [place] with stage IV sacrum and left hip ulcer Objective - Vital Signs/Intake and Output Vital Signs (last 24 hours): Temp Pulse Resp BP Pulse Ox 98.3 F 84 20 137/83 97 11/26/18 15:00 11/26/18 15:00 11/26/18 15:00 11/26/18 15:00 11/26/18 15:00 Intake and Output: 11/26/18 11/26/18 06:59 18:59 Intake Total 720 Output Total 400 190 Balance 320 -190 - Medications Medications: Current Medications Cyanocobalamin (Vitamin B12 1000 Mcg Tab) 1,000 mcg PO DAILY [facility] Last Admin: 11/26/18 09:44 Dose: Not Given Diazepam (Valium) 5 mg PO [facility] Last Admin: 11/25/18 22:01 Dose: 5 mg Enoxaparin Sodium (Lovenox) 40 mg SC DAILY [facility] Last Admin: 11/26/18 09:43 Dose: Not Given Famotidine (Pepcid) 20 mg PO [facility] Last Admin: 11/25/18 22:01 Dose: 20 mg Meropenem 1 gm/ Sodium (Chloride) 100 mls @ 100 mls/hr IVPB Q8H [facility] Last Admin: 11/26/18 16:17 Dose: 100 mls/hr Vancomycin/Sodium Chloride (Vancomycin 1 Gm/Ns 200 Ml) 1 gm in 200 mls @ 133 mls/hr IVPB Q24H [facility]; Protocol Stop: 12/01/18 16:01 Last Admin: 11/26/18 17:05 Dose: 133 mls/hr Dextrose/Sodium Chloride (Dextrose 5%/0.45% Ns 1000 Ml) 1,000 mls @ 80 mls/hr IV .[id number] [facility] Last Admin: 11/26/18 16:07 Dose: 80 mls/hr Losartan Potassium (Cozaar) 50 mg PO DAILY [facility] Last Admin: 11/26/18 09:44 Dose: Not Given - Labs Labs: 11/26/18 08:10 11/26/18 08:10 PT 15.0 SECONDS (9.7-12.2) H 11/24/18 11:58 INR 1.4 11/24/18 11:58 APTT 39.0 SECONDS (21-34) H 11/24/18 11:58 - Constitutional Appears: Non-toxic, No Acute Distress, Chronically Ill - Head Exam Head Exam: ATRAUMATIC, NORMAL INSPECTION, NORMOCEPHALIC - Eye Exam Eye Exam: EOMI, Normal appearance, PERRL Pupil Exam: NORMAL ACCOMODATION, PERRL - ENT Exam ENT Exam: Mucous Membranes Moist, Normal Exam - Neck Exam Neck Exam: Full ROM, Normal Inspection. absent: Lymphadenopathy - Respiratory Exam Respiratory Exam: Clear to Ausculation Bilateral, NORMAL BREATHING PATTERN - Cardiovascular Exam Cardiovascular Exam: REGULAR RHYTHM, +S1, +S2. absent: Murmur - GI/Abdominal Exam GI & Abdominal Exam: Soft, Normal Bowel Sounds. absent: Tenderness - Rectal Exam Rectal Exam: Deferred - Exam Exam: NORMAL INSPECTION - Extremities Exam Extremities Exam: Full ROM, Normal Capillary Refill, Normal Inspection. absent: Joint Swelling, Pedal Edema - Back Exam Back Exam: tenderness. absent: NORMAL INSPECTION - Neurological Exam Neurological Exam: Alert, Awake, CN II-XII Intact, Motor Sensory Deficit, Oriented x3. absent: Normal Gait Neuro motor strength exam: Left Upper Extremity: 2/1, Right Upper Extremity: 2/1, Left Lower Extremity: 2/1, Right Lower Extremity: 2/1 - Psychiatric Exam Psychiatric exam: Depressed - Skin Skin Exam: Dry, Intact, Normal Color, Warm Assessment and Plan (1) Multiple sclerosis Status: Acute (2) Sacral decubitus ulcer Status: Acute - Assessment and Plan (Free Text) Assessment: end stage MS with hx of sepsis from infected decubiti 'consider surgical debridement' consider colostomy' consider imaging of sacrum by CT and or Bone scan consider plastics rk cont wound care IV antibiotics renewed
[2018-11-27 07:19] LABS: BASO # 0.1 K/uL (0.0-0.2); BASO % 0.8 % (0.0-2.0); EOS # 0.3 K/uL (0.0-0.7); EOS % 4.4 % (0.0-4.0); HEMOGLOBIN 10.7 g/dL (12.0-18.0); LYMPH % 29.6 % (20.0-40.0); MEAN CELL VOLUME 84.1 fL (80.0-94.0); MEAN CORPUSCULAR HEMOGLOBIN 27.2 pg (27.0-31.0); MEAN CORPUSCULAR HGB CONC 32.3 g/dL (33.0-37.0); MEAN PLATELET VOLUME 9.7 fL (7.2-11.7); MONO # 0.6 K/uL (0.0-0.8); MONO % 8.3 % (0.0-10.0); NEUT # 3.9 K/uL (1.8-7.0); NEUT % 56.9 % (50.0-75.0); RBC 3.95 Mil/uL (4.40-5.90); RED CELL DISTRIBUTION WIDTH 15.7 % (11.5-14.5); WHITE BLOOD COUNT 6.9 K/uL (4.8-10.8)
[2018-11-27 07:34] LABS: ALBUMIN 3.1 g/dL (3.5-5.0); ALT/SGPT 23 U/L (21-72); AST/SGOT 24 U/L (17-59); BLOOD UREA NITROGEN 16 mg/dL (9-20); GFR NON-AFRICAN AMERICAN > 60
[2018-11-27] MEDS: Meropenem 1 GM in Sodium Chloride 0.9% 100 ML IVPB SCH ×3 (08:43→23:47)
[2018-11-27] MEDS: Dextrose 5%/0.45% NS 1,000 ML IV SCH (09:58)
[2018-11-27] MEDS ORDERED: Potassium Chloride 20 mEq ER Tab PO ONE ×2 (10:00→14:00)
[2018-11-27] MEDS: Enoxaparin 40 mg Syringe SC SCH (10:53)
--- NOTE | 2018-11-27 12:23 | CP.PCM.PN ---
Subjective - Date & Time of Evaluation Date of Evaluation: 11/27/18 Time of Evaluation: 12:19 - Subjective Subjective: REPEAT WOUND CULTURE IS GROWING VRE AND ACETINOBACT. D/W ID CHANGE OF AB REFUSED TO DO ANY MORE DEBRIDEMENT AND COLOSTOMY WOUND IS CONSTANTLY CONTAMINATED WITH FECES HAS BEEN EXPLAINED MULTIPLE TIMES THE NEED FOR DEBRIDEMENT BUT SHE DECLINES AT THE RISK OF SERIOUS INJURY TO PT Objective - Vital Signs/Intake and Output Vital Signs (last 24 hours): Temp Pulse Resp BP Pulse Ox 97.8 F 86 20 131/80 96 11/27/18 08:00 11/27/18 08:00 11/27/18 08:00 11/27/18 08:00 11/27/18 08:00 Intake and Output: 11/27/18 11/27/18 11:59 23:59 Intake Total 640 Balance 640 - Medications Medications: Current Medications Cyanocobalamin (Vitamin B12 1000 Mcg Tab) 1,000 mcg PO DAILY [facility] Last Admin: 11/27/18 10:08 Dose: Not Given Diazepam (Valium) 5 mg PO [facility] Last Admin: 11/26/18 21:30 Dose: 5 mg Enoxaparin Sodium (Lovenox) 40 mg SC DAILY [facility] Last Admin: 11/27/18 10:53 Dose: 40 mg Famotidine (Pepcid) 20 mg PO HS [facility] Last Admin: 11/26/18 21:30 Dose: 20 mg Meropenem 1 gm/ Sodium (Chloride) 100 mls @ 100 mls/hr IVPB Q8H [facility] Last Admin: 11/27/18 08:43 Dose: 100 mls/hr Vancomycin/Sodium Chloride (Vancomycin 1 Gm/Ns 200 Ml) 1 gm in 200 mls @ 133 mls/hr IVPB Q24H [facility]; Protocol Stop: 12/01/18 16:01 Last Admin: 11/26/18 17:05 Dose: 133 mls/hr Losartan Potassium (Cozaar) 50 mg PO DAILY [facility] Last Admin: 11/27/18 10:08 Dose: Not Given Potassium Chloride (K-Dur 20 Meq Er Tab) 40 meq PO ONCE ONE Stop: 11/27/18 14:01 - Labs Labs: 11/27/18 07:00 11/27/18 07:00 PT 15.0 SECONDS (9.7-12.2) H 05/08/19 11:58 INR 1.4 11/24/18 11:58 APTT 39.0 SECONDS (21-34) H 11/24/18 11:58 Assessment and Plan (1) Sacral decubitus ulcer Status: Acute (2) Multiple sclerosis Status: Acute
[2018-11-27] MEDS: Linezolid 600 mg in D5W 300 ml 600 MG/300 ML BAG IVPB SCH (17:33)
[2018-11-28] MEDS: Linezolid 600 mg in D5W 300 ml 600 MG/300 ML BAG IVPB SCH ×2 (03:05→17:00)
[2018-11-28 08:09] LABS: BASO # 0.1 K/uL (0.0-0.2); EOS # 0.3 K/uL (0.0-0.7); EOS % 4.1 % (0.0-4.0); LYMPH # 1.8 K/uL (1.0-4.3); LYMPH % 27.7 % (20.0-40.0); MEAN CELL VOLUME 83.6 fL (80.0-94.0); MEAN CORPUSCULAR HEMOGLOBIN 27.9 pg (27.0-31.0); MEAN CORPUSCULAR HGB CONC 33.4 g/dL (33.0-37.0); MEAN PLATELET VOLUME 9.7 fL (7.2-11.7); MONO # 0.5 K/uL (0.0-0.8); MONO % 8.3 % (0.0-10.0); NEUT # 3.8 K/uL (1.8-7.0); NEUT % 58.9 % (50.0-75.0); RBC 3.94 Mil/uL (4.40-5.90); RED CELL DISTRIBUTION WIDTH 15.9 % (11.5-14.5); WHITE BLOOD COUNT 6.4 K/uL (4.8-10.8)
[2018-11-28 08:20] LABS: ALBUMIN 3.3 g/dL (3.5-5.0); ALT/SGPT 22 U/L (21-72); AST/SGOT 26 U/L (17-59); BLOOD UREA NITROGEN 15 mg/dL (9-20); CALCIUM 7.9 mg/dl (8.6-10.4); GFR NON-AFRICAN AMERICAN > 60
[2018-11-28] MEDS: Meropenem 1 GM in Sodium Chloride 0.9% 100 ML IVPB SCH ×3 (08:53→23:16)
[2018-11-28] MEDS: Enoxaparin 40 mg Syringe SC SCH (09:13)
--- NOTE | 2018-11-28 12:30 | CP.PCM.PN ---
Subjective - Date & Time of Evaluation Date of Evaluation: 11/28/18 Time of Evaluation: 12:29 - Subjective Subjective: REPEAT WOUND CULTURE IS GROWING VRE AND ACETINOBACT. D/W ID CHANGE OF AB REFUSED TO DO ANY MORE DEBRIDEMENT AND COLOSTOMY WOUND IS CONSTANTLY CONTAMINATED WITH FECES TRANSFER TO SD IN AM AFTER ID CLEARANCE Objective - Vital Signs/Intake and Output Vital Signs (last 24 hours): Temp Pulse Resp BP Pulse Ox 98.4 F 88 18 159/76 H 99 11/28/18 07:00 11/28/18 07:00 11/28/18 07:00 11/28/18 07:00 11/28/18 07:00 Intake and Output: 11/28/18 11/28/18 11:59 23:59 Intake Total 940 Balance 940 - Medications Medications: Current Medications Cyanocobalamin (Vitamin B12 1000 Mcg Tab) 1,000 mcg PO DAILY [facility] Last Admin: 11/28/18 09:13 Dose: 1,000 mcg Diazepam (Valium) 5 mg PO HS [facility] Last Admin: 11/27/18 21:36 Dose: 5 mg Enoxaparin Sodium (Lovenox) 40 mg SC DAILY [facility] Last Admin: 11/28/18 09:13 Dose: 40 mg Famotidine (Pepcid) 20 mg PO HS [facility] Last Admin: 11/27/18 21:36 Dose: 20 mg Meropenem 1 gm/ Sodium (Chloride) 100 mls @ 100 mls/hr IVPB Q8H [facility] Last Admin: 11/28/18 08:53 Dose: 100 mls/hr Linezolid (Zyvox 600mg/300ml D5w) 600 mg in 300 mls @ 200 mls/hr IVPB Q12H [facility]; Protocol Last Admin: 11/28/18 03:05 Dose: 200 mls/hr Losartan Potassium (Cozaar) 50 mg PO DAILY [facility] Last Admin: 11/28/18 09:13 Dose: 50 mg Potassium Chloride (K-Dur 20 Meq Er Tab) 20 meq PO BID [facility] Stop: 11/30/18 23:59 - Labs Labs: 11/28/18 07:57 11/28/18 07:57 PT 15.0 SECONDS (9.7-12.2) H 11/24/18 11:58 INR 1.4 11/24/18 11:58 APTT 39.0 SECONDS (21-34) H 11/24/18 11:58 Assessment and Plan (1) Sacral decubitus ulcer Status: Acute (2) Multiple sclerosis Status: Acute
[2018-11-28] MEDS: Potassium Chloride 20 mEq ER Tab PO SCH ×2 (13:06→17:26)
[2018-11-28] MEDS ORDERED: Potassium Chloride 20 mEq ER Tab PO ONE (14:00)
--- NOTE | 2018-11-28 14:27 | CP.PCM.PN ---
Subjective - Date & Time of Evaluation Date of Evaluation: 11/28/18 Time of Evaluation: 09:00 - Subjective Subjective: seen on rounds patient examined chart reviewed cultures noted IV rx reordered + MDRO's from wounds Objective - Vital Signs/Intake and Output Vital Signs (last 24 hours): Temp Pulse Resp BP Pulse Ox 98.4 F 88 18 159/76 H 99 11/28/18 07:00 11/28/18 07:00 11/28/18 07:00 11/28/18 07:00 11/28/18 07:00 Intake and Output: 11/28/18 11/28/18 06:59 18:59 Intake Total 940 Balance 940 - Medications Medications: Current Medications Cyanocobalamin (Vitamin B12 1000 Mcg Tab) 1,000 mcg PO DAILY [facility] Last Admin: 11/28/18 09:13 Dose: 1,000 mcg Diazepam (Valium) 5 mg PO HS [facility] Last Admin: 11/27/18 21:36 Dose: 5 mg Enoxaparin Sodium (Lovenox) 40 mg SC DAILY [facility] Last Admin: 11/28/18 09:13 Dose: 40 mg Famotidine (Pepcid) 20 mg PO HS [facility] Last Admin: 11/27/18 21:36 Dose: 20 mg Meropenem 1 gm/ Sodium (Chloride) 100 mls @ 100 mls/hr IVPB Q8H [facility] Last Admin: 11/28/18 08:53 Dose: 100 mls/hr Linezolid (Zyvox 600mg/300ml D5w) 600 mg in 300 mls @ 200 mls/hr IVPB Q12H [facility]; Protocol Last Admin: 11/28/18 03:05 Dose: 200 mls/hr Losartan Potassium (Cozaar) 50 mg PO DAILY [facility] Last Admin: 11/28/18 09:13 Dose: 50 mg Potassium Chloride (K-Dur 20 Meq Er Tab) 20 meq PO BID [facility] Stop: 11/30/18 23:59 Last Admin: 11/28/18 13:06 Dose: 20 meq - Labs Labs: 11/28/18 07:57 11/28/18 07:57 PT 15.0 SECONDS (9.7-12.2) H 11/24/18 11:58 INR 1.4 11/24/18 11:58 APTT 39.0 SECONDS (21-34) H 11/24/18 11:58 - Constitutional Appears: No Acute Distress, Chronically Ill - Head Exam Head Exam: ATRAUMATIC, NORMAL INSPECTION, NORMOCEPHALIC - Eye Exam Eye Exam: EOMI, Normal appearance, PERRL Pupil Exam: NORMAL ACCOMODATION, PERRL - ENT Exam ENT Exam: Mucous Membranes Moist, Normal Exam - Neck Exam Neck Exam: Full ROM, Normal Inspection. absent: Lymphadenopathy - Respiratory Exam Respiratory Exam: Clear to Ausculation Bilateral, NORMAL BREATHING PATTERN - Cardiovascular Exam Cardiovascular Exam: REGULAR RHYTHM, +S1, +S2. absent: Murmur - GI/Abdominal Exam GI & Abdominal Exam: Soft, Normal Bowel Sounds. absent: Tenderness - Rectal Exam Rectal Exam: Deferred - Exam Exam: NORMAL INSPECTION - Extremities Exam Extremities Exam: Full ROM, Normal Capillary Refill, Normal Inspection. absent: Joint Swelling, Pedal Edema - Back Exam Back Exam: NORMAL INSPECTION - Neurological Exam Neurological Exam: Alert, Awake, CN II-XII Intact, Motor Sensory Deficit, Normal Gait, Oriented x3 Neuro motor strength exam: Left Upper Extremity: 2/1, Right Upper Extremity: 2/1, Left Lower Extremity: 2/1, Right Lower Extremity: 2/1 - Psychiatric Exam Psychiatric exam: Normal Affect, Normal Mood - Skin Skin Exam: Warm Additional comments: wounds same ons sacrum Assessment and Plan (1) Multiple sclerosis Status: Acute (2) Sacral decubitus ulcer Status: Acute - Assessment and Plan (Free Text) Assessment: MDRO's from wounds s/p debridemnt for CT to document bone involvement add Tygacil poor prognosis
--- NOTE | 2018-11-28 16:45 | CT ---
Date of service: 11/28/2018 PROCEDURE: CT Pelvis without contrast HISTORY: Sacral osteomyelitis COMPARISON: None available. TECHNIQUE: Contiguous axial images of the pelvis . No intravenous or oral contrast given. Coronal and sagittal reformats generated. Radiation dose: Total exam DLP = 1272.57 mGy-cm. This CT exam was performed using one or more of the following dose reduction techniques: Automated exposure control, adjustment of the mA and/or kV according to patient size, and/or use of iterative reconstruction technique. FINDINGS: BLADDER: The urinary bladder appears incompletely distended with slight thick-walled appearance. Muscular hypertrophy presumably contributes. Correlation with urinalysis to exclude cystitis. REPRODUCTIVE ORGANS: Prostate gland appears heterogeneous and contains multiple calcifications. VISUALIZED BOWEL: There appears to be intraluminal fluid surrounding partially formed/desiccated stool within the rectum and sigmoid colon. There appears to be dilated air-filled bowel in the anterior pelvis likely representing air-filled transverse colon with maximal diameter estimated at approximately 9 cm. PERITONEUM: Unremarkable, as visualized. No free fluid. No free air. LYMPH NODES: There are multiple small nonspecific bilateral inguinal lymph nodes. BONES: There is a deep ulceration (measuring approximately 3.5cm t x 3.3cm cc x 2.4cm ap) in left parasagittal and mid of sacral region which extends to the surface of the bone. The ulceration contains what probably represents gauze material. The outer cortex of the subjacent sacrum is slightly irregular most likely representing a early sacral osteomyelitis. There also appears to be some presacral soft tissue density that may represent phlegmon formation; possibility of early assets formation cannot be completely excluded.. There also minimal infiltration changes in the adjacent deep presacral fat. Mild degenerative spondylosis of the lower lumbar and sacral spine. There also appears to be intradiscal calcification and possible fusion L4-L5 and to a lesser degree L5-S1 disc space levels. VASCULATURE: No aortic atherosclerotic calcification or mural plaque present. OTHER FINDINGS: None. IMPRESSION: deep ulceration in left parasagittal and mid of sacral region which extends to the surface of the bone. The ulceration contains what probably represents gauze material. The outer cortex of the subjacent sacrum is slightly irregular most likely representing a early sacral osteomyelitis. There also appears to be some presacral soft tissue density that may represent phlegmon formation; possibility of early assets formation cannot be completely excluded.. There also minimal infiltration changes in the adjacent deep presacral fat. See above discussion for additional details and findings.
[2018-11-28 17:35] VITALS: RESP 20
--- NOTE | 2018-11-28 18:42 | PN ---
DATE: 11/26/2018 SUBJECTIVE: The patient is resting comfortably on the floor. He was scheduled to return to the operating room today; however, the family refused and the OR became unavailable. For this reason, I came to bedside to change the dressing. Upon removing the dressing, there was a fair amount of bleeding within the wound. This was repaired locally using suture. Next, the wound was aggressively debrided as possible with the patient awake and the osteomyelitis was re-drained. The wound was packed with saline gauze. The patient tolerated the procedure well, returned to Recovery in stable condition. Ulices Wesley MD
--- NOTE | 2018-11-28 18:44 | PN ---
DATE: 11/27/2018 SUBJECTIVE: The patient had been scheduled to return to the operating room for a further debridement of the wound. Consent was obtained from the last night; however, once again she changed her mind today. She has done this many times during the patient's admission. For this reason, we will again change the dressing at the bedside, since there was a fair amount of bleeding yesterday, I do not want the patient to go back to snf until this has been resolved. The dressing was taken down and then there was no active bleeding noted. The osteomyelitis was re-drained. The wound was irrigated with saline. Small culture of bone was taken and sent for specimen. The wound was derbrided and a small polyp was removed. The patient tolerated the procedure well at the bedside. The wound was redressed and the patient is now ready to go back to the snf. Ulices Wesley MD MTDD
--- NOTE | 2018-11-28 19:14 | CON ---
DATE: 11/24/2018 HISTORY OF PRESENT ILLNESS: This is a 63-year-old male well known to me. He is status post multiple debridements of his sacral decubitus ulcer and a known osteomyelitis three weeks ago. He re-presents today because the wound care doctor at the long term thought that he was in need of more debridement and re-presents to the emergency room. In the emergency room, he is lying on a stretcher. He is an incapacitated patient, status post stroke with three decubitus ulcers, one of the right hip which is a stage 2 measuring 10 x 8 cm, one of the sacrum measuring 8 x 7 cm which is a stage 4 into the bone, and one of the left iliac wing measuring 3 x 3 cm also into the bone. The sacral ulcer which had an active osteomyelitis was actively draining pus and the osteomyelitis had worsened since the last time I had seen the patient. In the emergency room, using a wound care, I was able to debride the ulcer along with draining the osteomyelitis at the sacrum. A couple of small blood vessels were repaired. The wound was irrigated with saline and packed with saline gauze. IMPRESSION: My impression is that the patient has an osteomyelitis. Readmission to the hospital. Taken to the hospital for full debridement under anesthesia and this was discussed with Dr. Bhat. Ulices Wesley MD
[2018-11-29] MEDS: Tigecycline 50 MG in Dextrose 5% In Water 100 ML IVPB SCH ×2 (02:40→15:02)
[2018-11-29] MEDS: Linezolid 600 mg in D5W 300 ml 600 MG/300 ML BAG IVPB SCH (03:40)
[2018-11-29 07:17] LABS: BASO # 0.1 K/uL (0.0-0.2); EOS # 0.3 K/uL (0.0-0.7); EOS % 4.8 % (0.0-4.0); HEMOGLOBIN 11.4 g/dL (12.0-18.0); LYMPH # 1.8 K/uL (1.0-4.3); LYMPH % 26.9 % (20.0-40.0); MEAN CELL VOLUME 83.9 fL (80.0-94.0); MEAN CORPUSCULAR HEMOGLOBIN 27.4 pg (27.0-31.0); MEAN CORPUSCULAR HGB CONC 32.6 g/dL (33.0-37.0); MEAN PLATELET VOLUME 9.6 fL (7.2-11.7); MONO # 0.6 K/uL (0.0-0.8); MONO % 8.8 % (0.0-10.0); NEUT # 3.8 K/uL (1.8-7.0); NEUT % 58.5 % (50.0-75.0); RBC 4.16 Mil/uL (4.40-5.90); RED CELL DISTRIBUTION WIDTH 15.9 % (11.5-14.5); WHITE BLOOD COUNT 6.6 K/uL (4.8-10.8)
[2018-11-29 07:40] LABS: ALBUMIN 3.2 g/dL (3.5-5.0); ALT/SGPT 25 U/L (21-72); AST/SGOT 22 U/L (17-59); BLOOD UREA NITROGEN 19 mg/dL (9-20); CALCIUM 8.3 mg/dl (8.6-10.4); GFR NON-AFRICAN AMERICAN > 60
[2018-11-29] MEDS: Meropenem 1 GM in Sodium Chloride 0.9% 100 ML IVPB SCH (08:30)
[2018-11-29] MEDS: Potassium Chloride 20 mEq ER Tab PO SCH ×2 (09:50→18:29)
[2018-11-29] MEDS: Enoxaparin 40 mg Syringe SC SCH (09:50)
--- NOTE | 2018-11-29 10:46 | CP.PCM.PN ---
Subjective - Date & Time of Evaluation Date of Evaluation: 11/29/18 Time of Evaluation: 07:00 - Subjective Subjective: family refusing further surgery Objective - Vital Signs/Intake and Output Vital Signs (last 24 hours): Temp Pulse Resp BP Pulse Ox 97.9 F 92 H 20 130/83 97 11/29/18 07:00 11/29/18 07:00 11/29/18 07:00 11/29/18 07:00 11/29/18 07:00 Intake and Output: 11/29/18 11/29/18 06:59 18:59 Intake Total 1475 Output Total 800 Balance 675 - Medications Medications: Current Medications Cyanocobalamin (Vitamin B12 1000 Mcg Tab) 1,000 mcg PO DAILY [facility] Last Admin: 11/29/18 09:50 Dose: 1,000 mcg Diazepam (Valium) 5 mg PO HS [facility] Last Admin: 11/28/18 21:19 Dose: 5 mg Enoxaparin Sodium (Lovenox) 40 mg SC DAILY [facility] Last Admin: 11/29/18 09:50 Dose: 40 mg Famotidine (Pepcid) 20 mg PO HS [facility] Last Admin: 11/28/18 21:19 Dose: 20 mg Meropenem 1 gm/ Sodium (Chloride) 100 mls @ 100 mls/hr IVPB Q8H [facility] Last Admin: 11/29/18 08:30 Dose: 100 mls/hr Linezolid (Zyvox 600mg/300ml D5w) 600 mg in 300 mls @ 200 mls/hr IVPB Q12H [facility]; Protocol Last Admin: 11/29/18 03:40 Dose: 200 mls/hr Tigecycline 50 mg/ Dextrose 100 mls @ 100 mls/hr IVPB Q12H [facility]; Protocol Last Admin: 11/29/18 02:40 Dose: 100 mls/hr Losartan Potassium (Cozaar) 50 mg PO DAILY [facility] Last Admin: 11/29/18 09:51 Dose: 50 mg Potassium Chloride (K-Dur 20 Meq Er Tab) 20 meq PO BID [facility] Stop: 11/30/18 23:59 Last Admin: 11/29/18 09:50 Dose: 20 meq - Labs Labs: 11/29/18 07:02 11/29/18 07:02 PT 15.0 SECONDS (9.7-12.2) H 11/24/18 11:58 INR 1.4 11/24/18 11:58 APTT 39.0 SECONDS (21-34) H 11/24/18 11:58 - Constitutional Appears: Non-toxic, No Acute Distress, Chronically Ill - Head Exam Head Exam: ATRAUMATIC, NORMAL INSPECTION, NORMOCEPHALIC - Eye Exam Eye Exam: EOMI, Normal appearance, PERRL Pupil Exam: NORMAL ACCOMODATION, PERRL - ENT Exam ENT Exam: Mucous Membranes Moist, Normal Exam - Neck Exam Neck Exam: Full ROM, Normal Inspection. absent: Lymphadenopathy - Respiratory Exam Respiratory Exam: Clear to Ausculation Bilateral, NORMAL BREATHING PATTERN - Cardiovascular Exam Cardiovascular Exam: REGULAR RHYTHM, +S1, +S2. absent: Murmur - GI/Abdominal Exam GI & Abdominal Exam: Soft, Normal Bowel Sounds. absent: Tenderness - Rectal Exam Rectal Exam: Deferred - Extremities Exam Extremities Exam: Full ROM, Normal Capillary Refill, Normal Inspection. absent: Joint Swelling, Pedal Edema - Back Exam Back Exam: NORMAL INSPECTION - Neurological Exam Neurological Exam: Alert, Awake, CN II-XII Intact, Motor Sensory Deficit, Oriented x3. absent: Normal Gait - Psychiatric Exam Psychiatric exam: Depressed - Skin Skin Exam: Dry, Intact, Normal Color, Warm Additional comments: sacral wounds ++ Assessment and Plan (1) Multiple sclerosis Status: Acute (2) Sacral decubitus ulcer Status: Acute - Assessment and Plan (Free Text) Assessment: + OM sacral wounds down to bone On Tygacil for MDRO poor prognosis d/c on same rx- weekly labs
--- NOTE | 2018-11-29 14:13 | CP.PCM.DIS ---
Provider - Provider Date of Admission: 11/24/18 14:52 Attending physician: Dayanara Bhat MD Consults: 11/25/18 02:32 Wound Care [Nursing Referral for Wound Care] Routine Comment: Physician Instructions: Reason For Exam: multiple sacral ulcers 11/25/18 08:00 Infectious Disease Consult Routine Comment: Consulting Provider: Stephen Wiggins Consulting Physician: Stephen Wiggins Reason for Consult: infected wound 11/25/18 12:03 General Surgery Consult Routine Comment: Consulting Provider: Ulices Wesley Consulting Physician: Ulices Wesley Reason for Consult: SACRAL ULCER Time Spent in preparation of Discharge (in minutes): 35 Diagnosis - Discharge Diagnosis (1) Sacral decubitus ulcer Status: Acute (2) Multiple sclerosis Status: Acute Hospital Course - Lab Results Lab Results: Micro Results 11/24/18 15:45 Blood Blood Culture - Preliminary NO GROWTH AFTER 4 DAYS 11/24/18 15:15 Blood Blood Culture - Preliminary NO GROWTH AFTER 4 DAYS 11/26/18 14:54 Urine,Clean Catch Urine Culture - Final Yeast Species 11/25/18 15:42 Sacral Gram Stain - Final 11/25/18 15:42 Sacral Wound Culture - Final Acinetobacter Baumannii Vancomycin Res E.faecalis Most Recent Lab Values WBC 6.6 K/uL (4.8-10.8) 11/29/18 07:02 RBC 4.16 Mil/uL (4.40-5.90) L 11/29/18 07:02 Hgb 11.4 g/dL (12.0-18.0) L 11/29/18 07:02 Hct 34.9 % (35.0-51.0) L 11/29/18 07:02 MCV 83.9 fL (80.0-94.0) 11/29/18 07:02 MCH 27.4 pg (27.0-31.0) 11/29/18 07:02 MCHC 32.6 g/dL (33.0-37.0) L 11/29/18 07:02 RDW 15.9 % (11.5-14.5) H 11/29/18 07:02 Plt Count 248 K/uL (130-400) 11/29/18 07:02 MPV 9.6 fL (7.2-11.7) 11/29/18 07:02 Neut % (Auto) 58.5 % (50.0-75.0) 11/29/18 07:02 Lymph % (Auto) 26.9 % (20.0-40.0) 11/29/18 07:02 [place] % (Auto) 8.8 % (0.0-10.0) 11/29/18 07:02 Eos % (Auto) 4.8 % (0.0-4.0) H 11/29/18 07:02 Baso % (Auto) 1.0 % (0.0-2.0) 11/29/18 07:02 Neut # (Auto) 3.8 K/uL (1.8-7.0) 11/29/18 07:02 Lymph # (Auto) 1.8 K/uL (1.0-4.3) 11/29/18 07:02 [place] # (Auto) 0.6 K/uL (0.0-0.8) 11/29/18 07:02 Eos # (Auto) 0.3 K/uL (0.0-0.7) 11/29/18 07:02 Baso # (Auto) 0.1 K/uL (0.0-0.2) 11/29/18 07:02 PT 15.0 SECONDS (9.7-12.2) H 11/24/18 11:58 INR 1.4 11/24/18 11:58 APTT 39.0 SECONDS (21-34) H 11/24/18 11:58 Sodium 142 mmol/L (132-148) 11/29/18 07:02 Potassium 3.3 mmol/L (3.6-5.2) L 11/29/18 07:02 Chloride 99 mmol/L (98-107) 11/29/18 07:02 Carbon Dioxide 30 mmol/L (22-30) 11/29/18 07:02 Anion Gap 16 (10-20) 11/29/18 07:02 BUN 19 mg/dL (9-20) 11/29/18 07:02 Creatinine 0.6 mg/dL (0.8-1.5) L 11/29/18 07:02 Est GFR ( Amer) > 60 11/29/18 07:02 Est GFR (Non-Af Amer) > 60 11/29/18 07:02 Random Glucose 105 mg/dL (75-110) 11/29/18 07:02 Calcium 8.3 mg/dl (8.6-10.4) L 11/29/18 07:02 Magnesium 2.1 mg/dL (1.6-2.3) 11/27/18 07:00 Total Bilirubin 0.5 mg/dL (0.2-1.3) 11/29/18 07:02 AST 22 U/L (17-59) 11/29/18 07:02 ALT 25 U/L (21-72) 11/29/18 07:02 Alkaline Phosphatase 66 U/L (38-126) 11/29/18 07:02 Total Protein 6.6 g/dL (6.3-8.3) 11/29/18 07:02 Albumin 3.2 g/dL (3.5-5.0) L 11/29/18 07:02 Globulin 3.4 gm/dL (2.2-3.9) 11/29/18 07:02 Albumin/Globulin Ratio 1.0 (1.0-2.1) 11/29/18 07:02 Urine Color Fabiola (YELLOW) 11/26/18 14:54 Urine Clarity Clear (Clear) 11/26/18 14:54 Urine pH 5.0 (5.0-8.0) 11/26/18 14:54 Ur Specific [place] 1.025 (1.003-1.030) 11/26/18 14:54 Urine Protein 1+ mg/dL (NEGATIVE) H 11/26/18 14:54 Urine Glucose (UA) 1+ mg/dL (Normal) H 11/26/18 14:54 Urine Ketones 1+ mg/dL (NEGATIVE) H 11/26/18 14:54 Urine Blood Negative (NEGATIVE) 11/26/18 14:54 Urine Nitrate Negative (NEGATIVE) 11/26/18 14:54 Urine Bilirubin Negative (NEGATIVE) 11/26/18 14:54 Urine Urobilinogen 4.0 mg/dL (0.2-1.0) 11/26/18 14:54 Ur Leukocyte Esterase 1+ Kasia/uL (Negative) H 11/26/18 14:54 Urine WBC (Auto) 8 /hpf (0-5) H 11/26/18 14:54 Urine RBC (Auto) 2 /hpf (0-3) 11/26/18 14:54 Ur Squamous Epith Cells 2 /hpf (0-5) 11/26/18 14:54 Urine Bacteria Rare (<OCC) 11/26/18 14:54 - Hospital Course Hospital Course: PT IS READMITTED FOR FURTHER DEBRIDEMENT OF SACRAL WOUND PT HAS STAGE 4 SCARAL WOUND AND AFTER 3 OR DEBRIDEMENT STILL HAS PUS OOZING FROM WOUND . ALSO HAS SACRAL OM ON IV AB WOUND C/S LAST WEEK WAS POS FOR PROTEUS AND PSEUDOMONAS PT IS BED BOUND DUE TO MS AND HAS SELF INHIBITION TO MOVE TO CHAIR IN [place] PT WAS TAKEN TO OR FOR FURTHER DEBRIDEMENT AND PER SURGERY WILL NEED MORE EXCISION PT AND BOTH REFUSED FIRTHER TREATMENT WITH MULTIPLE PHYSICIAN CONVINCING THE FAMILY C/S WAS ACETENOBACT. 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 ORDER Referrals: Stephen Wiggins MD [Staff Provider] - Ulices Wesley MD [Staff Provider] -
[2018-11-30] MEDS: Tigecycline 50 MG in Dextrose 5% In Water 100 ML IVPB SCH (03:16)
[2018-11-30 06:47] LABS: BASO # 0.1 K/uL (0.0-0.2); BASO % 0.8 % (0.0-2.0); EOS # 0.3 K/uL (0.0-0.7); EOS % 3.8 % (0.0-4.0); LYMPH # 2.8 K/uL (1.0-4.3); LYMPH % 34.4 % (20.0-40.0); MEAN CELL VOLUME 83.5 fL (80.0-94.0); MEAN CORPUSCULAR HEMOGLOBIN 27.1 pg (27.0-31.0); MEAN CORPUSCULAR HGB CONC 32.5 g/dL (33.0-37.0); MEAN PLATELET VOLUME 9.7 fL (7.2-11.7); MONO # 0.7 K/uL (0.0-0.8); MONO % 8.8 % (0.0-10.0); NEUT # 4.2 K/uL (1.8-7.0); NEUT % 52.2 % (50.0-75.0); NRBC % 0.1 % (0.0-2.0); RBC 4.44 Mil/uL (4.40-5.90); WHITE BLOOD COUNT 8.1 K/uL (4.8-10.8)
[2018-11-30 07:22] LABS: ALBUMIN 3.2 g/dL (3.5-5.0); ALT/SGPT 21 U/L (21-72); AST/SGOT 26 U/L (17-59); BLOOD UREA NITROGEN 21 mg/dL (9-20); GFR NON-AFRICAN AMERICAN > 60
[2018-11-30] MEDS: Potassium Chloride 20 mEq ER Tab PO SCH (09:36)
[2018-11-30] MEDS: Enoxaparin 40 mg Syringe SC SCH (09:37)
--- NOTE | 2018-11-30 11:15 | CP.PCM.DIS ---
Provider - Provider Date of Admission: 11/24/18 14:52 Attending physician: Dayanara Bhat MD Consults: 11/25/18 02:32 Wound Care [Nursing Referral for Wound Care] Routine Comment: Physician Instructions: Reason For Exam: multiple sacral ulcers 11/25/18 08:00 Infectious Disease Consult Routine Comment: Consulting Provider: Stephen Wiggins Consulting Physician: Stephen Wiggins Reason for Consult: infected wound 11/25/18 12:03 General Surgery Consult Routine Comment: Consulting Provider: Ulices Wesley Consulting Physician: Ulices Wesley Reason for Consult: SACRAL ULCER Time Spent in preparation of Discharge (in minutes): 35 Diagnosis - Discharge Diagnosis (1) Sacral decubitus ulcer Status: Acute (2) Multiple sclerosis Status: Acute Hospital Course - Lab Results Lab Results: Micro Results 11/29/18 16:25 Sacral Gram Stain - Final 11/29/18 16:25 Sacral Wound Culture - Final Acinetobacter Baumannii 11/24/18 15:45 Blood Blood Culture - Final NO GROWTH AFTER 5 DAYS 11/24/18 15:45 Blood Gram Stain - Final TEST NOT PERFORMED 11/24/18 15:15 Blood Blood Culture - Final NO GROWTH AFTER 5 DAYS 11/24/18 15:15 Blood Gram Stain - Final TEST NOT PERFORMED 11/26/18 14:54 Urine,Clean Catch Urine Culture - Final Yeast Species 11/25/18 15:42 Sacral Gram Stain - Final 11/25/18 15:42 Sacral Wound Culture - Final Acinetobacter Baumannii Vancomycin Res E.faecalis Most Recent Lab Values WBC 8.1 K/uL (4.8-10.8) 11/30/18 06:38 RBC 4.44 Mil/uL (4.40-5.90) 11/30/18 06:38 Hgb 12.0 g/dL (12.0-18.0) 11/30/18 06:38 Hct 37.1 % (35.0-51.0) 11/30/18 06:38 MCV 83.5 fL (80.0-94.0) 11/30/18 06:38 MCH 27.1 pg (27.0-31.0) 11/30/18 06:38 MCHC 32.5 g/dL (33.0-37.0) L 11/30/18 06:38 RDW 16.0 % (11.5-14.5) H 11/30/18 06:38 Plt Count 286 K/uL (130-400) 11/30/18 06:38 MPV 9.7 fL (7.2-11.7) 11/30/18 06:38 Neut % (Auto) 52.2 % (50.0-75.0) 11/30/18 06:38 Lymph % (Auto) 34.4 % (20.0-40.0) 11/30/18 06:38 [place] % (Auto) 8.8 % (0.0-10.0) 11/30/18 06:38 Eos % (Auto) 3.8 % (0.0-4.0) 11/30/18 06:38 Baso % (Auto) 0.8 % (0.0-2.0) 11/30/18 06:38 Neut # (Auto) 4.2 K/uL (1.8-7.0) 11/30/18 06:38 Lymph # (Auto) 2.8 K/uL (1.0-4.3) 11/30/18 06:38 [place] # (Auto) 0.7 K/uL (0.0-0.8) 11/30/18 06:38 Eos # (Auto) 0.3 K/uL (0.0-0.7) 11/30/18 06:38 Baso # (Auto) 0.1 K/uL (0.0-0.2) 11/30/18 06:38 PT 15.0 SECONDS (9.7-12.2) H 11/24/18 11:58 INR 1.4 11/24/18 11:58 APTT 39.0 SECONDS (21-34) H 11/24/18 11:58 Sodium 139 mmol/L (132-148) 11/30/18 06:38 Potassium 3.4 mmol/L (3.6-5.2) L 11/30/18 06:38 Chloride 101 mmol/L (98-107) 11/30/18 06:38 Carbon Dioxide 28 mmol/L (22-30) 11/30/18 06:38 Anion Gap 13 (10-20) 11/30/18 06:38 BUN 21 mg/dL (9-20) H 11/30/18 06:38 Creatinine 0.5 mg/dL (0.8-1.5) L 11/30/18 06:38 Est GFR ( Amer) > 60 11/30/18 06:38 Est GFR (Non-Af Amer) > 60 11/30/18 06:38 Random Glucose 99 mg/dL (75-110) 11/30/18 06:38 Calcium 8.0 mg/dl (8.6-10.4) L 11/30/18 06:38 Magnesium 2.1 mg/dL (1.6-2.3) 11/27/18 07:00 Total Bilirubin 0.7 mg/dL (0.2-1.3) 11/30/18 06:38 AST 26 U/L (17-59) 11/30/18 06:38 ALT 21 U/L (21-72) 11/30/18 06:38 Alkaline Phosphatase 74 U/L (38-126) 11/30/18 06:38 Total Protein 6.5 g/dL (6.3-8.3) 11/30/18 06:38 Albumin 3.2 g/dL (3.5-5.0) L 11/30/18 06:38 Globulin 3.3 gm/dL (2.2-3.9) 11/30/18 06:38 Albumin/Globulin Ratio 1.0 (1.0-2.1) 11/30/18 06:38 Urine Color Fabiola (YELLOW) 11/26/18 14:54 Urine Clarity Clear (Clear) 11/26/18 14:54 Urine pH 5.0 (5.0-8.0) 11/26/18 14:54 Ur Specific [place] 1.025 (1.003-1.030) 11/26/18 14:54 Urine Protein 1+ mg/dL (NEGATIVE) H 11/26/18 14:54 Urine Glucose (UA) 1+ mg/dL (Normal) H 11/26/18 14:54 Urine Ketones 1+ mg/dL (NEGATIVE) H 11/26/18 14:54 Urine Blood Negative (NEGATIVE) 11/26/18 14:54 Urine Nitrate Negative (NEGATIVE) 11/26/18 14:54 Urine Bilirubin Negative (NEGATIVE) 11/26/18 14:54 Urine Urobilinogen 4.0 mg/dL (0.2-1.0) 11/26/18 14:54 Ur Leukocyte Esterase 1+ Kasia/uL (Negative) H 11/26/18 14:54 Urine WBC (Auto) 8 /hpf (0-5) H 11/26/18 14:54 Urine RBC (Auto) 2 /hpf (0-3) 11/26/18 14:54 Ur Squamous Epith Cells 2 /hpf (0-5) 11/26/18 14:54 Urine Bacteria Rare (<OCC) 11/26/18 14:54 - Hospital Course Hospital Course: PT IS READMITTED FOR FURTHER DEBRIDEMENT OF SACRAL WOUND PT HAS STAGE 4 SCARAL WOUND AND AFTER 3 OR DEBRIDEMENT STILL HAS PUS OOZING FROM WOUND . ALSO HAS SACRAL OM ON IV AB WOUND C/S LAST WEEK WAS POS FOR PROTEUS AND PSEUDOMONAS PT IS BED BOUND DUE TO MS AND HAS SELF INHIBITION TO MOVE TO CHAIR IN [place] PT WAS TAKEN TO OR FOR FURTHER DEBRIDEMENT AND PER SURGERY WILL NEED MORE EXCISION PT AND BOTH REFUSED FIRTHER TREATMENT WITH MULTIPLE PHYSICIAN CONVINCING THE FAMILY C/S WAS ACETENOBACT. 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
[2018-11-30] MEDS ORDERED: Dakin's Topical 0.25%-Half Strength (480 ml) TOP SCH (12:15)
--- NOTE | 2018-11-30 12:55 | CP.PCM.PN ---
Subjective - Date & Time of Evaluation Date of Evaluation: 11/30/18 Time of Evaluation: 12:52 - Subjective Subjective: PATIENT SEEN AND EXAMINED AT THE BEDSIDE Objective - Vital Signs/Intake and Output Vital Signs (last 24 hours): Temp Pulse Resp BP Pulse Ox 98.6 F 73 20 125/81 97 11/30/18 07:00 11/30/18 07:00 11/30/18 07:00 11/30/18 07:00 11/30/18 07:00 Intake and Output: 11/30/18 11/30/18 06:59 18:59 Output Total 600 Balance -600 - Medications Medications: Current Medications Cyanocobalamin (Vitamin B12 1000 Mcg Tab) 1,000 mcg PO DAILY [facility] Last Admin: 11/30/18 09:36 Dose: 1,000 mcg Diazepam (Valium) 5 mg PO HS [facility] Last Admin: 11/29/18 21:48 Dose: 5 mg Enoxaparin Sodium (Lovenox) 40 mg SC DAILY [facility] Last Admin: 11/30/18 09:37 Dose: 40 mg Famotidine (Pepcid) 20 mg PO HS [facility] Last Admin: 11/29/18 21:48 Dose: 20 mg Tigecycline 50 mg/ Dextrose 100 mls @ 100 mls/hr IVPB Q12H [facility]; Protocol Last Admin: 11/30/18 03:16 Dose: 100 mls/hr Losartan Potassium (Cozaar) 50 mg PO DAILY [facility] Last Admin: 11/30/18 09:36 Dose: 50 mg Potassium Chloride (K-Dur 20 Meq Er Tab) 20 meq PO BID [facility] Stop: 11/30/18 23:59 Last Admin: 11/30/18 09:36 Dose: 20 meq Sodium Hypochlorite (Dakins Solution 0.25%) 0 ml TOP DAILY [facility] - Labs Labs: 11/30/18 06:38 11/30/18 06:38 PT 15.0 SECONDS (9.7-12.2) H 11/24/18 11:58 INR 1.4 11/24/18 11:58 APTT 39.0 SECONDS (21-34) H 11/24/18 11:58 Assessment and Plan - Assessment and Plan (Free Text) Assessment: PLACE UNDER THE SERVICE OF Silviano UNDERWO[facility] AT [facility] HOME MEDICATION PER MED REC ACTIVITY TOLERATED AND FACILITY PROTOCOL WEEKLY CBC BMP AND TYGACYL IVPB Q12H FOR [address] PELAEZ WOUND CARE ORDER Dakins solution irrigation prior to every dressing change for sacral and right lower back pressure injury PER DR PELAEZ CALL DR UNDERWOOD FOR FURTHER ORDERS PATIENT AND PATIENT'S REFUSE ANY FURTHER DEBRIDEMENT AND WOUND VAC PER DR TRINIDAD AND DR PELAEZ RECOMMENDATIONS CASE DISCUSS WITH THE AND PATIENT WHO VERBALIZED AND UNDERSTANDING ABOUT DISCHARGE PATIENT ONLY ON ABX FOR 6 WEEKS
[2018-11-30 16:08] VITALS: BP 116/73; PULSE 96; TEMP 98; O2SAT 100
== END 2018-11-30 16:24 | disposition home or self-care (01) | DRG 571 ==
LOC: C.ER 09:31 → C.9E 14:52 → C.5S 11-25 00:02
PROVIDERS: ADMIT Internal Medicine Cardiovascular Disease; ATTEND Internal Medicine Cardiovascular Disease
PROC: 0JB70ZZ Excision of Back Subcutaneous Tissue and Fascia, Open Approach (ICD-10-PCS; 2018-11-24)
PROC: 0Q913ZZ Drainage of Sacrum, Percutaneous Approach (ICD-10-PCS; 2018-11-24)
PROC: 0Q9 Lower Bones, Drainage (ICD-10-PCS; 2018-11-25)
PROC: 0QB10ZZ Excision of Sacrum, Open Approach (ICD-10-PCS; 2018-11-25)
PROC: 0QB10ZX Excision of Sacrum, Open Approach, Diagnostic (ICD-10-PCS; 2018-11-25)
PROC: 0JB70ZZ Excision of Back Subcutaneous Tissue and Fascia, Open Approach (ICD-10-PCS; principal; 2018-11-25 14:00)
DX: L89.154 Pressure ulcer of sacral region, stage 4 (principal); M46.28 Osteomyelitis of vertebra, sacral and sacrococcygeal region; M53.3 Sacrococcygeal disorders, not elsewhere classified; L89.212 Pressure ulcer of right hip, stage 2; G35 Multiple sclerosis; I10 Essential (primary) hypertension; B96.5 Pseudomonas (aeruginosa) (mallei) (pseudomallei) as the cause of diseases classified elsewhere; B96.4 Proteus (mirabilis) (morganii) as the cause of diseases classified elsewhere; K21.9 Gastro-esophageal reflux disease without esophagitis; Z74.01 Bed confinement status; Z86.73 Personal history of transient ischemic attack (TIA), and cerebral infarction without residual deficits